=== PATIENT | male | born 1945 | race Two or more races ===

== ENCOUNTER 2020-01-17 09:55 | Outpatient (REF) | payer MEDICARE, SELFPAY ==
[2020-01-17 11:00] LABS: Anion Gap 12 (12-20); Blood Urea Nitrogen 33 mg/dL (9-16); Calcium 9.7 mg/dL (8.4-10.2); Carbon Dioxide 26 mmol/L (22-29); Chloride 106 mmol/L (96-108); Estimated Glomerular Filt Rate 25; Phosphorus 2.7 mg/dL (2.7-4.5); Potassium 4.8 mmol/l (3.3-5.1); Sodium 139 mmol/L (135-145)
[2020-01-17 11:49] LABS: Renal w Reflex Lab Use Only Order verified
== END 2020-01-17 09:56 | disposition home or self-care (01) ==
LOC: HO.LAB 09:55
PROVIDERS: PCP Internal Medicine; Visit Provider Internal Medicine Nephrology
DX: I12.9 Hypertensive chronic kidney disease with stage 1 through stage 4 chronic kidney disease, or unspecified chronic kidney disease (principal); N18.30 Chronic kidney disease, stage 3 unspecified
CPT/HCPCS: 80051; 82310; 82565; 84100; 84520

== ENCOUNTER 2020-02-21 09:29 | Outpatient (REF) | payer MEDICARE, SELFPAY ==
[2020-02-21 11:14] LABS: Anion Gap 13 (12-20); Blood Urea Nitrogen 30 mg/dL (9-16); Calcium 9.7 mg/dL (8.4-10.2); Carbon Dioxide 26 mmol/L (22-29); Chloride 108 mmol/L (96-108); Estimated Glomerular Filt Rate 30; Phosphorus 2.6 mg/dL (2.7-4.5); Sodium 142 mmol/L (135-145)
[2020-02-21 11:56] LABS: Renal w Reflex Lab Use Only Order verified
== END 2020-02-21 09:30 | disposition home or self-care (01) ==
LOC: HO.LAB 09:29
PROVIDERS: PCP Internal Medicine; Visit Provider Internal Medicine Nephrology
DX: I12.9 Hypertensive chronic kidney disease with stage 1 through stage 4 chronic kidney disease, or unspecified chronic kidney disease (principal); N18.30 Chronic kidney disease, stage 3 unspecified
CPT/HCPCS: 80051; 82310; 82565; 84100; 84520

== ENCOUNTER 2020-05-29 09:40 | Outpatient (REF) | payer MEDICARE, SELFPAY ==
[2020-05-29 11:05] LABS: Anion Gap 9 (12-20); Blood Urea Nitrogen 34 mg/dL (9-16); Calcium 9.8 mg/dL (8.4-10.2); Carbon Dioxide 31 mmol/L (22-29); Chloride 105 mmol/L (96-108); Estimated Glomerular Filt Rate 29; Phosphorus 2.8 mg/dL (2.7-4.5); Potassium 4.8 mmol/L (3.3-5.1); Sodium 140 mmol/L (135-145)
[2020-05-29 11:54] LABS: Renal w Reflex Lab Use Only Order verified
== END 2020-05-29 09:41 | disposition home or self-care (01) ==
LOC: HO.LAB 09:40
PROVIDERS: PCP Internal Medicine; Visit Provider Internal Medicine Nephrology
DX: I12.9 Hypertensive chronic kidney disease with stage 1 through stage 4 chronic kidney disease, or unspecified chronic kidney disease (principal); N18.30 Chronic kidney disease, stage 3 unspecified
CPT/HCPCS: 36415; 80051; 82310; 82565; 84100; 84520

== ENCOUNTER → 2020-06-25 13:54 | Outpatient (BNVA) | payer MEDICARE, SELFPAY | PROVIDERS: PCP Internal Medicine; Visit Provider Internal Medicine | DX: J44.9 Chronic obstructive pulmonary disease, unspecified (principal); J61 Pneumoconiosis due to asbestos and other mineral fibers; J84.10 Pulmonary fibrosis, unspecified | CPT/HCPCS: 99212 ==

== ENCOUNTER 2020-08-28 09:39 | Outpatient (REF) | payer MEDICARE, SELFPAY ==
[2020-08-28 10:50] LABS: MANUAL DIFF FLAG NO
[2020-08-28 11:00] LABS: Basophils Absolute Auto 0.1 X10*3/uL (0.0-0.2); Basophils Percent Auto 0.9 % (0-2); Eosinophils Absolute Auto 1.3 X10*3/uL (0.0-0.4); Eosinophils Percent Auto 16.5 % (0-4); Hematocrit 33.4 % (42-52); Hemoglobin 10.1 g/dl (14.0-18.0); Imm Gran Abs Auto 0.02 X10*3/uL (0.00-0.03); Imm Gran Pct Auto 0.3 % (0.0-0.4); Lymphocytes Absolute Auto 1.7 X10*3/uL (1.2-4.9); Lymphocytes Percent Auto 21.1 % (20-40); Mean Corpuscular HGB Conc 30.2 g/dl (31.0-36.0); Mean Corpuscular Hemoglobin 25.3 pg (27.0-33.0); Mean Corpuscular Volume 83.5 fL (80-98); Mean Platelet Volume 11.2 fL (9.4-12.4); Monocytes Absolute Auto 0.8 X10*3/uL (0.1-1.2); Monocytes Percent Auto 9.9 % (2-11); Neutrophils Absolute Auto 4.1 X10*3/uL (2.0-8.3); Neutrophils Percent Auto 51.3 % (45-73); Platelet Count 221 X10*3/uL (160-400); Red Cell Distribution Width 14.8 % (11.0-16.0)
[2020-08-28 11:23] LABS: Anion Gap 9 (12-20); Blood Urea Nitrogen 28 mg/dL (9-16); Calcium 9.8 mg/dL (8.4-10.2); Carbon Dioxide 27 mmol/L (22-29); Chloride 109 mmol/L (96-108); Estimated Glomerular Filt Rate 32; Potassium 4.8 mmol/L (3.3-5.1); Sodium 140 mmol/L (135-145)
== END 2020-08-28 09:40 | disposition home or self-care (01) ==
LOC: HO.LAB 09:39
PROVIDERS: PCP Internal Medicine; Visit Provider Internal Medicine Nephrology
DX: I12.9 Hypertensive chronic kidney disease with stage 1 through stage 4 chronic kidney disease, or unspecified chronic kidney disease (principal); N18.31 Chronic kidney disease, stage 3a
CPT/HCPCS: 36415; 80051; 82310; 82565; 84520; 85025

== ENCOUNTER → 2020-10-10 14:59 | Outpatient (BNVA) | payer MEDICARE, SELFPAY | PROVIDERS: PCP Internal Medicine; Visit Provider Internal Medicine | DX: J84.10 Pulmonary fibrosis, unspecified (principal); J44.9 Chronic obstructive pulmonary disease, unspecified; Z79.899 Other long term (current) drug therapy | CPT/HCPCS: 99212 ==

== ENCOUNTER 2020-12-17 11:34 | Outpatient (REF) | payer MEDICARE, SELFPAY ==
[2020-12-17 12:44] LABS: Anion Gap 13 (12-20); Blood Urea Nitrogen 29 mg/dL (9-16); Calcium 9.6 mg/dL (8.4-10.2); Carbon Dioxide 23 mmol/L (22-29); Chloride 106 mmol/L (96-108); Estimated Glomerular Filt Rate 31; Potassium 4.8 mmol/L (3.3-5.1); Sodium 137 mmol/L (135-145)
== END 2020-12-17 11:35 | disposition home or self-care (01) ==
LOC: HO.LAB 11:34
PROVIDERS: Absent Provider Internal Medicine; PCP Internal Medicine; Visit Provider Internal Medicine Nephrology
DX: I12.9 Hypertensive chronic kidney disease with stage 1 through stage 4 chronic kidney disease, or unspecified chronic kidney disease (principal); N18.31 Chronic kidney disease, stage 3a
CPT/HCPCS: 36415; 80051; 82310; 82565; 84520

== ENCOUNTER → 2021-02-26 15:07 | Outpatient (BNVA) | payer MEDICARE, SELFPAY | PROVIDERS: PCP Internal Medicine; Visit Provider Internal Medicine | DX: J44.9 Chronic obstructive pulmonary disease, unspecified (principal); J84.10 Pulmonary fibrosis, unspecified | CPT/HCPCS: 99212 ==

== ENCOUNTER 2021-03-18 09:41 | Outpatient (REF) | payer MEDICARE, SELFPAY ==
[2021-03-18 10:36] LABS: Anion Gap 11 (12-20); Blood Urea Nitrogen 32 mg/dL (9-16); Calcium 9.8 mg/dL (8.4-10.2); Carbon Dioxide 22 mmol/L (22-29); Chloride 110 mmol/L (96-108); Estimated Glomerular Filt Rate 27; Potassium 4.4 mmol/L (3.3-5.1); Sodium 139 mmol/L (135-145)
== END 2021-03-18 09:42 | disposition home or self-care (01) ==
LOC: HO.LAB 09:41
PROVIDERS: Visit Provider Internal Medicine Nephrology
DX: I12.9 Hypertensive chronic kidney disease with stage 1 through stage 4 chronic kidney disease, or unspecified chronic kidney disease (principal); N18.31 Chronic kidney disease, stage 3a
CPT/HCPCS: 36415; 80051; 82310; 82565; 84520

== ENCOUNTER 2021-06-16 15:02 | Outpatient (REF) | payer OTHER, SELFPAY ==
--- NOTE | ~2021-06-16 | XR_ITS ---
EXAMINATION: XR CHEST CLINICAL INFORMATION: Localized edema COMPARISON: Chest x-ray 11/07/2019. TECHNIQUE: 2 views of the chest were obtained. FINDINGS: The lungs are expanded with increased bilateral pulmonary vascularity and perihilar interstitial thickening consistent with interstitial edema. There is moderate cardiomegaly. No consolidation seen. Trace linear hyperdensity seen along the right diaphragm. There is blunting of bilateral CP angle likely pleural effusion. No gross bony abnormality XR/XR chest 2V IMPRESSION: Cardiomegaly with CHF. Bilateral small pleural effusions.
== END 2021-06-16 15:03 | disposition home or self-care (01) ==
LOC: HO.XRAY 15:02
PROVIDERS: PCP Internal Medicine; Visit Provider Internal Medicine
DX: R60.0 Localized edema (principal)
CPT/HCPCS: 71046

== ENCOUNTER → 2021-06-25 14:08 | Outpatient (BNVA) | payer OTHER, SELFPAY | PROVIDERS: PCP Internal Medicine; Visit Provider Internal Medicine | DX: J61 Pneumoconiosis due to asbestos and other mineral fibers (principal); J84.10 Pulmonary fibrosis, unspecified; J44.9 Chronic obstructive pulmonary disease, unspecified | CPT/HCPCS: 99212 ==

== ENCOUNTER 2021-07-17 10:38 | Outpatient (REF) | payer OTHER, SELFPAY ==
[2021-07-17 12:26] LABS: Anion Gap 11 (12-20); Blood Urea Nitrogen 23 mg/dL (9-16); Calcium 10.4 mg/dL (8.4-10.2); Carbon Dioxide 29 mmol/L (22-29); Chloride 102 mmol/L (96-108); Estimated Glomerular Filt Rate 36; Sodium 137 mmol/L (135-145)
[2021-07-18 13:02] LABS: Calcium (PTHI) 10.4 mg/dL (8.6-10.3); PTHI 140 pg/mL (16-77)
== END 2021-07-17 10:39 | disposition home or self-care (01) ==
LOC: HO.LAB 10:38
PROVIDERS: PCP Internal Medicine; Visit Provider Internal Medicine Nephrology
DX: I11.0 Hypertensive heart disease with heart failure (principal); N18.31 Chronic kidney disease, stage 3a
CPT/HCPCS: 36415; 80051; 82310; 82565; 83970; 84520

== ENCOUNTER → 2021-07-30 10:41 | Outpatient (BNVA) | payer OTHER, SELFPAY | PROVIDERS: PCP Internal Medicine; Visit Provider Internal Medicine | DX: J44.9 Chronic obstructive pulmonary disease, unspecified (principal); J61 Pneumoconiosis due to asbestos and other mineral fibers; J84.10 Pulmonary fibrosis, unspecified | CPT/HCPCS: 99212 ==

== ENCOUNTER 2021-11-13 09:18 | Outpatient (REF) | payer OTHER, SELFPAY ==
[2021-11-13 10:44] LABS: Anion Gap 16 (12-20); Blood Urea Nitrogen 31 mg/dL (9-16); Calcium 9.8 mg/dL (8.4-10.2); Carbon Dioxide 26 mmol/L (22-29); Chloride 102 mmol/L (96-108); Estimated Glomerular Filt Rate 30; Sodium 140 mmol/L (135-145)
== END 2021-11-13 09:19 | disposition home or self-care (01) ==
LOC: HO.LAB 09:18
PROVIDERS: Visit Provider Internal Medicine Nephrology
DX: I12.9 Hypertensive chronic kidney disease with stage 1 through stage 4 chronic kidney disease, or unspecified chronic kidney disease (principal); N18.31 Chronic kidney disease, stage 3a
CPT/HCPCS: 36415; 80051; 82310; 82565; 84520

== ENCOUNTER → 2021-11-26 10:44 | Outpatient (BNVA) | payer OTHER, SELFPAY | PROVIDERS: PCP Internal Medicine; Visit Provider Internal Medicine | DX: J44.9 Chronic obstructive pulmonary disease, unspecified (principal); J61 Pneumoconiosis due to asbestos and other mineral fibers; J84.10 Pulmonary fibrosis, unspecified; G47.34 Idiopathic sleep related nonobstructive alveolar hypoventilation | CPT/HCPCS: 99212 ==

== ENCOUNTER 2022-01-13 10:11 | Outpatient (REF) | payer OTHER, SELFPAY ==
--- NOTE | ~2022-01-13 | XR_ITS ---
EXAMINATION: XR LUMBOSACRAL SPINE CLINICAL INFORMATION: Low back pain COMPARISON: Chest radiographs 06/16/2021, CT chest 09/12/2018. TECHNIQUE: Three views of the lumbosacral spine. FINDINGS: There is normal lumbar segmentation with 5 nonrib-bearing lumbar vertebrae and normal lumbar lordosis. There is generalized osteopenia/osteoporosis. A chronic T12 compression deformity is present similar to prior studies. There are accentuated soft and concave endplates at L2, L4, and L5. There is additional loss of height of L5 of uncertain chronicity. No destructive process or erosive change. No spondylolisthesis. The SI joints and visualized sacrum are unremarkable. XR/XR lumbar spine 2-3V IMPRESSION: 1. Generalized osteopenia/osteoporosis. 2. Chronic T12 compression deformity similar to prior studies. 3. Loss of height L5 of uncertain chronicity. Accentuated endplate concavity at L2, L4, and L5. 4. No spondylolisthesis or destructive process.
== END 2022-01-13 10:12 | disposition home or self-care (01) ==
LOC: HO.XRAY 10:11
PROVIDERS: PCP Internal Medicine; Visit Provider Internal Medicine
DX: M54.50 Low back pain, unspecified (principal)
CPT/HCPCS: 72100

== ENCOUNTER 2022-02-26 10:19 | Outpatient (REF) | payer OTHER, SELFPAY ==
[2022-02-26 12:41] LABS: Anion Gap 12 (12-20); Blood Urea Nitrogen 22 mg/dL (9-16); Calcium 10.3 mg/dL (8.4-10.2); Carbon Dioxide 28 mmol/L (22-29); Chloride 103 mmol/L (96-108); Estimated Glomerular Filt Rate 29; Potassium 4.1 mmol/L (3.3-5.1); Sodium 139 mmol/L (135-145)
== END 2022-02-26 10:20 | disposition home or self-care (01) ==
LOC: HO.LAB 10:19
PROVIDERS: PCP Internal Medicine; Visit Provider Internal Medicine Nephrology
DX: I12.9 Hypertensive chronic kidney disease with stage 1 through stage 4 chronic kidney disease, or unspecified chronic kidney disease (principal); N18.31 Chronic kidney disease, stage 3a
CPT/HCPCS: 36415; 80051; 82310; 82565; 84520

== ENCOUNTER → 2022-04-01 13:47 | Outpatient (BNVA) | payer OTHER, SELFPAY | PROVIDERS: PCP Internal Medicine; Visit Provider Internal Medicine | DX: J44.9 Chronic obstructive pulmonary disease, unspecified (principal); J61 Pneumoconiosis due to asbestos and other mineral fibers; G47.34 Idiopathic sleep related nonobstructive alveolar hypoventilation | CPT/HCPCS: 99212 ==

== ENCOUNTER 2022-06-05 09:31 | Outpatient (REF) | payer OTHER, SELFPAY ==
[2022-06-05 11:05] LABS: Anion Gap 11 (12-20); Blood Urea Nitrogen 22 mg/dL (9-16); Calcium 9.5 mg/dL (8.4-10.2); Carbon Dioxide 28 mmol/L (22-29); Chloride 104 mmol/L (96-108); Estimated Glomerular Filt Rate 30; Potassium 4.2 mmol/L (3.3-5.1); Sodium 139 mmol/L (135-145)
== END 2022-06-05 09:32 | disposition home or self-care (01) ==
LOC: HO.LAB 09:31
PROVIDERS: PCP Internal Medicine; Visit Provider Internal Medicine Nephrology
DX: I12.9 Hypertensive chronic kidney disease with stage 1 through stage 4 chronic kidney disease, or unspecified chronic kidney disease (principal); N18.31 Chronic kidney disease, stage 3a
CPT/HCPCS: 36415; 80051; 82310; 82565; 84520

== ENCOUNTER → 2022-07-08 10:30 | Outpatient (BNVA) | payer OTHER, SELFPAY | PROVIDERS: PCP Internal Medicine; Visit Provider Internal Medicine | DX: J44.9 Chronic obstructive pulmonary disease, unspecified (principal); J61 Pneumoconiosis due to asbestos and other mineral fibers; G47.34 Idiopathic sleep related nonobstructive alveolar hypoventilation | CPT/HCPCS: 99212 ==

== ENCOUNTER 2022-10-08 09:21 | Outpatient (REF) | payer OTHER, SELFPAY ==
[2022-10-08 11:18] LABS: Anion Gap 11 (12-20); Blood Urea Nitrogen 22 mg/dL (9-16); Calcium 10.2 mg/dL (8.4-10.2); Carbon Dioxide 25 mmol/L (22-29); Chloride 106 mmol/L (96-108); Estimated Glomerular Filt Rate 34; Potassium 4.2 mmol/L (3.3-5.1); Sodium 138 mmol/L (135-145)
== END 2022-10-08 09:22 | disposition home or self-care (01) ==
LOC: HO.LAB 09:21
PROVIDERS: PCP Internal Medicine Nephrology; Visit Provider Internal Medicine Nephrology
DX: I12.9 Hypertensive chronic kidney disease with stage 1 through stage 4 chronic kidney disease, or unspecified chronic kidney disease (principal); N18.31 Chronic kidney disease, stage 3a
CPT/HCPCS: 36415; 80051; 82310; 82565; 84520

== ENCOUNTER 2022-11-11 10:59 | Outpatient (AMB) | payer OTHER, SELFPAY ==
[2022-11-11 11:03] VITALS: BP 152/62; PULSE 79; O2SAT 92; BMI 32.2
--- NOTE | 2022-11-11 11:03 | MHC.OFFVIS ---
Intake Vital Signs 11/11/22 11:03 Height 5 ft 4 in Weight 187 lb 6.287 oz BMI 32.2 BP 152/62 H Blood Pressure Location Lt brachial Position Sitting Pulse 79 Pulse Source Pulse Oximeter Pulse Oximetry (%) 92 Oxygen Delivery Method Room Air Intake Visit Reasons: copd Allergies No Known Allergies Allergy (Verified 11/11/22 11:18) Medication List - Last Reconciled 11/11/22 by Lorin Perry MD albuterol sulfate 90 mcg/actuation 2 puffs inhalation Q4-6H PRN 30 days apixaban (Eliquis) 5 mg PO BID diltiazem HCl ER 360 mg PO DAILY hydralazine 100 mg PO TID isosorbide mononitrate ER 120 mg PO DAILY labetalol 100 mg PO DAILY losartan 100 mg PO DAILY omeprazole 20 mg PO DAILY tamsulosin 0.4 mg PO BEDTIME umeclidinium 62.5 mcg/actuation (Incruse Ellipta) 1 inh inhalation DAILY 30 days Do you need a note to return to daycare/school/sports/work: No HPI copd HPI Details 77 years old very pleasant, Australian-speaking gentleman, comes for his regular follow-up. He does not smoke. Breathing status has remained very stable without any acute exacerbation. Continues to use Incruse Ellipta once a day and Ventolin inhaler only as needed, which is rare. Denies cough or expectoration and denies any wheezing attacks. [facility] Medical History COPD (chronic obstructive pulmonary disease) Nocturnal hypoxemia Pulmonary asbestosis Pulmonary fibrosis Social History Patient Tobacco Use Status: Never used Tobacco Review of Systems Const All systems reviewed & are unremarkable except as noted in HPI and below Eyes Reports no additional complaints ENT Reports nasal congestion (Mild intermittent) Card Denies irregular heart rhythm and Denies leg edema Resp Reports as per HPI GI Reports heartburn (Controlled with med) Reports no additional complaints Musc Reports no additional complaints Skin/Breast Reports system reviewed and no additional complaints, except as documented Neuro Reports no additional complaints Psych Reports no additional complaints Physical Exam Vital Signs: Last Vital Signs Pulse 79 11/11/22 11:03 BP 152/62 H 11/11/22 11:03 Pulse Ox 92 11/11/22 11:03 Oxygen Delivery Method Room Air 11/11/22 11:03 BMI result Body Mass Index 32.2 Const General: comfortable, no acute distress, alert and awake Orientation/consciousness: patient oriented x3 HEENT Head: Yes normal to inspection General nose exam: No nasal polyps present and No nasal discharge present Face and sinus: Yes sinuses nontender Mouth: oropharynx normal Throat: Yes posterior oropharynx normal Eyes General: appearance normal, both eyes and all related structures Neck Neck: Yes normal visual inspection, Yes no lymphadenopathy, Yes trachea midline and Yes no JVD Thyroid: Thyroid normal Chest Chest palpation & inspection: normal inspection of the chest, normal palpation of entire chest wall and no tenderness Resp Other: Percussion note is resonant, he has equal breath sounds on both sides somewhat distant with prolonged expiratory phase. NO WHEEZES OR CREPITATIONS ARE HEARD. Cardio Palpation: normal PMI Rate: regular rate Rhythm: regular rhythm Heart sounds: no gallops and no murmurs GI Palpation (GI): Soft to palpation, nontender, No hepatosplenomegaly present and no masses Auscultation: normal bowel sounds Back/Spine/Pelvis Thoracic/Lumbar Spine: thoracic and lumbar spine normal to inspection Skin General skin exam: no rashes or lesions noted Neuro General: patient oriented x3 and no focal motor deficits Cranial nerves: Yes CN's II-XII intact bilaterally Extrem General: Yes normal to inspection, Yes no clubbing, cyanosis or edema and Yes no calf tenderness Psych Appearance: grossly normal and well kempt Speech and movement: Normal speech and movement present Assessment & Plan Assessment & Plan (1) COPD (chronic obstructive pulmonary disease): Comment: MILD TO MODERTAE DEGREE OF COPD , MOSTLY WELL CONTROLLED, COMPLAINS OF MILD INTERMITTENT COUGH . TX: INCRUSE ELLIPTA 1 INHALATION DAILY TO CONTINUE. VENTOLIN 2 PUFFS Q 4-6 HOURS P.R.N. TO CONTINUE MAY TAKE COUGH MEDICINE SUCH ROBITUSSIN, 2 TSP T.I.D. P.R.N.. Code(s): J44.9 - Chronic obstructive pulmonary disease, unspecified (2) Pulmonary asbestosis: Comment: CHRONIC , MINIMAL. STABLE . Code(s): J61 - Pneumoconiosis due to asbestos and other mineral fibers (3) Pulmonary fibrosis: Comment: MILD , SEC TO ASBESTOSIS ,STABLE . DOES NOT NEED ANY ACTIVE MEDICATION. Code(s): J84.10 - Pulmonary fibrosis, unspecified (4) Nocturnal hypoxemia: Comment: DUE TO HIS COPD/CONGESTIVE HEART FAILURE HE DOES HAVE HISTORY OF NOCTURNAL HYPOXEMIA. TX: ADVISED TO CONTINUE USING OXYGEN 2 L/MINUTE AT NIGHT , MAY ALSO USE P.R.N. DURING THE DAYTIME IF HE FEELS SHORT OF BREATH. Code(s): G47.34 - Idiopathic sleep related nonobstructive alveolar hypoventilation Coding Level of Care Code Est Pt Level 3 (29660) Diagnoses COPD (chronic obstructive pulmonary disease) J44.9 Pulmonary asbestosis J61 Pulmonary fibrosis J84.10 Nocturnal hypoxemia G47.34
== END 2022-11-11 11:19 | disposition home or self-care (01) ==
PROVIDERS: PCP Internal Medicine; Visit Provider Internal Medicine
DX: J44.9 Chronic obstructive pulmonary disease, unspecified (principal); J61 Pneumoconiosis due to asbestos and other mineral fibers; J84.10 Pulmonary fibrosis, unspecified; G47.34 Idiopathic sleep related nonobstructive alveolar hypoventilation
CPT/HCPCS: 99213

== ENCOUNTER → 2022-11-11 10:59 | Outpatient (BNVA) | payer OTHER, SELFPAY | PROVIDERS: Visit Provider Internal Medicine | DX: J44.9 Chronic obstructive pulmonary disease, unspecified (principal); J61 Pneumoconiosis due to asbestos and other mineral fibers; J84.10 Pulmonary fibrosis, unspecified; G47.34 Idiopathic sleep related nonobstructive alveolar hypoventilation | CPT/HCPCS: 99212 ==

== ENCOUNTER 2023-01-07 09:33 | Outpatient (REF) | payer OTHER, SELFPAY ==
[2023-01-07 12:06] LABS: Anion Gap 12 (12-20); Blood Urea Nitrogen 22 mg/dL (9-16); Calcium 10.3 mg/dL (8.4-10.2); Carbon Dioxide 24 mmol/L (22-29); Chloride 108 mmol/L (96-108); Estimated Glomerular Filt Rate 33; Potassium 3.5 mmol/L (3.3-5.1); Sodium 140 mmol/L (135-145)
[2023-01-07 13:37] LABS: Creatinine Urine 114.71 mg/dL; Total Protein Urine Random 46 mg/dL (<12)
== END 2023-01-07 09:34 | disposition home or self-care (01) ==
LOC: HO.LAB 09:33
PROVIDERS: PCP Internal Medicine; Visit Provider Internal Medicine Nephrology
DX: I12.9 Hypertensive chronic kidney disease with stage 1 through stage 4 chronic kidney disease, or unspecified chronic kidney disease (principal); N18.31 Chronic kidney disease, stage 3a
CPT/HCPCS: 36415; 80051; 82310; 82565; 82570; 84156; 84520

== ENCOUNTER 2023-01-22 10:49 | Outpatient (AMB) | payer OTHER, SELFPAY ==
[2023-01-22 11:14] VITALS: BP 144/70; PULSE 64; BMI 32.5
--- NOTE | 2023-01-22 11:14 | HO.NEPHOV_ITS ---
Intake Vital Signs 01/22/23 11:14 Height 5 ft 4 in Weight 189 lb 6 oz BMI 32.5 BP 144/70 H Blood Pressure Location Lt brachial Position Sitting Pulse 64 Pulse Source Pulse Oximeter Intake Visit Reasons: CKD HTN - Confirmed Supervisor Litharge Required: Yes Supervisor Litharge Name: Jerrica Accompanied by: Family/Other Allergies No Known Allergies Allergy (Verified 01/22/23 11:15) HPI HPI Comments History of Present Illness Details I had the privilege of seeing Karri in follow up for CKD and hypertension. He has pulmonary fibrosis. He denies DM but has hypertension for a long time. He denies neuropathy , retinopathy, ROSALIND , PAD or carotid stenosis. He is on SGLT2i. He does not take NSAID's regularly. He denies any nausea, vomiting, diarrhea, worsening SOB, edema, PND, orthopnea, hematuria, hearing deficits hepatitis or HIV. He claims to be compliant with medications. He has no sinusitis, epistaxis, photosensitivity, bone pain, sore throat , hemoptysis, skin lesions or recent antibiotic intake. He denied any new active complaints at the time of this office visit Assessment & Plan Assessment & Plan (1) Hypertension: Code(s): I10 - Essential (primary) hypertension (2) CKD (chronic kidney disease) stage 3, GFR 30-59 ml/min: Code(s): N18.30 - Chronic kidney disease, stage 3 unspecified Plan Renal function stable Blood pressure at goal On SGLT2 i; No NSAID's Needs weight loss No medication changes today Labs ordered; Answered all questions Follow up given Time spent reviewing chart, encounter,ordering labs,documentation 31 minutes Orders: Orders Electrolytes 01/22/23 I10 - Essential (primary) hypertension, N18.30 - Chronic kidney disease, stage 3 unspecified Calcium 01/22/23 I10 - Essential (primary) hypertension, N18.30 - Chronic kidney disease, stage 3 unspecified Protein Creatinine Ratio, Ur 01/22/23 I10 - Essential (primary) hypertension, N18.30 - Chronic kidney disease, stage 3 unspecified Blood Urea Nitrogen 01/22/23 I10 - Essential (primary) hypertension, N18.30 - Chronic kidney disease, stage 3 unspecified Creatinine 01/22/23 I10 - Essential (primary) hypertension, N18.30 - Chronic kidney disease, stage 3 unspecified Coding Level of Care Code Est Pt Level 3 (59734) Diagnoses Hypertension I10 CKD (chronic kidney disease) stage 3, GFR 30-59 ml/min N18.30 [facility] Medical History COPD (chronic obstructive pulmonary disease) Nocturnal hypoxemia Pulmonary asbestosis Pulmonary fibrosis Social History Patient Tobacco Use Status: Never used Tobacco
== END 2023-01-22 11:38 | disposition home or self-care (01) ==
LOC: HO.HKA 10:49
PROVIDERS: PCP Internal Medicine; Visit Provider Internal Medicine Nephrology
DX: I12.9 Hypertensive chronic kidney disease with stage 1 through stage 4 chronic kidney disease, or unspecified chronic kidney disease (principal); N18.30 Chronic kidney disease, stage 3 unspecified
CPT/HCPCS: 99214

== ENCOUNTER → 2023-01-22 10:49 | Outpatient (BNVA) | payer OTHER, SELFPAY | PROVIDERS: PCP Internal Medicine; Visit Provider Internal Medicine Nephrology | DX: I12.9 Hypertensive chronic kidney disease with stage 1 through stage 4 chronic kidney disease, or unspecified chronic kidney disease (principal); N18.30 Chronic kidney disease, stage 3 unspecified | CPT/HCPCS: 99212 ==

== ENCOUNTER 2023-04-22 10:23 | Outpatient (REF) | payer OTHER, SELFPAY ==
[2023-04-22 12:12] LABS: Anion Gap 10 (12-20); Blood Urea Nitrogen 20 mg/dL (9-16); Calcium 9.8 mg/dL (8.4-10.2); Carbon Dioxide 24 mmol/L (22-29); Chloride 109 mmol/L (96-108); Estimated Glomerular Filt Rate 38; Potassium 4.1 mmol/L (3.3-5.1); Sodium 139 mmol/L (135-145)
[2023-04-22 12:37] LABS: Creatinine Urine 122.66 mg/dL; Protein/Creatinine Ratio, Ur 0.61 (<0.2); Total Protein Urine Random 75 mg/dL (<12)
== END 2023-04-22 10:24 | disposition home or self-care (01) ==
LOC: HO.LAB 10:23
PROVIDERS: PCP Internal Medicine; Visit Provider Internal Medicine Nephrology
DX: I12.9 Hypertensive chronic kidney disease with stage 1 through stage 4 chronic kidney disease, or unspecified chronic kidney disease (principal); N18.30 Chronic kidney disease, stage 3 unspecified
CPT/HCPCS: 36415; 80051; 82310; 82565; 82570; 84156; 84520

== ENCOUNTER 2023-04-23 10:43 | Outpatient (AMB) | payer OTHER, SELFPAY ==
[2023-04-23 10:48] VITALS: BP 140/80; PULSE 79; BMI 32.7
--- NOTE | 2023-04-23 10:48 | HO.NEPHOV_ITS ---
HPI HPI Comments History of Present Illness Details I had the privilege of seeing Karri in follow up for CKD and hypertension. He has pulmonary fibrosis. He denies DM but has hypertension for a long time. He denies neuropathy , retinopathy, ROSALIND , PAD or carotid stenosis. He is on SGLT2i. He does not take NSAID's regularly. He denies any nausea, vomiting, diarrhea, worsening SOB, edema, PND, orthopnea, hematuria, hearing deficits hepatitis or HIV. He claims to be compliant with medications. He has no sinusitis, epistaxis, photosensitivity, bone pain, sore throat , hemoptysis, skin lesions or recent antibiotic intake. He denied any new active complaints at the time of this office visit [facility] Medical History COPD (chronic obstructive pulmonary disease) Nocturnal hypoxemia Pulmonary asbestosis Pulmonary fibrosis Social History Patient Tobacco Use Status: Never used Tobacco Vital Signs 04/23/23 10:48 Height 5 ft 4 in Weight 190 lb 8 oz BMI 32.7 BP 140/80 H Blood Pressure Location Lt brachial Position Sitting Pulse 79 Pulse Source Pulse Oximeter Physical Exam Vital Signs: Last Vital Signs Pulse 79 04/23/23 10:48 BP 140/80 H 04/23/23 10:48 BMI result Body Mass Index 32.7 Const General: comfortable and no acute distress Orientation/consciousness: patient oriented x3 HEENT Head: Yes normocephalic Mouth: Normal oral and palatal mucosa present Eyes EOM: EOMs intact bilaterally Neck Neck: Yes supple Resp Auscultation: clear to auscultation bilaterally Cardio Jugular venous distension: no JVD Rate: regular rate GI Palpation (GI): Soft to palpation Auscultation: normal bowel sounds General: Yes no CVA tenderness Back/Spine/Pelvis Back: no CVA tenderness Skin General skin exam: no rashes or lesions noted Neuro General: patient oriented x3 and moves all extremities Extrem General: Yes pedal edema Assessment & Plan Assessment & Plan (1) CKD (chronic kidney disease) stage 3, GFR 30-59 ml/min: Code(s): N18.30 - Chronic kidney disease, stage 3 unspecified Qualifiers: Chronic kidney disease stage 3 subtype: stage 3b (GFR 30-44) Qualified Code(s): N18.32 - Chronic kidney disease, stage 3b (2) Hypertension: Code(s): I10 - Essential (primary) hypertension Qualifiers: Hypertension type: primary hypertension Qualified Code(s): I10 - Essential (primary) hypertension Plan Renal function stable/better Blood pressure at goal On SGLT2 i; No NSAID's Needs weight loss Increased torsemide to 40 mg / 20 mg every other day No other medication changes today Labs ordered; Answered all questions Follow up given Orders: Orders Blood Urea Nitrogen Today I10 - Essential (primary) hypertension, N18.30 - Chronic kidney disease, stage 3 unspecified Electrolytes Today I10 - Essential (primary) hypertension, N18.30 - Chronic kidney disease, stage 3 unspecified Creatinine Today I10 - Essential (primary) hypertension, N18.30 - Chronic kidney disease, stage 3 unspecified Medications: Changed From torsemide 20 mg PO DAILY To torsemide take 2 tablets alternating with one tablet every other day 20 mg PO DAILY 45 tabs 6RF Coding Level of Care Code Est Pt Level 4 (23567) Diagnoses Stage 3b chronic kidney disease N18.32 Chronic kidney disease stage 3 subtype: stage 3b (GFR 30-44) Primary hypertension I10 Hypertension type: primary hypertension Results Reviewed Nephrology Results: Sodium 139 mmol/L (135-145) 04/22/23 Potassium 4.1 mmol/L (3.3-5.1) 04/22/23 Chloride 109 mmol/L (96-108) H 04/22/23 Carbon Dioxide 24 mmol/L (22-29) 04/22/23 BUN 20 mg/dL (9-16) H 04/22/23 Creatinine 1.76 mg/dL (0.5-1.4) H 04/22/23 Calcium 9.8 mg/dL (8.4-10.2) 04/22/23 Urine Creatinine 122.66 mg/dL 04/22/23 Protein/Creatinin Ratio 0.61 (<0.2) H 04/22/23
== END 2023-04-23 11:09 | disposition home or self-care (01) ==
PROVIDERS: PCP Internal Medicine; Visit Provider Internal Medicine Nephrology
DX: N18.32 Chronic kidney disease, stage 3b (principal); I10 Essential (primary) hypertension
CPT/HCPCS: 99214

== ENCOUNTER → 2023-04-23 10:43 | Outpatient (BNVA) | payer OTHER, SELFPAY | PROVIDERS: PCP Internal Medicine; Visit Provider Internal Medicine Nephrology | DX: I12.9 Hypertensive chronic kidney disease with stage 1 through stage 4 chronic kidney disease, or unspecified chronic kidney disease (principal); N18.30 Chronic kidney disease, stage 3 unspecified | CPT/HCPCS: 99212 ==

== ENCOUNTER 2023-05-19 12:44 | Outpatient (AMB) | payer OTHER, SELFPAY ==
--- NOTE | 2023-05-19 13:13 | A.OFFVIS_ITS ---
Intake Vital Signs 05/19/23 13:14 Height 5 ft 4 in Weight 189 lb BMI 32.4 BP 130/62 Blood Pressure Location Lt brachial Position Sitting Pulse 72 Pulse Source Pulse Oximeter Pulse Oximetry (%) 94 Oxygen Delivery Method Room Air Intake Visit Reasons: copd Intake Note: pt is here for follow up and states he is coughing a little, walking does cause him to have some short of breath. 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 Allergies No Known Allergies Allergy (Verified 05/19/23 13:35) Medication List - Last Reconciled 05/19/23 by Lorin Perry MD albuterol sulfate 90 mcg/actuation 2 puffs inhalation Q4-6H PRN 30 days apixaban (Eliquis) 5 mg PO BID aspirin 81 mg PO DAILY cholecalciferol (vitamin D3) (Vitamin D3) 25 mcg PO DAILY dapagliflozin propanediol (Farxiga) 10 mg PO DAILY diltiazem HCl ER 360 mg PO DAILY hydralazine 50 mg PO TID losartan 50 mg PO DAILY omeprazole 20 mg PO DAILY torsemide 20 mg PO DAILY umeclidinium 62.5 mcg/actuation (Incruse Ellipta) 1 inh inhalation DAILY 30 days Do you need a note to return to daycare/school/sports/work: No HPI copd HPI Details 77 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 HE CLAIMS TO BE MORE SHORT OF BREATH WHEN HE STARTS WALKING AROUND, COUGH IS ONLY MINIMAL WITHOUT MUCH EXPECTORATION. .DENIES ANY WHEEZING ATTACKS. HE FEELS OKAY WHEN HE IS JUST SITTING AND RESTING . HE HAS HAD NO RECENT RESPIRATORY INFECTION. [facility] Medical History Nocturnal hypoxemia Pulmonary fibrosis Pulmonary asbestosis COPD (chronic obstructive pulmonary disease) Social History Patient Tobacco Use Status: Never used Tobacco Review of Systems Const All systems reviewed & are unremarkable except as noted in HPI and below Eyes Reports no additional complaints ENT Reports nasal congestion (Mild intermittent) Card Denies irregular heart rhythm and Denies leg edema Resp Reports as per HPI GI Reports heartburn (Controlled with med) Reports no additional complaints Musc Reports no additional complaints Skin/Breast Reports system reviewed and no additional complaints, except as documented Neuro Reports no additional complaints Psych Reports no additional complaints Physical Exam Vital Signs: Last Vital Signs Pulse 72 05/19/23 13:14 BP 130/62 05/19/23 13:14 Pulse Ox 94 05/19/23 13:14 Oxygen Delivery Method Room Air 05/19/23 13:14 BMI result Body Mass Index 32.4 Const General: comfortable, no acute distress, alert and awake Orientation/consciousness: patient oriented x3 HEENT Head: Yes normal to inspection General nose exam: No nasal polyps present and No nasal discharge present Face and sinus: Yes sinuses nontender Mouth: oropharynx normal Throat: Yes posterior oropharynx normal Eyes General: appearance normal, both eyes and all related structures Neck Neck: Yes normal visual inspection, Yes no lymphadenopathy, Yes trachea midline and Yes no JVD Thyroid: Thyroid normal Chest Chest palpation & inspection: normal inspection of the chest, normal palpation of entire chest wall and no tenderness Resp Other: Percussion note is resonant, he has equal breath sounds on both sides somewhat distant with prolonged expiratory phase. NO WHEEZES OR CREPITATIONS ARE HEARD. Cardio Palpation: normal PMI Rate: regular rate Rhythm: regular rhythm Heart sounds: no gallops and no murmurs GI Palpation (GI): Soft to palpation, nontender, No hepatosplenomegaly present and no masses Auscultation: normal bowel sounds Back/Spine/Pelvis Thoracic/Lumbar Spine: thoracic and lumbar spine normal to inspection Skin General skin exam: no rashes or lesions noted Neuro General: patient oriented x3 and no focal motor deficits Cranial nerves: Yes CN's II-XII intact bilaterally Extrem General: Yes normal to inspection, Yes no clubbing, cyanosis or edema and Yes no calf tenderness Psych Appearance: grossly normal and well kempt Speech and movement: Normal speech and movement present Results Reviewed Results Reviewed: I WALKED WITH HIM IN THE HALLWAY FOR 4 MINUTES. O2 SAT AT REST 97%. AFTER WALKING 91 % Assessment & Plan Assessment & Plan (1) COPD (chronic obstructive pulmonary disease): Comment: MILD TO MODERTAE DEGREE OF COPD , MOSTLY WELL CONTROLLED, COMPLAINS OF MILD INTERMITTENT COUGH AND INCREASED SHORTNESS OF BREATH ON WALKING Code(s): J44.9 - Chronic obstructive pulmonary disease, unspecified Plan: EXPLAINED ABOUT THE REASON FOR HIS INCREASING SHORTNESS OF BREATH, DUE TO COMBINATION OF COPD AND CARDIAC DISEASE. TX: INCRUSE ELLIPTA 1 INHALATION DAILY TO CONTINUE. VENTOLIN 2 PUFFS Q 4-6 HOURS P.R.N. TO CONTINUE , MAY USE JUST 1 PUFF BEFORE HE STARTS WALKING AROUND MAY TAKE COUGH MEDICINE SUCH ROBITUSSIN, 2 TSP T.I.D. P.R.N.. (2) Pulmonary asbestosis: Comment: CHRONIC , MINIMAL. STABLE . Code(s): J61 - Pneumoconiosis due to asbestos and other mineral fibers Plan: NO ACTIVE TREATMENT NEEDED (3) Nocturnal hypoxemia: Comment: DUE TO HIS COPD/CONGESTIVE HEART FAILURE HE DOES HAVE HISTORY OF NOCTURNAL HYPOXEMIA. Code(s): G47.34 - Idiopathic sleep related nonobstructive alveolar hypoventilation Plan: TX: ADVISED TO CONTINUE USING OXYGEN 2 L/MINUTE AT NIGHT , MAY ALSO USE P.R.N. DURING THE DAYTIME IF HE FEELS SHORT OF BREATH. Coding Level of Care Code Est Pt Level 3 (82151) Diagnoses COPD (chronic obstructive pulmonary disease) J44.9 Pulmonary asbestosis J61 Nocturnal hypoxemia G47.34
[2023-05-19 13:14] VITALS: BP 130/62; PULSE 72; O2SAT 94; BMI 32.4
== END 2023-05-19 13:46 | disposition home or self-care (01) ==
PROVIDERS: PCP Internal Medicine Nephrology; Visit Provider Internal Medicine
DX: J44.9 Chronic obstructive pulmonary disease, unspecified (principal); J61 Pneumoconiosis due to asbestos and other mineral fibers; G47.34 Idiopathic sleep related nonobstructive alveolar hypoventilation
CPT/HCPCS: 99213

== ENCOUNTER → 2023-05-19 12:44 | Outpatient (BNVA) | payer OTHER, SELFPAY | PROVIDERS: PCP Internal Medicine Nephrology; Visit Provider Internal Medicine | DX: J44.9 Chronic obstructive pulmonary disease, unspecified (principal); J61 Pneumoconiosis due to asbestos and other mineral fibers; G47.34 Idiopathic sleep related nonobstructive alveolar hypoventilation | CPT/HCPCS: 99212 ==

== ENCOUNTER 2023-07-28 10:27 | Outpatient (AMB) | payer OTHER, SELFPAY ==
--- NOTE | 2023-07-28 10:30 | HO.NEPHOV ---
Vital Signs 07/28/23 10:32 Height 5 ft 4 in Weight 184 lb BMI 31.6 BP 144/60 H Blood Pressure Location Rt brachial Position Sitting Pulse 83 Pulse Source Pulse Oximeter Pulse Oximetry (%) 76 L Oxygen Delivery Method Room Air Intake Visit Reasons: CKD/ 3 MO FU/ No Voicemail Allergies No Known Allergies Allergy (Verified 07/28/23 10:35) HPI Comments Details: I had the privilege of seeing Karri in follow up for CKD and hypertension. He recently was admitted in the hospital for hypervolemia. He was found to be anemic and underwent upper & lower endoscopy. He is very iron deficient. He has pulmonary fibrosis. He denies DM but has hypertension for a long time. He denies neuropathy , retinopathy, ROSALIND , PAD or carotid stenosis. He is on SGLT2i. He does not take NSAID's regularly. He denies any nausea, vomiting, diarrhea, worsening SOB, edema, PND, orthopnea, hematuria, hearing deficits hepatitis or HIV. He claims to be compliant with medications. He has no sinusitis, epistaxis, photosensitivity, bone pain, sore throat , hemoptysis, skin lesions or recent antibiotic intake. [facility] Medical History Nocturnal hypoxemia Pulmonary fibrosis Pulmonary asbestosis COPD (chronic obstructive pulmonary disease) Social History Patient Tobacco Use Status: Never used Tobacco Physical Exam Vital Signs: Last Vital Signs Pulse 83 07/28/23 10:32 BP 144/60 H 07/28/23 10:32 Pulse Ox 76 L 07/28/23 10:32 Oxygen Delivery Method Room Air 07/28/23 10:32 BMI result Body Mass Index 31.6 Const General: comfortable and no acute distress Orientation/consciousness: patient oriented x3 HEENT Head: Yes normocephalic Mouth: Normal oral and palatal mucosa present Eyes EOM: EOMs intact bilaterally Neck Neck: Yes supple Resp Auscultation: clear to auscultation bilaterally Cardio Jugular venous distension: no JVD Rate: regular rate GI Palpation (GI): Soft to palpation Auscultation: normal bowel sounds General: Yes no CVA tenderness Back/Spine/Pelvis Back: no CVA tenderness Skin General skin exam: no rashes or lesions noted Neuro General: patient oriented x3 and moves all extremities Extrem General: Yes no pedal edema Results Reviewed Nephrology Results: Sodium 139 mmol/L (135-145) 04/22/23 Potassium 4.1 mmol/L (3.3-5.1) 04/22/23 Chloride 109 mmol/L (96-108) H 04/22/23 Carbon Dioxide 24 mmol/L (22-29) 04/22/23 BUN 20 mg/dL (9-16) H 04/22/23 Creatinine 1.76 mg/dL (0.5-1.4) H 04/22/23 Calcium 9.8 mg/dL (8.4-10.2) 04/22/23 Urine Creatinine 122.66 mg/dL 04/22/23 Protein/Creatinin Ratio 0.61 (<0.2) H 04/22/23 Assessment & Plan Assessment & Plan (1) CKD (chronic kidney disease) stage 3, GFR 30-59 ml/min: Code(s): N18.30 - Chronic kidney disease, stage 3 unspecified Category: Medical Qualifiers: Chronic kidney disease stage 3 subtype: stage 3b (GFR 30-44) Qualified Code(s): N18.32 - Chronic kidney disease, stage 3b (2) Hypertension: Code(s): I10 - Essential (primary) hypertension Category: Medical Qualifiers: Hypertension type: primary hypertension Qualified Code(s): I10 - Essential (primary) hypertension (3) Proteinuria: Code(s): R80.9 - Proteinuria, unspecified Category: Medical Qualifiers: Proteinuria type: other Qualified Code(s): R80.8 - Other proteinuria (4) Iron deficiency: Code(s): E61.1 - Iron deficiency Category: Medical Plan Renal function stable Had MIRZA recently due to tubular injury Blood pressure at goal at home On SGLT2 i; No NSAID's Needs weight loss C/W torsemide current dose Shall arrange IV iron No other medication changes today Labs ordered; Answered all questions Time spent for retrieving data/encounter/documentation 57 mts Orders: Orders Creatinine Today E61.1 - Iron deficiency, I10 - Essential (primary) hypertension, N18.32 - Chronic kidney disease, stage 3b, R80.8 - Other proteinuria Blood Urea Nitrogen Today E61.1 - Iron deficiency, I10 - Essential (primary) hypertension, N18.32 - Chronic kidney disease, stage 3b, R80.8 - Other proteinuria Electrolytes Today E61.1 - Iron deficiency, I10 - Essential (primary) hypertension, N18.32 - Chronic kidney disease, stage 3b, R80.8 - Other proteinuria Complete Blood Count Auto Diff Today E61.1 - Iron deficiency, I10 - Essential (primary) hypertension, N18.32 - Chronic kidney disease, stage 3b, R80.8 - Other proteinuria Coding Level of Care Code Est Pt Level 5 (20623) Diagnoses Stage 3b chronic kidney disease N18.32 Chronic kidney disease stage 3 subtype: stage 3b (GFR 30-44) Primary hypertension I10 Hypertension type: primary hypertension Other proteinuria R80.8 Proteinuria type: other Iron deficiency E61.1
[2023-07-28 10:32] VITALS: BP 144/60; PULSE 83; O2SAT 76; BMI 31.6
== END 2023-07-28 11:01 | disposition home or self-care (01) ==
PROVIDERS: PCP Internal Medicine; Visit Provider Internal Medicine Nephrology
DX: I12.9 Hypertensive chronic kidney disease with stage 1 through stage 4 chronic kidney disease, or unspecified chronic kidney disease (principal); N18.32 Chronic kidney disease, stage 3b; R80.8 Other proteinuria; E61.1 Iron deficiency
CPT/HCPCS: 99214

== ENCOUNTER 2023-07-28 10:27 | Outpatient (REF) | payer OTHER, SELFPAY ==
[2023-07-28 11:40] LABS: MANUAL DIFF FLAG NO
[2023-07-28 12:04] LABS: Basophils Absolute Auto 0.1 X10*3/uL (0.0-0.2); Basophils Percent Auto 0.9 % (0-2); Eosinophils Absolute Auto 0.6 X10*3/uL (0.0-0.4); Eosinophils Percent Auto 7.2 % (0-4); Hematocrit 28.1 % (42.0-52.0); Hemoglobin 7.9 g/dl (14.0-18.0); Imm Gran Abs Auto 0.03 X10*3/uL (0.00-0.03); Imm Gran Pct Auto 0.3 % (0.0-0.4); Lymphocytes Absolute Auto 1.9 X10*3/uL (1.2-4.9); Lymphocytes Percent Auto 21.9 % (20-40); Mean Corpuscular HGB Conc 28.1 g/dl (31.0-36.0); Mean Corpuscular Volume 67.7 fL (80.0-98.0); Mean Platelet Volume 10.3 fL (9.4-12.4); Monocytes Absolute Auto 0.7 X10*3/uL (0.1-1.2); Monocytes Percent Auto 7.9 % (2-11); Neutrophils Absolute Auto 5.4 x10*3/uL (2.0-8.3); Neutrophils Percent Auto 61.8 % (45-73); Platelet Count 415 X10*3/uL (160-400); Red Blood Count 4.15 X10*6/uL (4.60-5.80); Red Cell Distribution Width 25.4 % (11.0-16.0); White Blood Count 8.8 X10*3/uL (4.8-10.8)
[2023-07-28 13:02] LABS: Anion Gap 13 (12-20); Blood Urea Nitrogen 29 mg/dL (9-16); Carbon Dioxide 26 mmol/L (22-29); Chloride 107 mmol/L (96-108); Estimated Glomerular Filt Rate 31; Potassium 4.3 mmol/L (3.3-5.1); Sodium 142 mmol/L (135-145)
== END 2023-07-28 10:28 | disposition home or self-care (01) ==
LOC: HO.LAB 10:27
PROVIDERS: PCP Internal Medicine; Visit Provider Internal Medicine Nephrology
DX: I12.9 Hypertensive chronic kidney disease with stage 1 through stage 4 chronic kidney disease, or unspecified chronic kidney disease (principal); N18.32 Chronic kidney disease, stage 3b; E61.1 Iron deficiency; R80.8 Other proteinuria
CPT/HCPCS: 36415; 80051; 82565; 84520; 85025; 99212

== ENCOUNTER 2023-09-16 10:50 | Outpatient (AMB) | payer OTHER, SELFPAY ==
--- NOTE | 2023-09-16 10:58 | A.OFFVIS_ITS ---
Vital Signs 09/16/23 10:59 Height 5 ft 4 in Weight 178 lb BMI 30.6 BP 130/68 Blood Pressure Location Rt brachial Position Sitting Pulse 70 Pulse Source Pulse Oximeter Pulse Oximetry (%) 99 Oxygen Delivery Method Nasal Cannula Oxygen Flow Rate 4 Intake Visit Reasons: copd Intake Note: pt is here for follow up and states he is feeling good,using oxygen 24 hours Hair Rooting Machine Operator Required: No Allergies No Known Allergies Allergy (Verified 09/16/23 11:03) Medication List - Last Reconciled 09/16/23 by Lorin Perry MD albuterol sulfate 90 mcg/actuation 2 puffs inhalation Q4-6H PRN 30 days apixaban (Eliquis) 5 mg PO BID aspirin 81 mg PO DAILY cholecalciferol (vitamin D3) (Vitamin D3) 25 mcg PO DAILY dapagliflozin propanediol (Farxiga) 10 mg PO DAILY diltiazem HCl ER 360 mg PO DAILY hydralazine 50 mg PO TID losartan 50 mg PO DAILY omeprazole 20 mg PO DAILY torsemide 20 mg PO DAILY umeclidinium 62.5 mcg/actuation (Incruse Ellipta) 1 inh inhalation DAILY 30 days Do you need a note to return to daycare/school/sports/work: No HPI HPI copd: Details: Karri is 78 years old very pleasant Iraqi-speaking gentleman, comes in today with his who speaks Slovenian. Recently he was hospitalized at [facility] with increased congestive heart failure, He is on torsemide 20 mg daily which is the helping to get rid. of extra fluid With. That his breathing has improved He is also using O2 24 hours a day, 3 L/minute at rest and 4 L/minute with the portable cylinder. Denies any cough or expectoration also denies wheezing. He has usual shortness of breath when he walks around, but this is not any worse than before. [facility] Medical History (Updated 09/16/23 @ 11:16 by Lorin Perry MD) Respiratory failure with hypoxia Nocturnal hypoxemia Pulmonary fibrosis Pulmonary asbestosis COPD (chronic obstructive pulmonary disease) Social History Patient Tobacco Use Status: Never used Tobacco Review of Systems Const All systems reviewed & are unremarkable except as noted in HPI and below Eyes Reports no additional complaints ENT Reports nasal congestion (Mild intermittent) Card Denies irregular heart rhythm and Denies leg edema Resp Reports as per HPI GI Reports heartburn (Controlled with med) Reports no additional complaints Musc Reports no additional complaints Skin/Breast Reports system reviewed and no additional complaints, except as documented Neuro Reports no additional complaints Psych Reports no additional complaints Physical Exam Vital Signs: Last Vital Signs Pulse 70 09/16/23 10:59 BP 130/68 09/16/23 10:59 Pulse Ox 99 09/16/23 10:59 Oxygen Delivery Method Nasal Cannula 09/16/23 10:59 Oxygen Flow Rate 4 09/16/23 10:59 BMI result Body Mass Index 30.6 Const General: comfortable, no acute distress, alert and awake Orientation/consciousness: patient oriented x3 HEENT Head: Yes normal to inspection General nose exam: No nasal polyps present and No nasal discharge present Face and sinus: Yes sinuses nontender Mouth: oropharynx normal Throat: Yes posterior oropharynx normal Eyes General: appearance normal, both eyes and all related structures Neck Neck: Yes normal visual inspection, Yes no lymphadenopathy, Yes trachea midline and Yes no JVD Thyroid: Thyroid normal Chest Chest palpation & inspection: normal inspection of the chest, normal palpation of entire chest wall and no tenderness Resp Other: Percussion note is resonant, he has equal breath sounds on both sides somewhat distant with prolonged expiratory phase. NO WHEEZES OR CREPITATIONS ARE HEARD. Cardio Palpation: normal PMI Rate: regular rate Rhythm: regular rhythm Heart sounds: no gallops and no murmurs GI Palpation (GI): Soft to palpation, nontender, No hepatosplenomegaly present and no masses Auscultation: normal bowel sounds Back/Spine/Pelvis Thoracic/Lumbar Spine: thoracic and lumbar spine normal to inspection Skin General skin exam: no rashes or lesions noted Neuro General: patient oriented x3 and no focal motor deficits Cranial nerves: Yes CN's II-XII intact bilaterally Extrem General: Yes normal to inspection, Yes no clubbing, cyanosis or edema and Yes no calf tenderness Psych Appearance: grossly normal and well kempt Speech and movement: Normal speech and movement present Assessment & Plan Assessment & Plan (1) COPD (chronic obstructive pulmonary disease): Comment: MILD TO MODERTAE DEGREE OF COPD , MOSTLY WELL CONTROLLED, COMPLAINS OF MILD INTERMITTENT COUGH AND INCREASED SHORTNESS OF BREATH ON WALKING FEELS BETTER WHEN HE IS USING O2 . Code(s): J44.9 - Chronic obstructive pulmonary disease, unspecified Category: Medical Plan: CONTINUE TO USE INCRUSE ELLIPTA 1 INHALATION DAILY PROAIR 2 PUFFS Q 6 HOURS ONLY P.R.N. FOR ACUTE WHEEZING. (2) Pulmonary asbestosis: Comment: CHRONIC , MINIMAL. STABLE . Code(s): J61 - Pneumoconiosis due to asbestos and other mineral fibers Category: Medical Plan: NO SPECIFIC TREATMENT NEEDED (3) Pulmonary fibrosis: Comment: MILD , SEC TO ASBESTOSIS ,STABLE . DOES NOT NEED ANY ACTIVE MEDICATION. Code(s): J84.10 - Pulmonary fibrosis, unspecified Category: Medical Plan: NEEDS TO USE OXYGEN DESCRIBED UNDER COPD (4) Respiratory failure with hypoxia: Comment: HE HAD ONLY NOCTURNAL HYPOXEMIA BEFORE BUT NOW HE HAS HYPOXEMIA EVEN AT REST AND ON WALKING. HIS NEED FOR OXYGEN HAS INCREASED ESPECIALLY DUE TO RECENT CONGESTIVE HEART FAILURE. Code(s): J96.91 - Respiratory failure, unspecified with hypoxia Category: Medical Plan: CONTINUE TO USE O2 3 L/MINUTE AT REST AND WHEN SLEEPING, AND 4 L/MINUTE WITH THE PORTABLE CYLINDER, FOR ANY OUTDOOR ACTIVITIES. Coding Level of Care Code Est Pt Level 3 (40710) Diagnoses COPD (chronic obstructive pulmonary disease) J44.9 Pulmonary asbestosis J61 Pulmonary fibrosis J84.10 Respiratory failure with hypoxia J96.91
[2023-09-16 10:59] VITALS: BP 130/68; PULSE 70; O2SAT 99; BMI 30.6
== END 2023-09-16 11:13 | disposition home or self-care (01) ==
PROVIDERS: PCP Internal Medicine; Visit Provider Internal Medicine
DX: J44.9 Chronic obstructive pulmonary disease, unspecified (principal); J61 Pneumoconiosis due to asbestos and other mineral fibers; J84.10 Pulmonary fibrosis, unspecified; J96.91 Respiratory failure, unspecified with hypoxia
CPT/HCPCS: 99213

== ENCOUNTER → 2023-09-16 10:50 | Outpatient (BNVA) | payer OTHER, SELFPAY | PROVIDERS: PCP Internal Medicine; Visit Provider Internal Medicine | DX: J44.9 Chronic obstructive pulmonary disease, unspecified (principal); J61 Pneumoconiosis due to asbestos and other mineral fibers; J84.10 Pulmonary fibrosis, unspecified; J96.91 Respiratory failure, unspecified with hypoxia | CPT/HCPCS: 99212 ==

== ENCOUNTER 2023-10-08 09:03 | Outpatient (REF) | payer OTHER, SELFPAY ==
[2023-10-08 20:39] LABS: Anion Gap 11 (12-20); Blood Urea Nitrogen 20 mg/dL (9-16); Carbon Dioxide 24 mmol/L (22-29); Chloride 108 mmol/L (96-108); Estimated Glomerular Filt Rate 31; Potassium 4.1 mmol/L (3.3-5.1); Sodium 139 mmol/L (135-145)
== END 2023-10-08 09:04 | disposition home or self-care (01) ==
LOC: HO.LAB 09:03
PROVIDERS: PCP Internal Medicine; Visit Provider Internal Medicine Nephrology
DX: I12.9 Hypertensive chronic kidney disease with stage 1 through stage 4 chronic kidney disease, or unspecified chronic kidney disease (principal); E61.1 Iron deficiency; R80.8 Other proteinuria; N18.32 Chronic kidney disease, stage 3b
CPT/HCPCS: 36415; 80051; 82565; 84520

== ENCOUNTER 2023-10-13 10:23 | Outpatient (AMB) | payer OTHER, SELFPAY ==
--- NOTE | 2023-10-13 10:37 | HO.NEPHOV_ITS ---
Vital Signs 10/13/23 10:38 Height 5 ft 4 in Weight 177 lb 6 oz BMI 30.4 BP 142/60 H Blood Pressure Location Lt brachial Position Sitting Pulse 74 Pulse Source Pulse Oximeter Pulse Oximetry (%) 94 Oxygen Delivery Method Room Air Intake Visit Reasons: CKD/ Conf Intake Note: Compliance Attorney refusal form signed and scanned into chart. Compliance Attorney Required: Yes Compliance Attorney Services: Compliance Attorney Offered & Declined Compliance Attorney Name: Jerrica Accompanied by: Other Relationship Allergies No Known Allergies Allergy (Verified 09/16/23 11:03) HPI Comments Details: I had the privilege of seeing Karri in follow up for CKD and hypertension. He recently was admitted in the hospital for hypervolemia. He was found to be anemic and underwent upper & lower endoscopy. He is very iron deficient. He has pulmonary fibrosis. He denies DM but has hypertension for a long time. He denies neuropathy , retinopathy, ROSALIND , PAD or carotid stenosis. He is on SGLT2i. He does not take NSAID's regularly. He denies any nausea, vomiting, diarrhea, worsening SOB, edema, PND, orthopnea, hematuria, hearing deficits hepatitis or HIV. He claims to be compliant with medications. He has no sinusitis, epistaxis, photosensitivity, bone pain, sore throat , hemoptysis, skin lesions or recent antibiotic intake. [facility] Medical History (Updated 09/16/23 @ 11:16 by Lorin Perry MD) Respiratory failure with hypoxia Nocturnal hypoxemia Pulmonary fibrosis Pulmonary asbestosis COPD (chronic obstructive pulmonary disease) Social History Patient Tobacco Use Status: Never used Tobacco Physical Exam Vital Signs: Last Vital Signs Pulse 74 10/13/23 10:38 BP 142/60 H 10/13/23 10:38 Pulse Ox 94 10/13/23 10:38 Oxygen Delivery Method Room Air 10/13/23 10:38 BMI result Body Mass Index 30.4 Const General: comfortable and no acute distress Orientation/consciousness: patient oriented x3 HEENT Head: Yes normocephalic Mouth: Normal oral and palatal mucosa present Eyes EOM: EOMs intact bilaterally Neck Neck: Yes supple Resp Auscultation: diminished lung sounds Cardio Jugular venous distension: no JVD Rate: regular rate GI Palpation (GI): Soft to palpation Auscultation: normal bowel sounds General: Yes no CVA tenderness Back/Spine/Pelvis Back: no CVA tenderness Skin General skin exam: no rashes or lesions noted Neuro General: patient oriented x3 and moves all extremities Results Reviewed Nephrology Results: Hgb 7.9 g/dl (14.0-18.0) L 07/28/23 WBC 8.8 X10*3/uL (4.8-10.8) 07/28/23 Plt Count 415 X10*3/uL (160-400) H 07/28/23 Sodium 139 mmol/L (135-145) 10/08/23 Potassium 4.1 mmol/L (3.3-5.1) 10/08/23 Chloride 108 mmol/L (96-108) 10/08/23 Carbon Dioxide 24 mmol/L (22-29) 10/08/23 BUN 20 mg/dL (9-16) H 10/08/23 Creatinine 2.10 mg/dL (0.5-1.4) H 10/08/23 Calcium 9.8 mg/dL (8.4-10.2) 04/22/23 Urine Creatinine 122.66 mg/dL 04/22/23 Protein/Creatinin Ratio 0.61 (<0.2) H 04/22/23 Assessment & Plan Assessment & Plan (1) Hypertension: Code(s): I10 - Essential (primary) hypertension Category: Medical Qualifiers: Hypertension type: primary hypertension Qualified Code(s): I10 - Essential (primary) hypertension (2) CKD (chronic kidney disease) stage 3, GFR 30-59 ml/min: Code(s): N18.30 - Chronic kidney disease, stage 3 unspecified Category: Medical Qualifiers: Chronic kidney disease stage 3 subtype: stage 3b (GFR 30-44) Qualified Code(s): N18.32 - Chronic kidney disease, stage 3b Plan Renal function stable Blood pressure at goal at home On SGLT2 i; No NSAID's Needs weight loss C/W torsemide current dose Shall arrange IV iron after repeat labs No other medication changes today Labs ordered; Answered all questions Orders: Orders Ferritin Today I10 - Essential (primary) hypertension, N18.32 - Chronic kidney disease, stage 3b Electrolytes Today I10 - Essential (primary) hypertension, N18.32 - Chronic kidney disease, stage 3b Calcium Today I10 - Essential (primary) hypertension, N18.32 - Chronic kidney disease, stage 3b IRON PROFILE Today I10 - Essential (primary) hypertension, N18.32 - Chronic kidney disease, stage 3b Complete Blood Count Auto Diff Today I10 - Essential (primary) hypertension, N18.32 - Chronic kidney disease, stage 3b Creatinine Today I10 - Essential (primary) hypertension, N18.32 - Chronic kidney disease, stage 3b Blood Urea Nitrogen Today I10 - Essential (primary) hypertension, N18.32 - Chronic kidney disease, stage 3b Coding Level of Care Code Est Pt Level 4 (41730) Diagnoses Primary hypertension I10 Hypertension type: primary hypertension Stage 3b chronic kidney disease N18.32 Chronic kidney disease stage 3 subtype: stage 3b (GFR 30-44)
[2023-10-13 10:38] VITALS: BP 142/60; PULSE 74; O2SAT 94; BMI 30.4
== END 2023-10-13 10:49 | disposition home or self-care (01) ==
PROVIDERS: PCP Internal Medicine; Visit Provider Internal Medicine Nephrology
DX: I10 Essential (primary) hypertension (principal); N18.32 Chronic kidney disease, stage 3b
CPT/HCPCS: 99214

== ENCOUNTER → 2023-10-13 10:23 | Outpatient (BNVA) | payer OTHER, SELFPAY | PROVIDERS: PCP Internal Medicine; Visit Provider Internal Medicine Nephrology | DX: I12.9 Hypertensive chronic kidney disease with stage 1 through stage 4 chronic kidney disease, or unspecified chronic kidney disease (principal); N18.32 Chronic kidney disease, stage 3b | CPT/HCPCS: 99212 ==

== ENCOUNTER 2024-01-07 11:11 | Outpatient (AMB) | payer OTHER, SELFPAY ==
[2024-01-07 11:12] VITALS: BP 140/60; PULSE 74; O2SAT 92; BMI 30.9
--- NOTE | 2024-01-07 11:12 | HO.NEPHOV_ITS ---
Vital Signs 01/07/24 11:12 Height 5 ft 4 in Weight 180 lb BMI 30.9 BP 140/60 H Blood Pressure Location Lt brachial Position Sitting Pulse 74 Pulse Source Pulse Oximeter Pulse Oximetry (%) 92 Oxygen Delivery Method Room Air Intake Visit Reasons: CKD- LVM Brownfield Redevelopment Specialist Required: Yes Brownfield Redevelopment Specialist Language: Practical Nursing Teacher Services: Brownfield Redevelopment Specialist Offered & Declined ([facility] certified court interpreter services refused. Pt accompanied by friend.) Accompanied by: Other Relationship Allergies No Known Allergies Allergy (Verified 01/07/24 11:15) HPI Comments Details: I had the privilege of seeing Karri in follow up for CKD and hypertension. He has been very iron deficient. He has pulmonary fibrosis. He denies DM but has hypertension for a long time. He denies neuropathy , retinopathy, ROSALIND , PAD or carotid stenosis. He is on SGLT2i. He does not take NSAID's regularly. He denies any nausea, vomiting, diarrhea, worsening SOB, edema, PND, orthopnea, hematuria, hearing deficits hepatitis or HIV. He claims to be compliant with medications. He has no sinusitis, epistaxis, photosensitivity, bone pain, sore throat , hemoptysis, skin lesions or recent antibiotic intake. He has not hada nay blood work for sometime. [facility] Medical History (Updated 09/16/23 @ 11:16 by Lorin Perry MD) Respiratory failure with hypoxia Nocturnal hypoxemia Pulmonary fibrosis Pulmonary asbestosis COPD (chronic obstructive pulmonary disease) Social History Patient Tobacco Use Status: Never used Tobacco Review of Systems Const All systems reviewed & are unremarkable except as noted in HPI and below Physical Exam Vital Signs: Last Vital Signs Pulse 74 01/07/24 11:12 BP 146/60 H 01/07/24 11:12 Pulse Ox 92 01/07/24 11:12 Oxygen Delivery Method Room Air 01/07/24 11:12 BMI result Body Mass Index 30.9 Const General: comfortable and no acute distress Orientation/consciousness: patient oriented x3 HEENT Head: Yes normocephalic Mouth: Normal oral and palatal mucosa present Eyes EOM: EOMs intact bilaterally Neck Neck: Yes supple Resp Auscultation: clear to auscultation bilaterally Cardio Jugular venous distension: no JVD Rate: regular rate GI Palpation (GI): Soft to palpation Auscultation: normal bowel sounds General: Yes no CVA tenderness Back/Spine/Pelvis Back: no CVA tenderness Skin General skin exam: no rashes or lesions noted Neuro General: patient oriented x3 and moves all extremities Extrem General: Yes no pedal edema Results Reviewed Nephrology Results: Hgb 7.9 g/dl (14.0-18.0) L 07/28/23 WBC 8.8 X10*3/uL (4.8-10.8) 07/28/23 Plt Count 415 X10*3/uL (160-400) H 07/28/23 Sodium 139 mmol/L (135-145) 10/08/23 Potassium 4.1 mmol/L (3.3-5.1) 10/08/23 Chloride 108 mmol/L (96-108) 10/08/23 Carbon Dioxide 24 mmol/L (22-29) 10/08/23 BUN 20 mg/dL (9-16) H 10/08/23 Creatinine 2.10 mg/dL (0.5-1.4) H 10/08/23 Calcium 9.8 mg/dL (8.4-10.2) 04/22/23 Urine Creatinine 122.66 mg/dL 04/22/23 Protein/Creatinin Ratio 0.61 (<0.2) H 04/22/23 Assessment & Plan Assessment & Plan (1) CKD (chronic kidney disease) stage 3, GFR 30-59 ml/min: Code(s): N18.30 - Chronic kidney disease, stage 3 unspecified Category: Medical Qualifiers: Chronic kidney disease stage 3 subtype: stage 3b (GFR 30-44) Qualified Code(s): N18.32 - Chronic kidney disease, stage 3b (2) Iron deficiency: Code(s): E61.1 - Iron deficiency Category: Medical (3) Hypertension: Code(s): I10 - Essential (primary) hypertension Category: Medical Qualifiers: Hypertension type: primary hypertension Qualified Code(s): I10 - Essential (primary) hypertension Plan Renal function had been stable Blood pressure at goal at home Labs ordered for today and prior to next visit On SGLT2 i; No NSAID's; Needs weight loss C/W torsemide current dose Shall arrange IV iron after labs No other medication changes today Answered all questions Orders: Orders Complete Blood Count Auto Diff Today E61.1 - Iron deficiency, N18.32 - Chronic kidney disease, stage 3b Creatinine Today E61.1 - Iron deficiency, N18.32 - Chronic kidney disease, stage 3b Blood Urea Nitrogen Today E61.1 - Iron deficiency, N18.32 - Chronic kidney disease, stage 3b Electrolytes 3 Months N18.32 - Chronic kidney disease, stage 3b Electrolytes Today E61.1 - Iron deficiency, N18.32 - Chronic kidney disease, stage 3b Ferritin Today E61.1 - Iron deficiency IRON PROFILE Today E61.1 - Iron deficiency Creatinine 3 Months N18.32 - Chronic kidney disease, stage 3b Blood Urea Nitrogen 3 Months N18.32 - Chronic kidney disease, stage 3b Coding Level of Care Code Est Pt Level 4 (27935) Diagnoses Stage 3b chronic kidney disease N18.32 Chronic kidney disease stage 3 subtype: stage 3b (GFR 30-44) Iron deficiency E61.1 Primary hypertension I10 Hypertension type: primary hypertension
== END 2024-01-07 11:27 | disposition home or self-care (01) ==
PROVIDERS: PCP Internal Medicine; Visit Provider Internal Medicine Nephrology
DX: I12.9 Hypertensive chronic kidney disease with stage 1 through stage 4 chronic kidney disease, or unspecified chronic kidney disease (principal); N18.32 Chronic kidney disease, stage 3b; E61.1 Iron deficiency
CPT/HCPCS: 99214

== ENCOUNTER → 2024-01-07 11:11 | Outpatient (BNVA) | payer OTHER, SELFPAY | PROVIDERS: PCP Internal Medicine; Visit Provider Internal Medicine Nephrology | DX: I12.9 Hypertensive chronic kidney disease with stage 1 through stage 4 chronic kidney disease, or unspecified chronic kidney disease (principal); N18.32 Chronic kidney disease, stage 3b; E61.1 Iron deficiency | CPT/HCPCS: 99212 ==

== ENCOUNTER 2024-01-07 11:43 | Outpatient (REF) | payer OTHER, SELFPAY ==
[2024-01-07 12:49] LABS: MANUAL DIFF FLAG NO
[2024-01-07 12:52] LABS: Basophils Absolute Auto 0.1 X10*3/uL (0.0-0.2); Eosinophils Absolute Auto 0.4 X10*3/uL (0.0-0.4); Eosinophils Percent Auto 4.6 % (0-4); Hematocrit 35.6 % (42.0-52.0); Hemoglobin 10.3 g/dl (14.0-18.0); Imm Gran Abs Auto 0.03 X10*3/uL (0.00-0.03); Imm Gran Pct Auto 0.4 % (0.0-0.4); Lymphocytes Absolute Auto 1.6 X10*3/uL (1.2-4.9); Lymphocytes Percent Auto 20.3 % (20-40); Mean Corpuscular HGB Conc 28.9 g/dl (31.0-36.0); Mean Corpuscular Hemoglobin 20.2 pg (27.0-33.0); Mean Corpuscular Volume 69.8 fL (80.0-98.0); Mean Platelet Volume 9.2 fL (9.4-12.4); Monocytes Absolute Auto 0.7 X10*3/uL (0.1-1.2); Monocytes Percent Auto 9.6 % (2-11); Neutrophils Absolute Auto 4.9 x10*3/uL (2.0-8.3); Neutrophils Percent Auto 64.1 % (45-73); Platelet Count 294 X10*3/uL (160-400); Red Cell Distribution Width 23.8 % (11.0-16.0); White Blood Count 7.6 X10*3/uL (4.8-10.8)
[2024-01-07 13:35] LABS: Anion Gap 9 (12-20); Blood Urea Nitrogen 22 mg/dL (9-16); Carbon Dioxide 24 mmol/L (22-29); Chloride 109 mmol/L (96-108); Estimated Glomerular Filt Rate 36; Iron 80 mcg/dL (45-160); Percent Iron Saturation 29 % (15-50); Potassium 4.4 mmol/L (3.3-5.1); Sodium 138 mmol/L (135-145); Total Iron Binding Capacity 277 mcg/dL (228-428); Unsaturated Iron Binding 197 ug/dL
[2024-01-07 13:50] LABS: Ferritin 41 ng/mL (20-250)
== END 2024-01-07 11:44 | disposition home or self-care (01) ==
LOC: HO.10HDL 11:43
PROVIDERS: Visit Provider Internal Medicine Nephrology
DX: N18.32 Chronic kidney disease, stage 3b (principal); E61.1 Iron deficiency
CPT/HCPCS: 36415; 80051; 82565; 82728; 83540; 84520; 85025

== ENCOUNTER 2024-01-17 10:35 | Outpatient (AMB) | payer OTHER, SELFPAY ==
[2024-01-17 10:46] VITALS: BP 142/60; PULSE 70; O2SAT 95; BMI 30.3
--- NOTE | 2024-01-17 10:46 | A.OFFVIS_ITS ---
Vital Signs 01/17/24 10:46 Height 5 ft 4 in Weight 176 lb 5.917 oz BMI 30.3 BP 142/60 H Blood Pressure Location Lt brachial Position Sitting Pulse 70 Pulse Source Pulse Oximeter Pulse Oximetry (%) 95 Oxygen Delivery Method Room Air Intake Visit Reasons: COPD Intake Note: pt is here for follow up and states his breathing is okay, but past couple of weeks he had an issue with a cold Hat And Cap Parts Cutter Hand Required: No Allergies No Known Allergies Allergy (Verified 01/17/24 11:09) Medication List - Last Reconciled 01/17/24 by Lorin Perry MD albuterol sulfate 90 mcg/actuation 2 puffs inhalation Q4-6H PRN 30 days apixaban (Eliquis) 5 mg PO BID aspirin 81 mg PO DAILY cholecalciferol (vitamin D3) (Vitamin D3) 25 mcg PO DAILY dapagliflozin propanediol (Farxiga) 10 mg PO DAILY diltiazem HCl ER 360 mg PO DAILY hydralazine 100 mg PO TID losartan 50 mg PO DAILY omeprazole 20 mg PO DAILY torsemide 20 mg PO DAILY umeclidinium 62.5 mcg/actuation (Incruse Ellipta) 1 inh inhalation DAILY Do you need a note to return to daycare/school/sports/work: No HPI HPI COPD: Details: SANDIE, 78 YEARS OLD VERY PLEASANT, GERMAN-SPEAKING GENTLEMAN, IS HERE FOR FOLLOW-UP AFTER 4 MONTHS. HE IS BEING TREATED FOR COPD WHICH HAS REMAINED FAIRLY STABLE. USES INCRUSE ELLIPTA ONCE A DAY AND ALBUTEROL JUST NEEDED. HE DOES HAVE EXERTIONAL WELL NOCTURNAL HYPOXEMIA. SLEEPS WITH OXYGEN 3 L/MINUTE AND SLEEPS GOOD. DURING THE DAYTIME HE IS USING OXYGEN ONLY P.R.N. WHEN HE GETS SHORT OF BREATH , AND NOT ALL THE TIMES. HE IS A CASE OF CONGESTIVE HEART FAILURE WHICH ALSO HAS REMAINED FAIRLY STABLE. ACTIVITY LEVEL IS MINIMAL HE IS STAYING MOSTLY IN THE HOUSE AND, WALKS SHORT DISTANCES. HE HAD A MILD FLU-LIKE ILLNESS 2-3 WEEKS AGO WHICH IS NOW RESOLVED. [facility] Medical History Respiratory failure with hypoxia Nocturnal hypoxemia Pulmonary fibrosis Pulmonary asbestosis COPD (chronic obstructive pulmonary disease) Social History Patient Tobacco Use Status: Never used Tobacco Review of Systems Const All systems reviewed & are unremarkable except as noted in HPI and below Eyes Reports no additional complaints ENT Reports nasal congestion (Mild intermittent) Card Denies irregular heart rhythm and Denies leg edema Resp Reports as per HPI GI Reports heartburn (Controlled with med) Reports no additional complaints Musc Reports no additional complaints Skin/Breast Reports system reviewed and no additional complaints, except as documented Neuro Reports no additional complaints Psych Reports no additional complaints Physical Exam Vital Signs: Last Vital Signs Pulse 70 01/17/24 10:46 BP 142/60 H 01/17/24 10:46 Pulse Ox 95 01/17/24 10:46 Oxygen Delivery Method Room Air 01/17/24 10:46 BMI result Body Mass Index 30.3 Const General: comfortable, no acute distress, alert and awake Orientation/consciousness: patient oriented x3 HEENT Head: Yes normal to inspection General nose exam: No nasal polyps present and No nasal discharge present Face and sinus: Yes sinuses nontender Mouth: oropharynx normal Throat: Yes posterior oropharynx normal Eyes General: appearance normal, both eyes and all related structures Neck Neck: Yes normal visual inspection, Yes no lymphadenopathy, Yes trachea midline and Yes no JVD Thyroid: Thyroid normal Chest Chest palpation & inspection: normal inspection of the chest, normal palpation of entire chest wall and no tenderness Resp Other: Percussion note is resonant, he has equal breath sounds on both sides somewhat distant with prolonged expiratory phase. NO WHEEZES OR CREPITATIONS ARE HEARD. Cardio Palpation: normal PMI Rate: regular rate Rhythm: regular rhythm Heart sounds: no gallops and no murmurs GI Palpation (GI): Soft to palpation, nontender, No hepatosplenomegaly present and no masses Auscultation: normal bowel sounds Back/Spine/Pelvis Thoracic/Lumbar Spine: thoracic and lumbar spine normal to inspection Skin General skin exam: no rashes or lesions noted Neuro General: patient oriented x3 and no focal motor deficits Cranial nerves: Yes CN's II-XII intact bilaterally Extrem General: Yes normal to inspection, Yes no clubbing, cyanosis or edema and Yes no calf tenderness Psych Appearance: grossly normal and well kempt Speech and movement: Normal speech and movement present Assessment & Plan Assessment & Plan (1) COPD (chronic obstructive pulmonary disease): Comment: MILD TO MODERTAE DEGREE OF COPD , MOSTLY WELL CONTROLLED, COMPLAINS OF MILD INTERMITTENT COUGH AND INCREASED SHORTNESS OF BREATH ON WALKING FEELS BETTER WHEN HE IS USING O2 . LATELY HE IS NOT USING OXYGEN ALL THE TIMES AND USES ONLY P.R.N. IF HE GETS SHORT OF BREATH, DURING THE DAYTIME Code(s): J44.9 - Chronic obstructive pulmonary disease, unspecified Category: Medical Plan: CONTINUE INCRUSE ELLIPTA 1 INHALATION DAILY ALBUTEROL HFA 2 PUFFS Q 6 HOURS P.R.N. (2) Pulmonary asbestosis: Comment: CHRONIC , MINIMAL. STABLE . Code(s): J61 - Pneumoconiosis due to asbestos and other mineral fibers Category: Medical Plan: NEW ACTIVE TREATMENT NEEDED FOR THIS (3) Nocturnal hypoxemia: Comment: DUE TO HIS COPD/CONGESTIVE HEART FAILURE HE DOES HAVE HISTORY OF NOCTURNAL HYPOXEMIA. Code(s): G47.34 - Idiopathic sleep related nonobstructive alveolar hypoventilation Category: Medical Plan: CONTINUE USING O2 3 L/MINUTE AT NIGHT (4) Respiratory failure with hypoxia: Comment: PATIENT DOES HAVE NOCTURNAL HYPOXEMIA WELL DAYTIME EXERTIONAL HYPOXEMIA. THE DEGREE OF HYPOXEMIA VARIES WITH THE LEVEL OF HIS CONGESTIVE HEART FAILURE. NOW THAT COPD AND CONGESTIVE HEART FAILURE OR BOTH WELL CONTROLLED, HE IS NOT NEEDING TO USE OXYGEN DURING THE DAYTIME. Code(s): J96.91 - Respiratory failure, unspecified with hypoxia Category: Medical Plan: ADVISED TO USE O2 3 L/MINUTE AT REST AND 4 L/MINUTE WITH THE PORTABLE UNIT IN CASE HE GETS SHORT OF BREATH DURING THE DAYTIME Coding Level of Care Code Est Pt Level 3 (63853) Diagnoses COPD (chronic obstructive pulmonary disease) J44.9 Pulmonary asbestosis J61 Nocturnal hypoxemia G47.34 Respiratory failure with hypoxia J96.91
== END 2024-01-17 11:08 | disposition home or self-care (01) ==
PROVIDERS: PCP Internal Medicine; Visit Provider Internal Medicine
DX: J44.9 Chronic obstructive pulmonary disease, unspecified (principal); J61 Pneumoconiosis due to asbestos and other mineral fibers; G47.34 Idiopathic sleep related nonobstructive alveolar hypoventilation; J96.91 Respiratory failure, unspecified with hypoxia
CPT/HCPCS: 99213

== ENCOUNTER → 2024-01-17 10:35 | Outpatient (BNVA) | payer OTHER, SELFPAY | PROVIDERS: PCP Internal Medicine; Visit Provider Internal Medicine | DX: J44.9 Chronic obstructive pulmonary disease, unspecified (principal); J61 Pneumoconiosis due to asbestos and other mineral fibers; J96.91 Respiratory failure, unspecified with hypoxia; G47.34 Idiopathic sleep related nonobstructive alveolar hypoventilation | CPT/HCPCS: 99212 ==

== ENCOUNTER 2024-03-20 09:21 | Outpatient (REF) | payer OTHER, SELFPAY ==
[2024-03-20 09:47] LABS: MANUAL DIFF FLAG NO
[2024-03-20 10:12] LABS: Basophils Absolute Auto 0.1 X10*3/uL (0.0-0.2); Eosinophils Absolute Auto 0.6 X10*3/uL (0.0-0.4); Eosinophils Percent Auto 7.6 % (0-4); Hematocrit 38.8 % (42.0-52.0); Hemoglobin 11.7 g/dl (14.0-18.0); Imm Gran Abs Auto 0.02 X10*3/uL (0.00-0.03); Imm Gran Pct Auto 0.2 % (0.0-0.4); Lymphocytes Percent Auto 24.6 % (20-40); Mean Corpuscular HGB Conc 30.2 g/dl (31.0-36.0); Mean Corpuscular Hemoglobin 22.4 pg (27.0-33.0); Mean Corpuscular Volume 74.3 fL (80.0-98.0); Mean Platelet Volume 9.8 fL (9.4-12.4); Monocytes Absolute Auto 0.9 X10*3/uL (0.1-1.2); Monocytes Percent Auto 11.1 % (2-11); Neutrophils Absolute Auto 4.6 x10*3/uL (2.0-8.3); Neutrophils Percent Auto 55.5 % (45-73); Platelet Count 267 X10*3/uL (160-400); Red Blood Count 5.22 X10*6/uL (4.60-5.80); Red Cell Distribution Width 19.4 % (11.0-16.0); White Blood Count 8.2 X10*3/uL (4.8-10.8)
[2024-03-20 10:51] LABS: Anion Gap 9 (12-20); Blood Urea Nitrogen 22 mg/dL (9-16); Calcium 9.7 mg/dL (8.4-10.2); Carbon Dioxide 25 mmol/L (22-29); Chloride 110 mmol/L (96-108); Estimated Glomerular Filt Rate 34; Iron 26 mcg/dL (45-160); Percent Iron Saturation 10 % (15-50); Sodium 140 mmol/L (135-145); Total Iron Binding Capacity 259 mcg/dL (228-428); Unsaturated Iron Binding 233 ug/dL
[2024-03-20 11:05] LABS: Ferritin 38 ng/mL (20-250)
== END 2024-03-20 09:22 | disposition home or self-care (01) ==
LOC: HO.LAB 09:21
PROVIDERS: PCP Internal Medicine; Visit Provider Internal Medicine Nephrology
DX: I12.9 Hypertensive chronic kidney disease with stage 1 through stage 4 chronic kidney disease, or unspecified chronic kidney disease (principal); N18.32 Chronic kidney disease, stage 3b
CPT/HCPCS: 36415; 80051; 82310; 82565; 82728; 83540; 84520; 85025

== ENCOUNTER 2024-03-27 10:34 | Outpatient (AMB) | payer OTHER, SELFPAY ==
--- NOTE | 2024-03-27 10:37 | HO.NEPHOV ---
Vital Signs 03/27/24 10:40 Height 5 ft 4 in Weight 173 lb 8 oz BMI 29.8 BP 120/70 Blood Pressure Location Rt brachial Position Sitting Pulse 70 Pulse Source Pulse Oximeter Pulse Oximetry (%) 95 Oxygen Delivery Method Room Air Intake Visit Reasons: 3mon follow up/ Conf Mold Repairer Required: Yes Mold Repairer Language: [place] Seamer Services: Mold Repairer Offered & Declined ([facility] supervisor boat outfitting services refused ) Accompanied by: Other Relationship Allergies No Known Allergies Allergy (Verified 03/27/24 10:37) HPI Comments Details: Karri was seen in follow up for CKD and hypertension. He has been very iron deficient. He has pulmonary fibrosis. He denies DM but has hypertension for a long time. He denies neuropathy , retinopathy, ROSALIND , PAD or carotid stenosis. He is on SGLT2i. He does not take NSAID's regularly. He denies any nausea, vomiting, diarrhea, worsening SOB, edema, PND, orthopnea, hematuria, hearing deficits hepatitis or HIV. He claims to be compliant with medications. He has no sinusitis, epistaxis, photosensitivity, bone pain, sore throat , hemoptysis, skin lesions or recent antibiotic intake. [facility] Medical History Respiratory failure with hypoxia Nocturnal hypoxemia Pulmonary fibrosis Pulmonary asbestosis COPD (chronic obstructive pulmonary disease) Social History Patient Tobacco Use Status: Never used Tobacco Review of Systems Const All systems reviewed & are unremarkable except as noted in HPI and below Physical Exam Vital Signs: Last Vital Signs Pulse 70 03/27/24 10:40 BP 150/70 H 03/27/24 10:40 Pulse Ox 95 03/27/24 10:40 Oxygen Delivery Method Room Air 03/27/24 10:40 BMI result Body Mass Index 29.8 Const General: comfortable and no acute distress Orientation/consciousness: patient oriented x3 HEENT Head: Yes normocephalic Mouth: Normal oral and palatal mucosa present Eyes EOM: EOMs intact bilaterally Neck Neck: Yes supple Resp Auscultation: clear to auscultation bilaterally Cardio Jugular venous distension: no JVD Rate: regular rate GI Palpation (GI): Soft to palpation Auscultation: normal bowel sounds General: Yes no CVA tenderness Back/Spine/Pelvis Back: no CVA tenderness Skin General skin exam: no rashes or lesions noted Neuro General: patient oriented x3 and moves all extremities Extrem General: Yes no pedal edema Results Reviewed Nephrology Results: Hgb 11.7 g/dl (14.0-18.0) L 03/20/24 WBC 8.2 X10*3/uL (4.8-10.8) 03/20/24 Plt Count 267 X10*3/uL (160-400) 03/20/24 Sodium 140 mmol/L (135-145) 03/20/24 Potassium 4.0 mmol/L (3.3-5.1) 03/20/24 Chloride 110 mmol/L (96-108) H 03/20/24 Carbon Dioxide 25 mmol/L (22-29) 03/20/24 BUN 22 mg/dL (9-16) H 03/20/24 Creatinine 1.90 mg/dL (0.5-1.4) H 03/20/24 Calcium 9.7 mg/dL (8.4-10.2) 03/20/24 Assessment & Plan Assessment & Plan (1) Iron deficiency: Code(s): E61.1 - Iron deficiency Category: Medical (2) Hypertension: Code(s): I10 - Essential (primary) hypertension Category: Medical Qualifiers: Hypertension type: primary hypertension Qualified Code(s): I10 - Essential (primary) hypertension (3) CKD (chronic kidney disease) stage 3, GFR 30-59 ml/min: Code(s): N18.30 - Chronic kidney disease, stage 3 unspecified Category: Medical Qualifiers: Chronic kidney disease stage 3 subtype: stage 3b (GFR 30-44) Qualified Code(s): N18.32 - Chronic kidney disease, stage 3b Plan Renal function had been stable Blood pressure at goal at home Labs ordered for today and prior to next visit On SGLT2 i; No NSAID's; Needs weight loss C/W torsemide current dose Started PO Ferrous sulphate 325 mg bid No other medication changes today Labs/FU 3 M Orders: Orders Creatinine 3 Months E61.1 - Iron deficiency, I10 - Essential (primary) hypertension, N18.32 - Chronic kidney disease, stage 3b Blood Urea Nitrogen 3 Months E61.1 - Iron deficiency, I10 - Essential (primary) hypertension, N18.32 - Chronic kidney disease, stage 3b Electrolytes 3 Months E61.1 - Iron deficiency, I10 - Essential (primary) hypertension, N18.32 - Chronic kidney disease, stage 3b Complete Blood Count Auto Diff 3 Months E61.1 - Iron deficiency, I10 - Essential (primary) hypertension, N18.32 - Chronic kidney disease, stage 3b Medications: New ferrous sulfate 325 mg PO BID 90 days 180 tabs 3RF Coding Level of Care Code Est Pt Level 4 (37095) Diagnoses Iron deficiency E61.1 Primary hypertension I10 Hypertension type: primary hypertension Stage 3b chronic kidney disease N18.32 Chronic kidney disease stage 3 subtype: stage 3b (GFR 30-44)
[2024-03-27 10:40] VITALS: BP 120/70; PULSE 70; O2SAT 95; BMI 29.8
== END 2024-03-27 11:01 | disposition home or self-care (01) ==
PROVIDERS: PCP Internal Medicine; Visit Provider Internal Medicine Nephrology
DX: E61.1 Iron deficiency (principal); I12.9 Hypertensive chronic kidney disease with stage 1 through stage 4 chronic kidney disease, or unspecified chronic kidney disease; N18.32 Chronic kidney disease, stage 3b
CPT/HCPCS: 99214

== ENCOUNTER → 2024-03-27 10:34 | Outpatient (BNVA) | payer OTHER, SELFPAY | PROVIDERS: PCP Internal Medicine; Visit Provider Internal Medicine Nephrology | DX: I12.9 Hypertensive chronic kidney disease with stage 1 through stage 4 chronic kidney disease, or unspecified chronic kidney disease (principal); N18.32 Chronic kidney disease, stage 3b; E61.1 Iron deficiency | CPT/HCPCS: 99212 ==

== ENCOUNTER 2024-05-17 09:12 | Outpatient (REF) | payer OTHER, SELFPAY ==
[2024-05-17 10:13] LABS: Anion Gap 10 (12-20); Blood Urea Nitrogen 30 mg/dL (9-16); Carbon Dioxide 27 mmol/L (22-29); Chloride 106 mmol/L (96-108); Estimated Glomerular Filt Rate 32; Potassium 3.9 mmol/L (3.3-5.1); Sodium 139 mmol/L (135-145)
--- OUTSIDE RECORDS SUMMARY | 2024-05-17 10:13 | XMS_ITS | Clinical Summary ---
Author Organization [facility] Address [address] [place] [address] Phone Care Team Providers Care Art Therapy Certified Supervisor Name Role Phone Gallo Flores MD Primary Care Provider [phone] Allergies No known active allergies Medications fluticasone (FLONASE) 50 MCG/ACT nasal spray Administer 1 spray into each nostril 1 (one) time each day Active omeprazole (PriLOSEC) [address] capsule Take 1 capsule by mouth 1 (one) time each day 1 Active Ventolin HFA 108 (90 Base) MCG/ACT inhaler 1 Active Wixela Inhub 250-50 MCG/DOSE diskus inhaler 1 Active Eliquis 5 MG tablet TAKE 1 TABLET BY MOUTH TWO TIMES A DAY 2 Active torsemide (DEMADEX) 20 MG tablet Take 1 tablet (20 mg total) by mouth 1 (one) time each day 30 tablet 3 2 Active losartan (COZAAR) 50 MG tablet Take 50 mg by mouth 1 (one) time each day Active Farxiga 10 MG tablet Take 10 mg by mouth 1 (one) time each day 2 Active hydrALAZINE 50 MG tablet Take 1 tablet by mouth in the morning and 1 tablet in the evening and 1 tablet before bedtime. 2 Active D3-1000 25 MCG (1000 UT) capsule Take 1 capsule by mouth 1 (one) time each day 3 Active Incruse Ellipta 62.5 MCG/ACT aerosol powder 3 Active Aspirin Low Dose 81 MG EC tablet Take 1 tablet by mouth 1 (one) time each day 3 Active dilTIAZem CD (CARDIZEM CD) 360 MG 24 hr capsule TAKE 1 CAPSULE BY MOUTH DAILY. 28 capsule Active Active Problems Problem Noted Date Diagnosed Date Benign hypertensive renal disease 06/07/2020 Stage 3a chronic kidney disease 06/07/2020 Hypertension 06/07/2020 Family History Medical History Relation Comments Heart disease Mother Hypertension Mother Diabetes Sibling 1 Brother Hypertension Sibling 2 Brother Cancer Sibling 3 Brother Relation Status Comments Father Mother Sibling 1 Sibling 2 Sibling 3 Social History Tobacco Use Types Packs/Day Years Used Date Smoking Tobacco: Former Smokeless Tobacco: Never Tobacco Cessation:Counseling Given: Not Answered Comments:Smoking History Info:Every day Sex and Gender Information Value Date Recorded Sex Assigned at Not on file Legal Sex Male 5:06 PM EST Gender Identity Not on file Sexual Orientation Not on file Last Filed Vital Signs Vital Sign Reading Time Taken Comments Blood Pressure 122/70 10/14/2022 2:52 PM EDT Pulse 71 06/10/2022 2:46 PM EDT Temperature - - Respiratory Rate - - Oxygen Saturation 97% 07/23/2021 1:55 PM EDT Inhaled Oxygen Concentration - - Weight 85.9 kg (189 lb 6.4 oz) 10/14/2022 2:52 P M EDT Height 165.1 cm (5' 5 ) 11/19/2021 3:31 PM EDT Body Mass Index 31.52 11/19/2021 3:31 PM EDT Plan of Treatment Health Maintenance Due Date Last Done Comments Pneumococcal Vaccine: 65+ Ye ars (1 of 2 - PCV) 1951 Influenza Vaccine (#1) 2023 Hepatitis B Vaccine Aged Out No longe r eligible based on patient's age to complete this topic Insurance [address] [place] [address] [facility] ([id number]) [facility] ([id number]) Care Teams Art Therapy Certified Supervisor Relationship Specialty Start Date End Date Gallo Flores MD PCP - General 04/01/20
--- OUTSIDE RECORDS SUMMARY | 2024-05-17 10:13 | XMS_ITS | Clinical Summary ---
Author Organization [employer] Address [address] [place] [address] Care Team Providers Care Pulp Beater Name Role Phone Gallo Flores MD Primary Care Provider [phone] Allergies No known active allergies Medications dilTIAZem CD (Cardizem CD) 360 MG 24 hr capsule Take 360 mg by mouth. 2 Active hydrALAZINE (Apresoline) 50 MG tablet Take 1 tablet by mouth. 2 Active torsemide (Demadex) 20 MG tablet Take 2 tablets by mouth daily alternating with 1 tablet by mouth daily 2 Active aspirin (Nicholas Low Dose) 81 MG EC tabletIndication s:Essential hypertension Take 1 tablet (81 mg) by mouth in the morning. 30 tablet 11 4 Active cholecalciferol (Vitamin D-3) 25 MCG (1000 UT) capsule Take 1 capsule (25 mcg) by mouth in the morning. 30 capsule 11 4 Active Eliquis 5 MG tablet Take 1 tablet by mouth 2 times daily. 4 Active Farxiga 10 MG Take 1 tablet by mouth Once per day. 2 Active losartan (Cozaar) 100 MG tablet Take 1 tablet by mouth Once per day. 3 Active Incruse Ellipta 62.5 MCG/ACT aerosol powder Inhale 1 puff 1 (one) time each day at the same time. 3 Active ferrous sulfate 325 (65 Fe) MG EC tablet Take 1 tablet by mouth 3 times daily. 4 Active omeprazole (PriLOSEC) [address] capsule TAKE 1 CAPSULE BY MOUTH BEFORE A MEAL 30 capsule 11 Active Active Problems Problem Noted Date Diagnosed Date Class 1 obesity 09/09/2023 Heart failure with preserved ejection fraction 0 09/09/2023 Chronic hypoxic respiratory failure 07/25/2023 Pulmonary hypertension 07/25/2023 Vitamin D deficiency 07/25/2023 Essential (primary) hypertension 07/25/2023 Gastroesophageal reflux disease without esophagi tis 07/25/2023 ILD (interstitial lung disease) 07/25/2023 Microcytic anemia 07/25/2023 Anemia due to blood loss 07/21/2023 Paroxysmal atrial flutter 07/21/2023 Pulmonary fibrosis 07/21/2023 Benign hypertensive heart an d CKD, 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), w CHF 05/20/2023 Cardiomyopathy 06/29/2022 COPD without exacerbation 06/29/2022 Heart failure 07/04/2021 Proteinuria 06/18/2021 Chronic obstructive lung disease 10/29/2020 Benign hypertensive renal disease 06/07/2020 Alkaline phosphatase raised 02/19/2016 CKD (chronic kidney disease) stage 3, GFR 30-59 ml/min 02/17/2016 Abdominal pain 08/01/2012 Hypertension 06/09/2011 Chest pain 06/09/2011 Noninfectious gastroenteritis 06/09/2011 Encounters Date Type Department Care Team Description 03/20/2024 Orders Only GENERIC EXTERNAL DATA DEPARTMENT Provider, Generic External Data from Last 3 Months Immunizations Name Administration Dates Next Due Influenza High-dose Quadriva lent Preservative Free 01/18/2023,01/12/2022,01/06/2020 Influenza injectable quadriv alent IIV4 with preservative 01/27/2019,05/13/2017 Influenza injectable quadriv alent preservative free 02/21/2021 Influenza, High Dose Seasona l, Preservative Free 12/30/2023,12/06/2017,12/09/2015 Influenza, IIV3, injectable 02/21/2021,1 ,01/27/2019,12/06,05/13/2017,12/09/2015,12/18/2013 ,01/18/2013 Influenza, Split (incl. erinn fied surface antigen) 11/19/2011 Pfizer Covid-19 Vaccine 12+ 12/30/2023 Pneumococcal Conjugate PCV 13 05/18/2016 Pneumococcal Polysaccharide PPSV23 01/27/2019 Tdap 05/18/2016 Zoster, live 05/18/2016 Social History Tobacco Use Types Packs/Day Years Used Date Smoking Tobacco: Former Cigarettes 0.5 50 1 962 - 2012 Smokeless Tobacco: Never Tobacco Cessation:Counseling Given: Not Answered Depression Answer Date Recorded Patient Health Questionnaire-9 Score 0 06/29/2022 Housing Stability Answer Date Recorded What is your housing situation today? I do not have housing (Staying with others, in a hotel, in a intermediate, living outside on the street, on a beach, in a car, or in a park 07/29/[address] you li ve. Do you have problems with any of the following? None of the above 07/29/2023 Food Insecurity Answer Date Recorded Within the past 12 months, y ou worried that your food would run out before you got money to buy more: Never True 07/29/2023 Within the past 12 months,th e food you bought just didn't last and you didn't have enough money to get more: Never True 11/2023 Transportation Answer Date Recorded In the past 12 months, has l ack of transportation kept you from medical appts, meetings, work or from getting things needed for daily living? Yes, it has kept me from medical appointments or getting medications. 07/29/2023 Utilities Answer Date Recorded In the past 12 months, has t he electric, gas, oil or water company threatened to shut off services in your home? No 07/29/2023 Depression Answer Date Recorded Patient Health Questionnaire-2 Score 0 06/29/2022 Sex and Gender Information Value Date Recorded Sex Assigned at Male 01/19/2022 10:16 AM EDT Legal Sex Male 10:16 AM EDT Gender Identity Male 01/19/2022 10:16 AM EDT Sexual Orientation Choose not to disclose 2021 10:16 AM EDT Last Filed Vital Signs Vital Sign Reading Time Taken Comments Blood Pressure 166/73 12/30/2023 3:59 PM EDT Pulse 76 12/30/2023 3:59 PM EDT Temperature 36.3 ??C (97.4 ??F) 12/30/2023 3:59 PM ED T Respiratory Rate 20 12/30/2023 3:59 PM EDT Oxygen Saturation 94% 12/30/2023 3:59 PM EDT Inhaled Oxygen Concentration - - Weight 80.3 kg (177 lb) 12/30/2023 3:59 PM EDT Height 160 cm (5' 3 ) 12/30/2023 3:59 PM EDT Body Mass Index 31.35 12/30/2023 3:59 PM EDT Plan of Treatment Health Maintenance Due Date Last Done Comments Lipid Panel 1944 Alcohol/Substance Use Screening 1956 Hepatitis C Screening 1962 Lung Cancer Screening 1994 Zoster Vaccines (2 of 3) 07/13/2016 05/18/2016 RSV Patients and Patients Aged 60 years or older (1 - 1-dose 75+ series) 09/11/2019 Depression Screening 06/30/2023 06/29/2022, 06/30/19 23 SDOH Screening 07/28/2024 07/29/2023 Tobacco Screening 12/29/2024 12/30/2023 DTaP/Tdap/Td Vaccines (2 - Td or Tdap) 05/18/2026 05/18/2016 Pneumococcal Vaccine: 50+ Years Completed 01/27/2019, 05/18/2016 COVID-19 Vaccine Completed 12/30/2023, 01/2021, 05/03/2020 Influenza Vaccine Completed 12/30/2023, , 01/12/2022, Additional history exists HIB Vaccines Aged Out No longer eligi ble based on patient's age to complete this topic HPV Vaccines Aged Out No longer eligi ble based on patient's age to complete this topic Hepatitis A Vaccines Aged Out No long er eligible based on patient's age to complete this topic Hepatitis B Vaccines Aged Out No long er eligible based on patient's age to complete this topic IPV Vaccines Aged Out No longer eligi ble based on patient's age to complete this topic Meningococcal Vaccine Aged Out No alonso jacklyn eligible based on patient's age to complete this topic RSV under 20 months Aged Out No longe r eligible based on patient's age to complete this topic Rotavirus Vaccines Aged Out No longer eligible based on patient's age to complete this topic Procedures Procedure Name Priority Date/Time Associated Diagnosis Comments FERRITIN Routine 03/20/2024 9:43 AM EST IRON AND TOTAL IRON BINDING CAPACITY Routine 03/20/2024 9:43 AM EST CALCIUM Routine 03/20/2024 9:43 AM EST CREATININE, SERUM Routine 03/20/2024 9:4 3 AM EST UREA NITROGEN (BUN) Routine 03/20/2024 9 :43 AM EST ELECTROLYTE PANEL Routine 03/20/2024 9:4 3 AM EST CBC WITH AUTO DIFFERENTIAL Routine 03/20/2024 9:43 AM EST from Last 3 Months Results * (ABNORMAL) Creatinine, Serum (03/20/2024 9:43 AM EST) Creatinine, Serum 1.90(H) 0.5 - 1.4 mg/dL [facility] Estimated Glomerular Filt Rate 34 [facility] Comment:Chronic Kidney Disea se: Estimated GFR < 60 mL/min/1.62p5Uslymq Kidney Disease: Estimated GFR < 15 mL/min/1.73m2 03/20/2024 9:43 AM EST 03/20/2024 9:46 AM EST us Generic External Data Provider LAB BLOOD ORDERAB LES Final Result [facility] [address] [place] [phone] * (ABNORMAL) CBC auto differential (03/20/2024 9:43 AM EST) White Blood Count 8.2 4.8 - 10.8 X10*3/uL [facility] Red Blood Count 5.22 4.60 - 5.80 X10*6/uL [facility] Hemoglobin 11.7(L) 14.0 - 18.0 g/dl [facility] Hematocrit 38.8(L) 42.0 - 52.0 % [facility] Mean Corpuscular Volume 74.3(L) 80.0 - 98.0 fL [facility] Mean Corpuscular Hemoglobin 22.4(L) 27.0 - 33.0 pg [facility] Mean Corpuscular HGB Conc 30.2(L) 31.0 - 36.0 g/dl [facility] Red Cell Distribution Width 19.4(H) 11.0 - 16.0 % [facility] Platelet Count 267 160 - 400 X10*3/uL [facility] Mean Platelet Volume 9.8 9.4 - 12.4 fL [facility] Neutrophils Percent Auto 55.5 45 - 73 % [facility] Imm Gran Pct Auto 0.2 0.0 - 0.4 % [facility] Lymphocytes Percent Auto 24.6 20 - 40 % [facility] Monocytes Percent Auto 11.1(H) 2 - 11 % [facility] Eosinophils Percent Auto 7.6(H) 0 - 4 % [facility] Basophils Percent Auto 1.0 0 - 2 % [facility] NRBC Pct Auto 0.0 0.0 - 0.2 /100WBC [facility] Neutrophils Absolute Auto 4.6 2.0 - 8.3 x10*3/uL [facility] Imm Gran Abs Auto 0.02 0.00 - 0.03 X10*3/uL [facility] Lymphocytes Absolute Auto 2.0 1.2 - 4.9 X10*3/uL [facility] Monocytes Absolute Auto 0.9 0.1 - 1.2 X10*3/uL [facility] Eosinophils Absolute Auto 0.6(H) 0.0 - 0.4 X10*3/uL [facility] Basophils Absolute Auto 0.1 0.0 - 0.2 X10*3/uL [facility] NRBC Abs Auto 0.000 0.0 - 0.012 X10*3/uL [facility] 03/20/2024 9:43 AM EST 03/20/2024 9:46 AM EST us Generic External Data Provider LAB BLOOD ORDERAB LES Final Result Performing Organization Address [facility] de Phone Number [facility] [address] [place] [phone] * (ABNORMAL) Iron And Total Iron Binding Capacity (03/20/2024 9:43 AM EST) Iron 26(L) 45 - 160 mcg/dL [facility] Total Iron Binding Capacity 259 228 - 428 mcg/dL [facility] Percent Iron Saturation 10(L) 15 - 50 % [facility] Unsaturated Iron Binding 233 ug/dL [facility] 03/20/2024 9:43 AM EST 03/20/2024 9:46 AM EST us Generic External Data Provider LAB BLOOD ORDERAB LES Final Result Performing Organization Address [facility] de Phone Number [facility] [address] [place] [phone] * (ABNORMAL) BUN (Blood Urea Nitrogen) (03/20/2024 9:43 AM EST) Urea Nitrogen (BUN) 22(H) 9 - 16 mg/dL [facility] 03/20/2024 9:43 AM EST 03/20/2024 9:46 AM EST us Generic External Data Provider LAB BLOOD ORDERAB LES Final Result Performing Organization Address [facility] Co de Phone Number [facility] [address] [place] [phone] * Ferritin (03/20/2024 9:43 AM EST) Ferritin 38 20 - 250 ng/mL [facility] 03/20/2024 9:43 AM EST 03/20/2024 9:46 AM EST us Generic External Data Provider LAB BLOOD ORDERAB LES Final Result Performing Organization Address [facility]/ZIP Co de Phone Number [facility] [address] [place] [phone] * Calcium (03/20/2024 9:43 AM EST) Calcium 9.7 8.4 - 10.2 mg/dL [facility] 03/20/2024 9:43 AM EST 03/20/2024 9:46 AM EST Generic External Data Provider LAB BLOOD ORDERAB LES Final Result Performing Organization Address [facility] de Phone Number [facility] [address] [place] [phone] * (ABNORMAL) Electrolyte Panel (03/20/2024 9:43 AM EST) Sodium 140 135 - 145 mmol/L [facility] Potassium 4.0 3.3 - 5.1 mmol/L [facility] Chloride 110(H) 96 - 108 mmol/L [facility] Carbon Dioxide 25 22 - 29 mmol/L [facility] Anion Gap 9(L) 12 - 20 [facility] 03/20/2024 9:43 AM EST 03/20/2024 9:46 AM EST Generic External Data Provider LAB BLOOD ORDERAB LES Final Result Performing Organization Address [facility] Co de Phone Number [facility] [address] [place] [phone] from Last [address] [place] [phone] [facility] Care Teams Pulp Beater Relationship Specialty Start Date End Date Gallo Flores MD [address] [place] [phone] PCP - General Internal Medicine 06/30/11
--- OUTSIDE RECORDS SUMMARY | 2024-05-17 10:13 | XMS_ITS | Encounter Summary ---
Author Organization [employer] Address [address] [place] [address] Care Team Providers Care Vest Maker Name Role Phone Gallo Flores MD Primary Care Provider [phone] Encounter Details Date Type Department Care Team ([facility] st Contact Info) Description 12/01/2023 Abstract [facility] [address] [place] [address] Gallo Flores MD [address] [place], [place] [phone] Social History Tobacco Use Types Packs/Day Years Used Date Smoking Tobacco: Former Cigarettes 0.5 50 1 962 - 2011 Smokeless Tobacco: Never Depression Answer Date Recorded Patient Health Questionnaire-9 Score 0 06/29/2022 Housing Stability Answer Date Recorded What is your housing situation today? I do not have housing (Staying with others, in a hotel, in a detention, living outside on the street, on a [...] not to disclose 2021 10:16 AM EDT documented as of this encounter Plan of Treatment Not on file documented as of this encounter Visit Diagnoses Not on filedocumented in this encounter Additional Health Concerns Assessment Noted Time PHQ-9 Depression Total Score: 0 06/30/19 23 2:07 PM EDT documented as of this encounter Care Teams Vest Maker Relationship Specialty Start Date End Date Gallo Flores MD [address] [place] [phone] PCP - General Internal Medicine 06/30/11 documented as of this encounter
--- OUTSIDE RECORDS SUMMARY | 2024-05-17 10:13 | XMS_ITS | Encounter Summary ---
Author Organization [employer] Address [address] [place] [address] Care Team Providers Care Distribution Supervisor Name Role Phone Gallo Flores MD Primary Care Provider [phone] Encounter Details Date Type Department Care Team (Late st Contact Info) Description 07/27/2023 Orders Only [facility] [address] [place] [address] ProviderSangeeta MD Social History Tobacco Use Types Packs/Day Years Used Date Smoking Tobacco: Former Cigarettes 0.5 50 1 962 - 2011 Smokeless Tobacco: Never Depression Answer Date Recorded Patient Health Questionnaire-9 Score 0 06/29/2022 Housing Stability Answer Date Recorded What is your housing situation today? I do not have housing (Staying with others, in a hotel, in a chcf, living outside on the street, on a [...] on file documented as of this encounter Procedures Procedure Name Priority Date/Time Associated Diagnosis Comments EGD Routine 07/26/2023 10:42 AM EDT documented in this encounter Results * EGD (07/26/2023 10:42 AM EDT) Anatomical Region Laterality Modality Endoscopy us Historical Provider ENDOSCOPY PROCEDURE ORDER TOMER Final Result documented in this encounter Visit Diagnoses Not on filedocumented in this encounter Additional Health Concerns Assessment Noted Time PHQ-9 Depression Total Score: 0 06/30/19 23 2:07 PM EDT documented as of this encounter Care Teams Distribution Supervisor Relationship Specialty Start Date End Date Gallo Flores MD [address] [place] [phone] PCP - General Internal Medicine 06/30/11 documented as of this encounter
--- OUTSIDE RECORDS SUMMARY | 2024-05-17 10:13 | XMS_ITS | Encounter Summary ---
Author Organization [employer] Address [address] [facility] 7t [place] [address] Care Team Providers Care Senior Drafter Name Role Phone Gallo Flores MD Primary Care Provider [phone] Reason for Visit * Reason Onset Date Comments Error 07/29/2023 Encounter Details Date Type Department Care Team (Late st Contact Info) Description 07/29/2023 Telephone [facility] MEDICINE [address] [place] [address] Gallo Flores MD [address] [place], [place] [phone] Error Social History Tobacco Use Types Packs/Day Years Used Date Smoking Tobacco: Former Cigarettes 0.5 50 1 962 - 2012 Smokeless Tobacco: Never Depression Answer Date Recorded Patient Health Questionnaire-9 Score 0 06/29/2022 Housing Stability Answer Date Recorded What is your housing situation today? I do not have housing (Staying with others, in a hotel, in a skilled nursing, living outside on the street, on a [...] documented as of this encounter Care Teams Senior Drafter Relationship Specialty Start Date End Date Gallo Flores MD [address] [place] [id number] PCP - General Internal Medicine 06/30/11 documented as of this encounter
== END 2024-05-17 09:13 | disposition home or self-care (01) ==
LOC: HO.LAB 09:12
PROVIDERS: Visit Provider Internal Medicine Nephrology
DX: I12.9 Hypertensive chronic kidney disease with stage 1 through stage 4 chronic kidney disease, or unspecified chronic kidney disease (principal); N18.30 Chronic kidney disease, stage 3 unspecified
CPT/HCPCS: 36415; 80051; 82565; 84520

== ENCOUNTER 2024-06-23 09:54 | Outpatient (AMB) | payer OTHER, SELFPAY ==
--- NOTE | 2024-06-23 10:00 | HO.NEPHOV_ITS ---
Vital Signs 06/23/24 10:05 Height 5 ft 4 in Weight 171 lb 4 oz BMI 29.4 BP 120/60 Blood Pressure Location Lt brachial Position Sitting Pulse 70 Pulse Source Pulse Oximeter Pulse Oximetry (%) 95 Oxygen Delivery Method Room Air Intake Visit Reasons: 3mon follow up w/labs-Conf Beeswax Bleacher Required: Yes Beeswax Bleacher Language: Immersion Metalcleaner Services: Beeswax Bleacher Offered & Declined ([facility] director of marketing and promotions services refused/Pt accompanied by friend (Jerrica)) Accompanied by: Other Relationship Allergies No Known Allergies Allergy (Verified 06/23/24 10:03) HPI Comments Details: Karri was seen in follow up for CKD and hypertension. He has been very iron deficient. He has pulmonary fibrosis. He denies DM but has hypertension for a long time. He denies neuropathy , retinopathy, ROSALIND , PAD or carotid stenosis. He is on SGLT2i. He does not take NSAID's regularly. He denies any nausea, vomiting, diarrhea, worsening SOB, edema, PND, orthopnea, hematuria, hearing deficits hepatitis or HIV. He claims to be compliant with medications. He has no sinusitis, epistaxis, photosensitivity, bone pain, sore throat , hemoptysis, skin lesions or recent antibiotic intake. [facility] Medical History Respiratory failure with hypoxia Nocturnal hypoxemia Pulmonary fibrosis Pulmonary asbestosis COPD (chronic obstructive pulmonary disease) Social History Patient Tobacco Use Status: Never used Tobacco Review of Systems Const All systems reviewed & are unremarkable except as noted in HPI and below Physical Exam Vital Signs: Last Vital Signs Pulse 70 06/23/24 10:05 BP 120/60 06/23/24 10:05 Pulse Ox 95 06/23/24 10:05 Oxygen Delivery Method Room Air 06/23/24 10:05 BMI result Body Mass Index 29.4 Const General: comfortable and no acute distress Orientation/consciousness: patient oriented x3 HEENT Head: Yes normocephalic Mouth: Normal oral and palatal mucosa present Eyes EOM: EOMs intact bilaterally Neck Neck: Yes supple Resp Auscultation: clear to auscultation bilaterally Cardio Jugular venous distension: no JVD Rate: regular rate GI Palpation (GI): Soft to palpation Auscultation: normal bowel sounds General: Yes no CVA tenderness Back/Spine/Pelvis Back: no CVA tenderness Skin General skin exam: no rashes or lesions noted Neuro General: patient oriented x3 and moves all extremities Extrem General: Yes no pedal edema Results Reviewed Nephrology Results: Hgb 11.7 g/dl (14.0-18.0) L 03/20/24 WBC 8.2 X10*3/uL (4.8-10.8) 03/20/24 Plt Count 267 X10*3/uL (160-400) 03/20/24 Sodium 139 mmol/L (135-145) 05/17/24 Potassium 3.9 mmol/L (3.3-5.1) 05/17/24 Chloride 106 mmol/L (96-108) 05/17/24 Carbon Dioxide 27 mmol/L (22-29) 05/17/24 BUN 30 mg/dL (9-16) H 05/17/24 Creatinine 2.03 mg/dL (0.5-1.4) H 05/17/24 Calcium 9.7 mg/dL (8.4-10.2) 03/20/24 Assessment & Plan Assessment & Plan (1) Hypertension: Code(s): I10 - Essential (primary) hypertension Category: Medical Qualifiers: Hypertension type: primary hypertension Qualified Code(s): I10 - Essential (primary) hypertension (2) Proteinuria: Code(s): R80.9 - Proteinuria, unspecified Category: Medical Qualifiers: Proteinuria type: other Qualified Code(s): R80.8 - Other proteinuria (3) CKD (chronic kidney disease) stage 3, GFR 30-59 ml/min: Code(s): N18.30 - Chronic kidney disease, stage 3 unspecified Category: Medical Qualifiers: Chronic kidney disease stage 3 subtype: stage 3b (GFR 30-44) Qualified Code(s): N18.32 - Chronic kidney disease, stage 3b Plan Renal function had been stable Blood pressure at goal at home On SGLT2 i; No NSAID's; Needs weight loss C/W torsemide current dose No other medication changes today Labs AM; F/U 3 M Orders: Orders Electrolytes 3 Months I10 - Essential (primary) hypertension, N18.32 - Chronic kidney disease, stage 3b, R80.8 - Other proteinuria Creatinine 3 Months I10 - Essential (primary) hypertension, N18.32 - Chronic kidney disease, stage 3b, R80.8 - Other proteinuria Blood Urea Nitrogen 3 Months I10 - Essential (primary) hypertension, N18.32 - Chronic kidney disease, stage 3b, R80.8 - Other proteinuria Coding Level of Care Code Est Pt Level 4 (58123) Diagnoses Primary hypertension I10 Hypertension type: primary hypertension Other proteinuria R80.8 Proteinuria type: other Stage 3b chronic kidney disease N18.32 Chronic kidney disease stage 3 subtype: stage 3b (GFR 30-44)
[2024-06-23 10:05] VITALS: BP 120/60; PULSE 70; O2SAT 95; BMI 29.4
--- OUTSIDE RECORDS SUMMARY | 2024-06-23 11:08 | XMS_ITS | Clinical Summary ---
Author Organization [facility] Address [address] [place] [address] Phone Care Team Providers Care Rehabilitation Attendant Name Role Phone Gallo Flores MD Primary Care Provider Allergies No known active allergies Medications fluticasone [...] to complete this topic Insurance [address] [place] [address] [facility] ([id number]) [facility] ([id number]) Care Teams Rehabilitation Attendant Relationship Specialty Start Date End Date Gallo Flores MD PCP - General 04/01/20
--- OUTSIDE RECORDS SUMMARY | 2024-06-23 11:09 | XMS_ITS | Clinical Summary ---
Author Organization [employer] Address 75 [facility] 7t [place] [address] Care Team Providers Care Assembly Machine Set Up Mechanic Name Role Phone Gallo Flores MD Primary Care Provider +- [phone] Allergies No known active allergies Medications dilTIAZem [...] the morning. 30 tablet 11 4 Active Eliquis 5 MG tablet [...] MOUTH BEFORE A MEAL 30 capsule 11 4 Active cholecalciferol (Vitamin D-3) 25 MCG (1000 UT) capsule Take 1 capsule (25 mcg) by mouth Once per day. 30 capsule 11 5 Active Active Problems Problem Noted Date Diagnosed [...] Encounters Date Type Department Care Team Description 05/18/2024 Refill [facility] MEDICINE [address] [place] [address] Gallo Flores MD from Last 3 Months Immunizations Name Administration [...] with others, in a hotel, in a correction, living outside on the street, on a [...] patient's age to complete this topic Insurance - [employer] Care Teams Assembly Machine Set Up Mechanic Relationship Specialty Start Date End Date Gallo Flores MD [address] [place] [phone] PCP - General Internal Medicine 06/30/11
--- OUTSIDE RECORDS SUMMARY | 2024-06-23 11:09 | XMS_ITS | Encounter Summary ---
Author Organization [employer] Address [address] [facility] [address] 7[address] [place] [address] Care Team Providers Care Contracting Support Specialist Name Role Phone Gallo Flores MD Primary Care Provider [phone] Encounter Details Date Type Department Care Team (Late st Contact Info) Description 07/27/2023 Orders Only [facility] MED & PEDS [address] [place] [address] ProviderSangeeta MD Social History Tobacco Use Types Packs/Day Years Used Date Smoking Tobacco: Former Cigarettes 0.5 50 1 962 - 2011 Smokeless Tobacco: Never Depression Answer Date Recorded Patient Health Questionnaire-9 Score 0 06/29/2022 Housing Stability Answer Date Recorded What is your housing situation today? I do not have housing (Staying with others, in a hotel, in a fdc, living outside on the street, on a [...] documented as of this encounter Care Teams Contracting Support Specialist Relationship Specialty Start Date End Date Gallo Flores MD [address] [place] [id number] PCP - General Internal Medicine 06/30/11 documented as of this encounter
--- OUTSIDE RECORDS SUMMARY | 2024-06-23 11:09 | XMS_ITS | Encounter Summary ---
Author Organization [employer] Address [address] [facility] [address] 7[address] [place] [address] Care Team Providers Care Film Sound Coordinator Name Role Phone Gallo Flores MD Primary Care Provider [phone] Encounter Details Date Type Department Care Team ([facility] st Contact Info) Description 12/01/2023 Abstract [facility] CH[facility] MED & PEDS [address] [place] [address] Gallo Flores MD [address] [place], [place] [phone] Social History Tobacco Use Types Packs/Day Years Used Date Smoking Tobacco: Former Cigarettes 0.5 50 1 962 - 2011 Smokeless Tobacco: Never Depression Answer Date Recorded Patient Health Questionnaire-9 Score 0 06/29/2022 Housing Stability Answer Date Recorded What is your housing situation today? I do not have housing (Staying with others, in a hotel, in a halfway, living outside on the street, on a [...] documented as of this encounter Care Teams Film Sound Coordinator Relationship Specialty Start Date End Date Gallo Flores MD [address] [place] [id number] PCP - General Internal Medicine 06/30/11 documented as of this encounter
--- OUTSIDE RECORDS SUMMARY | 2024-06-23 11:09 | XMS_ITS | Encounter Summary ---
Author Organization [employer] Address [address] [facility] 7t [place] [address] Care Team Providers Care Craps Dealer Name Role Phone Gallo Flores MD Primary Care Provider [phone] Reason for Visit * Reason Onset Date Comments Error 07/29/2023 Encounter Details Date Type Department Care Team (Late st Contact Info) Description 07/29/2023 Telephone [facility] MEDICINE 230 [place] [address] Gallo Flores MD [address] [place], [place] [phone] Error Social History Tobacco Use Types Packs/Day Years Used Date Smoking Tobacco: Former Cigarettes 0.5 50 1 962 - 2012 Smokeless Tobacco: Never Depression Answer Date Recorded Patient Health Questionnaire-9 Score 0 06/29/2022 Housing Stability Answer Date Recorded What is your housing situation today? I do not have housing (Staying with others, in a hotel, in a assisted, living outside on the street, on a [...] documented as of this encounter Care Teams Craps Dealer Relationship Specialty Start Date End Date Gallo Flores MD [address] [place] [phone] PCP - General Internal Medicine 06/30/11 documented as of this encounter
== END 2024-06-23 10:18 | disposition home or self-care (01) ==
LOC: HO.HKA 09:55
PROVIDERS: PCP Internal Medicine; Visit Provider Internal Medicine Nephrology
DX: I10 Essential (primary) hypertension (principal); R80.8 Other proteinuria; N18.32 Chronic kidney disease, stage 3b
CPT/HCPCS: 99214

== ENCOUNTER → 2024-06-23 09:54 | Outpatient (BNVA) | payer OTHER, SELFPAY | PROVIDERS: PCP Internal Medicine; Visit Provider Internal Medicine Nephrology | DX: I12.9 Hypertensive chronic kidney disease with stage 1 through stage 4 chronic kidney disease, or unspecified chronic kidney disease (principal); R80.8 Other proteinuria; N18.32 Chronic kidney disease, stage 3b | CPT/HCPCS: 99212 ==

== ENCOUNTER 2024-07-17 10:42 | Outpatient (AMB) | payer OTHER, SELFPAY ==
[2024-07-17 10:54] VITALS: BP 144/68; PULSE 73; O2SAT 93; BMI 29.7
--- NOTE | 2024-07-17 10:54 | MHC.OFFVIS ---
Vital Signs 07/17/24 10:54 Height 5 ft 4 in Weight 173 lb 1.006 oz BMI 29.7 BP 144/68 H Blood Pressure Location Lt brachial Position Sitting Pulse 73 Pulse Source Pulse Oximeter Pulse Oximetry (%) 93 Oxygen Delivery Method Room Air Intake Visit Reasons: COPD Intake Note: pt is here for follow up and states he is feeling good. using oxygen at night while sleeping Production Utility Worker Required: No Allergies No Known Allergies Allergy (Verified 07/17/24 11:13) Medication List - Last Reconciled 07/17/24 by Lorin Perry MD albuterol sulfate 90 mcg/actuation 2 puffs inhalation Q4-6H PRN 30 days apixaban (Eliquis) 5 mg PO BID cholecalciferol (vitamin D3) (Vitamin D3) 25 mcg PO DAILY dapagliflozin propanediol (Farxiga) 10 mg PO DAILY diltiazem HCl ER 180 mg PO DAILY ferrous sulfate 325 mg PO BID 90 days hydralazine 100 mg PO TID isosorbide mononitrate ER 30 mg PO DAILY losartan 100 mg PO DAILY omeprazole 20 mg PO DAILY torsemide 20 mg PO DAILY umeclidinium 62.5 mcg/actuation (Incruse Ellipta) 1 inh inhalation DAILY Do you need a note to return to daycare/school/sports/work: No HPI HPI COPD: Details: SANDIE IS SINGLE, [employer]-SPE[employer]ING. COMES FOR 6 MONTHS FOLLOW-UP, ACCOMPANIED BY HIS [id number] WHO IS INTERPRETING FOR HIM., AND ALSO LOOKS AFTER HIM AT HOME. HE IS BEING TREATED WITH INCRUSE ELLIPTA FOR HIS COPD, AND USES ALBUTEROL HFA ONLY NEEDED. HE HAS NOCTURNAL HYPOXEMIA AND USES O2 3 L/MINUTE AT NIGHT. HE DOES HAVE PORTABLE UNIT BUT HAS NEVER USED IT HE DOES NOT WALK MUCH. HE STAYS MOSTLY AT HOME. LUCKILY HE HAS HAD NO ACUTE INFECTION OR EXACERBATION IN THE LAST 6 MONTHS. [facility] Medical History Respiratory failure with hypoxia Nocturnal hypoxemia Pulmonary fibrosis Pulmonary asbestosis COPD (chronic obstructive pulmonary disease) Social History Patient Tobacco Use Status: Never used Tobacco Review of Systems Const All systems reviewed & are unremarkable except as noted in HPI and below Eyes Reports no additional complaints ENT Reports nasal congestion (Mild intermittent) Card Denies irregular heart rhythm and Denies leg edema Resp Reports as per HPI GI Reports heartburn (Controlled with med) Reports no additional complaints Musc Reports no additional complaints Skin/Breast Reports system reviewed and no additional complaints, except as documented Neuro Reports no additional complaints Psych Reports no additional complaints Physical Exam Vital Signs: Last Vital Signs Pulse 73 07/17/24 10:54 BP 144/68 H 07/17/24 10:54 Pulse Ox 93 07/17/24 10:54 Oxygen Delivery Method Room Air 07/17/24 10:54 BMI result Body Mass Index 29.7 Const General: comfortable, no acute distress, alert and awake Orientation/consciousness: patient oriented x3 HEENT Head: Yes normal to inspection General nose exam: No nasal polyps present and No nasal discharge present Face and sinus: Yes sinuses nontender Mouth: oropharynx normal Throat: Yes posterior oropharynx normal Eyes General: appearance normal, both eyes and all related structures Neck Neck: Yes normal visual inspection, Yes no lymphadenopathy, Yes trachea midline and Yes no JVD Thyroid: Thyroid normal Chest Chest palpation & inspection: normal inspection of the chest, normal palpation of entire chest wall and no tenderness Resp Other: Percussion note is resonant, he has equal breath sounds on both sides somewhat distant with prolonged expiratory phase. NO WHEEZES OR CREPITATIONS ARE HEARD. Cardio Palpation: normal PMI Rate: regular rate Rhythm: regular rhythm Heart sounds: no gallops and no murmurs GI Palpation (GI): Soft to palpation, nontender, No hepatosplenomegaly present and no masses Auscultation: normal bowel sounds Back/Spine/Pelvis Thoracic/Lumbar Spine: thoracic and lumbar spine normal to inspection Skin General skin exam: no rashes or lesions noted Neuro General: patient oriented x3 and no focal motor deficits Cranial nerves: Yes CN's II-XII intact bilaterally Extrem General: Yes normal to inspection, Yes no clubbing, cyanosis or edema and Yes no calf tenderness Psych Appearance: grossly normal and well kempt Speech and movement: Normal speech and movement present Assessment & Plan Assessment & Plan (1) COPD (chronic obstructive pulmonary disease): Comment: MILD TO MODERTAE DEGREE OF COPD , MOSTLY WELL CONTROLLED, COMPLAINS OF MILD INTERMITTENT COUGH AND INCREASED SHORTNESS OF BREATH ON WALKING FEELS BETTER WHEN HE IS USING O2 . LATELY HE IS NOT USING OXYGEN ALL THE TIMES AND USES ONLY P.R.N. IF HE GETS SHORT OF BREATH, DURING THE DAYTIME HE TOLD ME THAT HE DOES NOT WALK MUCH DURING THE DAYTIME, SO HE DOES NOT FEEL NEED TO USE THE OXYGEN. Code(s): J44.9 - Chronic obstructive pulmonary disease, unspecified Category: Medical Plan: CONTINUE TO USE INCRUSE ELLIPTA 1 INHALATION DAILY . AND ALBUTEROL HFA 2 PUFFS Q 6 HOURS P.R.N. FOR ANY ACUTE WHEEZING OR SHORTNESS OF BREATH. (2) Pulmonary fibrosis: Comment: MILD , SEC TO ASBESTOSIS ,STABLE . DOES NOT NEED ANY ACTIVE MEDICATION. Code(s): J84.10 - Pulmonary fibrosis, unspecified Category: Medical Plan: NO ACTIVE TREATMENT FOR PULMONARY FIBROSIS (3) Respiratory failure with hypoxia: Comment: PATIENT DOES HAVE NOCTURNAL HYPOXEMIA WELL DAYTIME EXERTIONAL HYPOXEMIA. THE DEGREE OF HYPOXEMIA VARIES WITH THE LEVEL OF HIS CONGESTIVE HEART FAILURE. NOW THAT COPD AND CONGESTIVE HEART FAILURE OR BOTH WELL CONTROLLED, HE IS NOT NEEDING TO USE OXYGEN DURING THE DAYTIME. Code(s): J96.91 - Respiratory failure, unspecified with hypoxia Category: Medical Plan: ADVISED TO KEEP ON USING O2 3 L/MINUTE AT NIGHT WHEN SLEEPING. USE O2 DURING THE DAYTIME ONLY P.R.N. IF THERE IS A BOUT OF DYSPNEA . Coding Level of Care Code Est Pt Level 3 (55243) Diagnoses COPD (chronic obstructive pulmonary disease) J44.9 Pulmonary fibrosis J84.10 Respiratory failure with hypoxia J96.91
--- OUTSIDE RECORDS SUMMARY | 2024-07-17 12:42 | XMS_ITS | Encounter Summary ---
Author Organization [employer] Address [address] 7[address] [place] [address] Care Team Providers Care Software Development Advisor Name Role Phone Gallo Flores MD Primary Care Provider [phone] [phone] Encounter Details Date Type Department Care Team ([facility] st Contact Info) Description 12/01/2023 Abstract [facility] CHC MED & PEDS [address] [place] [address] Gallo Flores MD [address] [place], [place] [phone] Social History Tobacco Use Types Packs/Day Years Used Date Smoking Tobacco: Former Cigarettes 0.5 50 1 962 - 2011 Smokeless Tobacco: Never Depression Answer Date Recorded Patient Health Questionnaire-9 Score 0 06/29/2022 Housing Stability Answer Date Recorded What is your housing situation today? I do not have housing (Staying with others, in a hotel, in a senior living, living outside on the street, on a [...] documented as of this encounter Care Teams Software Development Advisor Relationship Specialty Start Date End Date Gallo Flores MD [address] [place] [id number] PCP - General Internal Medicine 06/30/11 documented as of this encounter
--- OUTSIDE RECORDS SUMMARY | 2024-07-17 12:42 | XMS_ITS | Encounter Summary ---
Author Organization [employer] Address [address] [facility] 7t [place] [address] Care Team Providers Care Hand Striper Name Role Phone Gallo Flores MD Primary Care Provider [phone]- [phone] Reason for Visit * Reason Onset Date Comments Error 07/29/2023 Encounter Details Date Type Department Care Team (Late st Contact Info) Description 07/29/2023 Telephone [facility] MEDICINE [address] [place] [address] Gallo Flores MD [address] [place], [place] [phone] Error Social History Tobacco Use Types Packs/Day Years Used Date Smoking Tobacco: Former Cigarettes 0.5 50 1 962 - 2012 Smokeless Tobacco: Never Depression Answer Date Recorded Patient Health Questionnaire-9 Score 0 06/29/2022 Housing Stability Answer Date Recorded What is your housing situation today? I do not have housing (Staying with others, in a hotel, in a prison, living outside on the street, on a [...] documented as of this encounter Care Teams Hand Striper Relationship Specialty Start Date End Date Gallo Flores MD [address] [place] [phone] PCP - General Internal Medicine 06/30/11 documented as of this encounter
--- OUTSIDE RECORDS SUMMARY | 2024-07-17 12:42 | XMS_ITS | Clinical Summary ---
Author Organization [employer] Address [address] [facility] 7t [place] [address] Care Team Providers Care Chief Credit Officer Name Role Phone Gallo Flores MD Primary Care Provider [phone]- [phone] Allergies No known active allergies Medications dilTIAZem [...] Type Department Care Team Description 05/18/2024 Refill [facility] MEDICINE [address] [place] [address] Gallo Flores MD from Last 3 Months [...] patient's age to complete this topic Insurance [facility] RETIREMENT OPTIONS (HMO D-SNP) [place]CI WALLACE [id number] [place] [address] Care Teams Chief Credit Officer Relationship Specialty Start Date End Date Gallo Flores MD [address] [place] [address] [place] [id number] PCP - General Internal Medicine 06/30/11
--- OUTSIDE RECORDS SUMMARY | 2024-07-17 12:42 | XMS_ITS | Clinical Summary ---
Author Organization [facility] Address [address] [place] [address] Phone Care Team Providers Care Wooden Boat Builder Name Role Phone Gallo Flores MD Primary [...] Due Date Last Done Comments Pneumococcal Vaccine: 50+ Ye ars (1 of 2 - PCV) 09/11/1964 Influenza Vaccine (Season Ended) 2024 Hepatitis B Vaccine Aged Out No longe r eligible based on patient's age to complete this topic Insurance [address] [place] [address] [facility] ([id number]) [facility] ([id number]) Care Teams Wooden Boat Builder Relationship Specialty Start Date End Date Gallo Flores MD PCP - General 04/01/20
--- OUTSIDE RECORDS SUMMARY | 2024-07-17 12:42 | XMS_ITS | Encounter Summary ---
Author Organization [email or web address] Address [address] [facility] [address] 7[address] [place] [address] Care Team Providers Care Engraver Hand Hard Metals Name Role Phone Gallo Flores MD Primary Care Provider [phone] Encounter Details Date Type Department Care Team (Late st Contact Info) Description 07/27/2023 Orders Only [facility] CHC MED & PEDS [address] [place] [address] ProviderSangeeta MD Social History Tobacco Use Types Packs/Day Years Used Date Smoking Tobacco: Former Cigarettes 0.5 50 1 962 - 2011 Smokeless Tobacco: Never Depression Answer Date Recorded Patient Health Questionnaire-9 Score 0 06/29/2022 Housing Stability Answer Date Recorded What is your housing situation today? I do not have housing (Staying with others, in a hotel, in a usp, living outside on the street, on a [...] documented as of this encounter Care Teams Engraver Hand Hard Metals Relationship Specialty Start Date End Date Gallo Flores MD [address] [place] [id number] PCP - General Internal Medicine 06/30/11 documented as of this encounter
== END 2024-07-17 11:15 | disposition home or self-care (01) ==
LOC: HO.HPS 10:43
PROVIDERS: PCP Internal Medicine; Visit Provider Internal Medicine
DX: J44.9 Chronic obstructive pulmonary disease, unspecified (principal); J84.10 Pulmonary fibrosis, unspecified; J96.91 Respiratory failure, unspecified with hypoxia
CPT/HCPCS: 99213

== ENCOUNTER → 2024-07-17 10:42 | Outpatient (BNVA) | payer OTHER, SELFPAY | PROVIDERS: PCP Internal Medicine; Visit Provider Internal Medicine | DX: J44.9 Chronic obstructive pulmonary disease, unspecified (principal); J84.10 Pulmonary fibrosis, unspecified; J96.91 Respiratory failure, unspecified with hypoxia | CPT/HCPCS: 99212 ==

== ENCOUNTER 2024-09-13 11:25 | Outpatient (REF) | payer OTHER, SELFPAY ==
--- OUTSIDE RECORDS SUMMARY | 2024-09-13 13:36 | XMS_ITS | Clinical Summary ---
Author Organization 175 [facility] Address 175 [place] [address] Phone Care Team Providers Care Microfilm Camera Operator Name Role Phone Nadeen Chris [facility] Primary Care Provider [phone] Social History Tobacco Use Types Packs/Day Years Used Date Smoking Tobacco: Never Assessed Sex and Gender Information Value Date Recorded Sex Assigned at Not on file Legal Sex Male 7:20 AM EDT Gender Identity Not on file Sexual Orientation Not on file Plan of Treatment Upcoming Encounters Date Type Department Care Team ([facility] st Contact Info) Description 11/07/2024 10:30 AM EDT Consult Orthopedic Surgery - [place] [address] [phone] Bernard Stein, DPM [address] [address] Health Maintenance Due Date Last Done Comments DTaP,Tdap,and Td Vaccines (1 - Tdap) 09/11/1964 Pneumococcal Vaccine: 50+ Ye ars (1 of 1 - PCV) 1994 Zoster Vaccines (1 of 2) 1994 RSV Immunization Adult Patie nts (1 - 1-dose 75+ series) 09/11/2019 COVID-19 Vaccine ( - 2023-2 5 season) 2023 Cholesterol Screening (Lipid Panel) 08/09/2024 Depression Screening 08/09/2024 Falls Risk Assessment 08/09/2024 Hepatitis C Screening 08/09/2024 Medicare Annual Wellness Visit 08/09/2024 Social Influencers of Health Screening 08/09/2024 Influenza Vaccine (Season Ended) 2024 HIB Vaccines Aged Out No longer eligi [...] on patient's age to complete this topic MMR Vaccines Aged Out No longer eligi ble based on patient's age to complete this topic Meningococcal ACWY Vaccine Aged Out N o longer eligible based on patient's age to complete this topic Meningococcal B Vaccine Aged Out No l onger eligible based on patient's age to complete this topic RSV Immunization Patients Un pete 20 months Aged Out No longer eligible b ased on patient's age to complete this topic Varicella Vaccines Aged Out No longer eligible based on patient's age to complete this topic Insurance [address] [place] [address] [facility] LONG TERM OPTIONS Member Subscriber Plan / Payer (Ef fective 2024-Present) Name:Karri Huntley Relation to Subscriber:Self Name:Karri Huntley Payer ID:[id number] Group ID:Not on file Type:Not on file Address: [facility] [address] [address] Care Teams Microfilm Camera Operator Relationship Specialty Start Date End Date Nadeen Chris FNP [address] [place] [phone] PCP - General Family Medicine 08/09/24
[2024-09-13 14:50] LABS: Blood Urea Nitrogen 26 mg/dL (9-16)
[2024-09-13 14:52] LABS: Alanine Aminotransferase 32 U/L (0-40); Albumin Level 3.9 g/dL (3.5-5.0); Alkaline Phosphatase 177 U/L (39-117); Anion Gap 11 (12-20); Aspartate Amino Transferase 39 U/L (5-37); Bilirubin Total 0.6 mg/dL (0.0-1.0); Blood Urea Nitrogen 24 mg/dL (9-16); Calcium 10.2 mg/dL (8.4-10.2); Carbon Dioxide 24 mmol/L (22-29); Chloride 108 mmol/L (96-108); Cholesterol 147 mg/dL (<200); Estimated Glomerular Filt Rate 34; Glucose Random 97 mg/dL (60-115); HDL Cholesterol 49 mg/dL (>40); LDL Cholesterol Calculated 87 mg/dL (<100); Potassium 4.6 mmol/L (3.3-5.1); Sodium 138 mmol/L (135-145); Total Protein 8.4 g/dL (6.5-8.0); Triglycerides 58 mg/dL (<150)
[2024-09-13 15:08] LABS: TSH reflex Free T4 1.58 uIU/mL (0.32-4.0)
== END 2024-09-13 11:26 | disposition home or self-care (01) ==
LOC: HO.CHCLDS 11:25
PROVIDERS: PCP Internal Medicine; Referring Provider Internal Medicine Nephrology; Visit Provider Internal Medicine
DX: I10 Essential (primary) hypertension (principal); R80.8 Other proteinuria; N18.32 Chronic kidney disease, stage 3b
CPT/HCPCS: 36415; 80053; 80061; 84443; 84520

== ENCOUNTER 2024-09-29 10:34 | Outpatient (AMB) | payer OTHER, SELFPAY ==
[2024-09-29 11:01] VITALS: BP 126/60; PULSE 73; O2SAT 93; BMI 28.7
--- NOTE | 2024-09-29 11:01 | HO.NEPHOV_ITS ---
Vital Signs 09/29/24 11:01 Height 5 ft 4 in Weight 167 lb BMI 28.7 BP 126/60 Blood Pressure Location Lt brachial Position Sitting Pulse 73 Pulse Source Pulse Oximeter Pulse Oximetry (%) 93 Oxygen Delivery Method Room Air Intake Visit Reasons: FU-Conf Maxillofacial Surgeon Required: Yes Maxillofacial Surgeon Name: chantell [id number] Accompanied by: Spouse Allergies No Known Allergies Allergy (Verified 09/29/24 11:06) HPI Comments Details: Karri was seen in follow up for CKD and hypertension. He has been very iron deficient. He has pulmonary fibrosis. He denies DM but has hypertension for a long time. He denies neuropathy , retinopathy, ROSALIND , PAD or carotid stenosis. He is on SGLT2i. He does not take NSAID's regularly. He denies any nausea, vomiting, diarrhea, worsening SOB, edema, PND, orthopnea, hematuria, hearing deficits hepatitis or HIV. He claims to be compliant with medications. He has no sinusitis, epistaxis, photosensitivity, bone pain, sore throat , hemoptysis, skin lesions or recent antibiotic intake. [facility] Medical History Respiratory failure with hypoxia Nocturnal hypoxemia Pulmonary fibrosis Pulmonary asbestosis COPD (chronic obstructive pulmonary disease) Social History Patient Tobacco Use Status: Never used Tobacco Review of Systems Const All systems reviewed & are unremarkable except as noted in HPI and below Physical Exam Vital Signs: Last Vital Signs Pulse 73 09/29/24 11:01 BP 126/60 09/29/24 11:01 Pulse Ox 93 09/29/24 11:01 Oxygen Delivery Method Room Air 09/29/24 11:01 BMI result Body Mass Index 28.7 Const General: comfortable and no acute distress Orientation/consciousness: patient oriented x3 HEENT Head: Yes normocephalic Mouth: Normal oral and palatal mucosa present Eyes EOM: EOMs intact bilaterally Neck Neck: Yes supple Resp Auscultation: clear to auscultation bilaterally Cardio Jugular venous distension: no JVD Rate: regular rate GI Palpation (GI): Soft to palpation Auscultation: normal bowel sounds General: Yes no CVA tenderness Back/Spine/Pelvis Back: no CVA tenderness Skin General skin exam: no rashes or lesions noted Neuro General: patient oriented x3 and moves all extremities Extrem General: Yes no pedal edema Results Reviewed Nephrology Results: Hgb, (14.0-18.0) 11.7 g/dl L 03/20/24 WBC, (4.8-10.8) 8.2 X10*3/uL 03/20/24 Plt Count, (160-400) 267 X10*3/uL 03/20/24 Sodium, (135-145) 138 mmol/L 09/13/24 Potassium, (3.3-5.1) 4.6 mmol/L 09/13/24 Chloride, (96-108) 108 mmol/L 09/13/24 Carbon Dioxide, (22-29) 24 mmol/L 09/13/24 BUN, (9-16) 24 mg/dL H 09/13/24 Creatinine, (0.5-1.4) 1.92 mg/dL H 09/13/24 Calcium, (8.4-10.2) 10.2 mg/dL 09/13/24 Assessment & Plan Assessment & Plan (1) Hypertension: Code(s): I10 - Essential (primary) hypertension Category: Medical Qualifiers: Hypertension type: primary hypertension Qualified Code(s): I10 - Essent ial (primary) hypertension (2) CKD (chronic kidney disease) stage 3, GFR 30-59 ml/min: Code(s): N18.30 - Chronic kidney disease, stage 3 unspecified Category: Medical Qualifiers: Chronic kidney disease stage 3 subtype: stage 3b (GFR 30-44) Qualified Code(s): N18.32 - Chronic kidney disease, stage 3b Plan Renal function had been stable Blood pressure at goal at home On SGLT2 i; No NSAID's; Needs weight loss C/W torsemide current dose ( hydralazine on hold but shall restart if BP goes up) No other medication changes today Labs AM; F/U 3 M Orders: Orders Blood Urea Nitrogen 3 Months I10 - Essential (primary) hypertension, N18.32 - Chronic kidney disease, stage 3b Creatinine 3 Months I10 - Essential (primary) hypertension, N18.32 - Chronic kidney disease, stage 3b Electrolytes 3 Months I10 - Essential (primary) hypertension, N18.32 - Chronic kidney disease, stage 3b Coding Level of Care Code Est Pt Level 4 (57794) Diagnoses Primary hypertension I10 Hypertension type: primary hypertension Stage 3b chronic kidney disease N18.32 Chronic kidney disease stage 3 subtype: stage 3b (GFR 30-44)
--- OUTSIDE RECORDS SUMMARY | 2024-09-29 11:06 | XMS_ITS | Encounter Summary ---
Author Organization [employer] Address [address] [facility] [address] [place] [address] Care Team Providers Care Manager Oracle Retail Name Role Phone Gallo Flores MD Primary Care Provider [phone] Reason for Referral * Imaging (Routine) - Authorized Specialty Diagnoses / Procedures Referred By Clementina nichols Referred To Contact Radiology Diagnoses Transaminitis Procedures US Abdomen Comp w elastography Gallo Flores MD [address] [place] [address] Phone: tel: fax: [address] Phone: tel: fax: Referral ID Status Reason Start Date Expiration Date V isits Requested Visits Authorized [id number] Authorized 09/14/2024 09/14/2025 1 1 Encounter Details Date Type Department Care Team (Late st Contact Info) Description 09/14/2024 Orders Only [facility] [address] [place] [address] Gallo Flores MD [address] [place], [place] [id number] Transaminitis (Primary Dx) Social History Tobacco Use Types Packs/Day Years Used Date Smoking Tobacco: Former Cigarettes 0.5 50 1 962 - 2012 Smokeless Tobacco: Never Depression Answer Date Recorded Patient Health Questionnaire-9 Score 0 09/13/2024 Patient Health Questionnaire-9 Score 0 09/13/2024 Last PHQ-9: Questionnaire Data Not on file 0 09/13/2024 Housing Stability Answer Date Recorded What is your housing situation today? I have jonathan mesa 09/13/[address] you li ve. Do you have problems with any of the following? None of the above 09/13/2024 Food Insecurity Answer Date Recorded Within the past 12 months, y ou worried that your food would run out before you got money to buy more: Never True 09/13/2024 Within the past 12 months,th e food you bought just didn't last and you didn't have enough money to get more: Never True Transportation Answer Date Recorded In the past 12 months, has l ack of transportation kept you from medical appts, meetings, work or from getting things needed for daily living? No 09/13/2024 Utilities Answer Date Recorded In the past 12 months, has t he electric, gas, oil or water company threatened to shut off services in your home? No 09/13/2024 Depression Answer Date Recorded Patient Health Questionnaire-2 Score 0 09/13/2024 Internet Access Answer Date Recorded Internet Access Q1 Yes 09/13/2024 Internet Access Q2 Not on file 09/13/2024 Sex and Gender Information Value Date Recorded Sex Assigned at Male 01/19/2022 10:16 AM EDT Legal Sex Male 10:16 AM EDT Gender Identity Male 01/19/2022 10:16 AM EDT Sexual Orientation Choose not to disclose 2021 10:16 AM EDT documented as of this encounter Plan of Treatment Scheduled Orders Name Type Priority Associated Diagnoses Orde r Schedule Smooth Muscle Antibody with Reflex to Titer Lab Routine Transaminitis Expected: 09/14/2024 (Approximate), Expires: 09/14/2025 Immunoglobulins, Quantitative, IgA, IgG, IgM Lab Routine Transaminitis Expected: 09/14/2024 (Approximate), Expires: 09/14/2025 Prothrombin Time-INR Lab Routine Transaminitis Expected: 09/14/2024, Expires: 09/14/2025 Ferritin Lab Routine Transaminitis Expected: 09/14/2024, Expires: 09/14/2025 Iron And Total Iron Binding Capacity Lab Routine Transaminitis Expected: 09/14/2024, Expires: 09/14/2025 Alpha 1 Antitrypsin Lab Routine Transaminitis Expected: 09/14/2024 (Approximate), Expires: 09/14/2025 Hepatitis B Surface Antibody, Qualitative Lab Routine Transaminitis Expected: 09/14/2024 (Approximate), Expires: 09/14/2025 US Abdomen Comp w elastography Imaging Routine Transaminitis Expected: 09/14/2024, Expires: 09/14/2025 documented as of this encounter Visit Diagnoses Diagnosis Transaminitis- Primary Nonspecific elevation of levels of transaminase or lactic acid dehydrogenase (LDH) documented in this encounter Additional Health Concerns Assessment Noted Time PHQ-9 Depression Total Score: 0 09/14/19 25 11:20 AM EDT documented as of this encounter Care Teams Manager Oracle Retail Relationship Specialty Start Date End Date Gallo Flores MD [address] [place] [id number] PCP - General Internal Medicine 06/30/11 documented as of this encounter
--- OUTSIDE RECORDS SUMMARY | 2024-09-29 11:06 | XMS_ITS | Clinical Summary ---
Author Organization [facility] Address [address] [place] [address] Phone Care Team Providers Care Wealth Management Advisor Name Role Phone Gallo Flores MD Primary Care Provider [phone] Allergies No known active allergies Medications fluticasone [...] of 2 - PCV) 09/11/1964 Influenza Vaccine (#1) 2024 Hepatitis B Vaccine Aged Out No longe r eligible based on patient's age to complete this topic Insurance [address] [place] [address] [facility] ([id number]) [facility] ([id number]) Care Teams Wealth Management Advisor Relationship Specialty Start Date End Date Gallo Flores MD PCP - General 04/01/20
--- OUTSIDE RECORDS SUMMARY | 2024-09-29 11:06 | XMS_ITS | Clinical Summary ---
Author Organization 175 [facility] Address [address] [place] [address] Phone Care Team Providers Care Mat Roller Name Role Phone Nadeen Chris [facility] Primary Care Provider [phone] Social History Tobacco Use Types Packs/Day Years Used Date Smoking Tobacco: Never Assessed Sex and Gender Information Value Date Recorded Sex Assigned at Not on file Legal Sex Male 7:20 AM EDT Gender Identity Not on file Sexual Orientation Not on file Plan of Treatment Upcoming Encounters Date Type Department Care Team ([facility] st Contact Info) Description 11/07/2024 10:30 AM EDT Consult Orthopedic Surgery - [place] [address] [phone] Bernard Stein, DPM [address] [address] Health Maintenance Due Date Last Done Comments DTaP,Tdap,and Td Vaccines (1 - Tdap) 09/11/1964 Pneumococcal Vaccine: 50+ Ye ars (1 of 1 - PCV) 1994 Zoster Vaccines (1 of 2) 1994 RSV Immunization Adult Patie nts (1 - 1-dose 75+ series) 09/11/2019 COVID-19 Vaccine ( - 2023-2 5 season) 2023 Cholesterol Screening (Lipid Panel) 08/09/2024 Depression Screening 08/09/2024 Falls Risk Assessment 08/09/2024 Medicare Annual Wellness Visit 08/09/2024 Social Influencers of Health Screening 08/09/2024 Influenza Vaccine (#1) 2024 HIB Vaccines Aged Out No longer [...] patient's age to complete this topic Insurance [facility] OPTIONS Member Subscriber Plan / Payer (Ef fective 2024-Present) Name:Karri Huntley Relation to Subscriber:Self Name:Karri Huntley Payer ID:[id number] Group ID:Not on file Type:Not on file Address: [facility] [address] [address] Care Teams Mat Roller Relationship Specialty Start Date End Date Nadeen Chris FNP [address] [place] [phone] PCP - General Family Medicine 08/09/24
--- OUTSIDE RECORDS SUMMARY | 2024-09-29 11:07 | XMS_ITS | Patient Health Record ---
Author Organization [facility] Address [address] [place] [address] Care Team Providers Care Textiles Sales Representative Name Role Phone alessandra quesada Primary Care Provider UnavailJewel Ruelas Jr Unavailable Reason For Referral No Information Plan Of Treatment No Information Insurance Providers Payer Name Payer Address Payer Phone Subscriber Number Group Number Insured Name Patient Relationship to Insured Coverage Start Date Coverage End Date [place] [address] [place] [address] [id number] SANDIE AKERS Self - patient is the insured MEDICAID OF [facility] [address] [place] [address] [id number] SANDIE AKERS Self - patient is the insured
== END 2024-09-29 11:25 | disposition home or self-care (01) ==
LOC: HO.HKA 10:34
PROVIDERS: PCP Internal Medicine; Visit Provider Internal Medicine Nephrology
DX: I10 Essential (primary) hypertension (principal); N18.32 Chronic kidney disease, stage 3b
CPT/HCPCS: 99214

== ENCOUNTER → 2024-09-29 10:34 | Outpatient (BNVA) | payer OTHER, SELFPAY | PROVIDERS: PCP Internal Medicine; Visit Provider Internal Medicine Nephrology | DX: N18.32 Chronic kidney disease, stage 3b (principal); I10 Essential (primary) hypertension | CPT/HCPCS: 99212 ==

== ENCOUNTER 2024-10-17 14:56 | Outpatient (AMB) | payer OTHER, SELFPAY ==
--- NOTE | 2024-10-17 15:01 | MHC.OFFVIS ---
Vital Signs 10/17/24 15:02 Height 5 ft 4 in Weight 197 lb 5.019 oz BMI 33.9 BP 140/60 H Blood Pressure Location Lt brachial Position Sitting Pulse 70 Pulse Source Pulse Oximeter Pulse Oximetry (%) 94 Oxygen Delivery Method Nasal Cannula Oxygen Flow Rate 2 Intake Visit Reasons: COPD/Hosp DC Follow Up ([facility]) Intake Note: pt is here for follow up of [facility] Predictive Maintenance Technician Required: Yes Predictive Maintenance Technician Services: Predictive Maintenance Technician Present Predictive Maintenance Technician Name: Jeane Colby Allergies No Known Allergies Allergy (Verified 10/17/24 15:04) HPI HPI COPD/Hosp DC Follow Up ([facility]): Details: THIS 79 YEARS OLD VERY PLEASANT GENTLEMAN SPEAKS ONLY HUNGARIAN. HIS [id number] TAKES CARE OF HIM AT HOME. SHE IS WITH HIM AT THIS TIME IN THE OFFICE. HE WAS ADMITTED TO [facility] ON 10/11 AND DISCHARGED ON 10/14. MAIN COMPLAINT WAS COUGH WITH HEMOPTYSIS. HE WAS DIAGNOSED TO HAVE COMMUNITY-ACQUIRED PNEUMONIA AND TREATED WITH A COURSE OF ANTIBIOTIC WHICH HE HAS COMPLETED. FOR THE PAST FEW DAYS THAT HE HAS BEEN AT HOME, HE STILL HAS COUGH AND STILL HAS A TINGE OF BLOOD EVERY NOW AND THEN. HE IS AFRAID TO CONTINUE TAKING BLOOD THINNER ( ELIQUIS 5 MG B.I.D. ) BREATHING IS FAIRLY STABLE BUT HE IS NOW USING OXYGEN 2 L/MINUTE MOST OF THE TIME. PREVIOUSLY HE WAS USING OXYGEN 2 L/MINUTE ONLY AT NIGHT AND P.R.N. DURING THE DAYTIME ,SANDIE HAS DIABETES MELLITUS CHRONIC KIDNEY DISEASE, HYPERTENSION, CHRONIC CONGESTIVE HEART FAILURE, PAROXYSMAL ATRIAL FLUTTER FIBRILLATION, REQUIRING ANTICOAGULATION. [facility] Medical History (Updated 10/17/24 @ 15:44 by Lorin Perry MD) Paroxysmal atrial fibrillation Respiratory failure with hypoxia Nocturnal hypoxemia Pulmonary fibrosis Pulmonary asbestosis COPD (chronic obstructive pulmonary disease) Social History Patient Tobacco Use Status: Never used Tobacco Review of Systems Const All systems reviewed & are unremarkable except as noted in HPI and below Eyes Reports no additional complaints ENT Reports nasal congestion (Mild intermittent) Card Denies irregular heart rhythm and Denies leg edema Resp Reports as per HPI GI Reports heartburn (Controlled with med) Reports no additional complaints Musc Reports no additional complaints Skin/Breast Reports system reviewed and no additional complaints, except as documented Neuro Reports no additional complaints Psych Reports no additional complaints Physical Exam Vital Signs: Last Vital Signs Pulse 70 10/17/24 15:02 BP 140/60 H 10/17/24 15:02 Pulse Ox 94 10/17/24 15:02 Oxygen Delivery Method Nasal Cannula 10/17/24 15:02 Oxygen Flow Rate 2 10/17/24 15:02 BMI result Body Mass Index 33.9 Const General: comfortable, no acute distress, alert and awake Orientation/consciousness: patient oriented x3 HEENT Head: Yes normal to inspection General nose exam: No nasal polyps present and No nasal discharge present Face and sinus: Yes sinuses nontender Mouth: oropharynx normal Throat: Yes posterior oropharynx normal Eyes General: appearance normal, both eyes and all related structures Neck Neck: Yes normal visual inspection, Yes no lymphadenopathy, Yes trachea midline and Yes no JVD Thyroid: Thyroid normal Chest Chest palpation & inspection: normal inspection of the chest, normal palpation of entire chest wall and no tenderness Resp Other: Percussion note is resonant, he has equal breath sounds on both sides somewhat distant with prolonged expiratory phase. NO WHEEZES OR CREPITATIONS ARE HEARD. Cardio Palpation: normal PMI Rate: regular rate Rhythm: regular rhythm Heart sounds: no gallops and no murmurs GI Palpation (GI): Soft to palpation, nontender, No hepatosplenomegaly present and no masses Auscultation: normal bowel sounds Back/Spine/Pelvis Thoracic/Lumbar Spine: thoracic and lumbar spine normal to inspection Skin General skin exam: no rashes or lesions noted Neuro General: patient oriented x3 and no focal motor deficits Cranial nerves: Yes CN's II-XII intact bilaterally Extrem General: Yes normal to inspection, Yes no clubbing, cyanosis or edema and Yes no calf tenderness Psych Appearance: grossly normal and well kempt Speech and movement: Normal speech and movement present Results Reviewed Results Reviewed: DISCHARGE NOTE FROM [facility] WAS REVIEWED. CURRENT LIST OF MEDICATIONS, BASICALLY SAME BEFORE IS REVIEWED, AND EXPLAINED TO [id number] Assessment & Plan Assessment & Plan (1) COPD (chronic obstructive pulmonary disease): Comment: MILD TO MODERTAE DEGREE OF COPD , MOSTLY WELL CONTROLLED, COMPLAINS OF MILD INTERMITTENT COUGH AND INCREASED SHORTNESS OF BREATH ON WALKING FEELS BETTER WHEN HE IS USING O2 . LATELY HE IS NOT USING OXYGEN ALL THE TIMES AND USES ONLY P.R.N. IF HE GETS SHORT OF BREATH, DURING THE DAYTIME SINCE HIS DISCHARGE FROM THE HOSPITAL HE IS USING O2 2 L/MINUTE CONTINUOUSLY. Code(s): J44.9 - Chronic obstructive pulmonary disease, unspecified Category: Medical Plan: CONTINUE TO USE INCRUSE ELLIPTA 1 INHALATION DAILY. ALBUTEROL HFA 2 PUFFS Q 6 HOURS P.R.N.. (2) Pulmonary asbestosis: Comment: CHRONIC , MINIMAL. STABLE . 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 Code(s): J84.10 - Pulmonary fibrosis, unspecified Category: Medical Plan: DOES NOT NEED ANY ACTIVE MEDICATION. (4) Respiratory failure with hypoxia: Comment: PATIENT DOES HAVE NOCTURNAL HYPOXEMIA WELL DAYTIME EXERTIONAL HYPOXEMIA. THE DEGREE OF HYPOXEMIA VARIES WITH THE LEVEL OF HIS CONGESTIVE HEART FAILURE. NOW SINCE HIS RECENT HOSPITALIZATION HE NEEDS TO USE O2 L THAT COPD AND CONGESTIVE HEART FAILURE OR BOTH WELL CONTROLLED, HE IS NOT NEEDING TO USE OXYGEN DURING THE DAYTIME AT 2 L/MINUTE Code(s): J96.91 - Respiratory failure, unspecified with hypoxia Category: Medical Plan: ADVISED TO CONTINUE USING OXYGEN 2 L/MINUTE AT NIGHT AND ALSO FOR MOST OF THE TIME DURING DAYS. INQUIRED ABOUT HAVING POC. I TOLD HIM THAT IF HE IS STABLE THEN WE WILL DO 6 MINUTES WALK TEST ON HIS NEXT VISIT (5) Paroxysmal atrial fibrillation: Comment: PATIENT HAS PAROXYSMAL ATRIAL FIBRILLATION, CHRONIC CONGESTIVE HEART FAILURE, CT SCAN AT HOSPITAL WAS NEGATIVE FOR PULMONARY EMBOLISM. ATRIAL FIBRILLATION IS WELL CONTROLLED AT THIS TIME Code(s): I48.0 - Paroxysmal atrial fibrillation Category: Medical Plan: BECAUSE OF PAROXYSMAL ATRIAL FIBRILLATION HE IS ON ANTICOAGULATION WITH ELIQUIS 5 MG B.I.D.. HE IS RECOVERING FROM HOSPITALIZATION DUE TO HEMOPTYSIS, HE IS AFRAID TO TAKE THE ANTICOAGULANT MED. I ADVISED HIM TO TAKE APIXABAN( ELIQUIS) 5 MG ONLY ONCE A DAY. AND WHEN SEEN AFTER 1 MONTH IF HE DOES NOT HAVE HEMOPTYSIS ANYMORE THEN IT WILL BE INCREASED TO TWICE A DAY. Coding Level of Care Code Est Pt Level 4 (21439) Diagnoses COPD (chronic obstructive pulmonary disease) J44.9 Pulmonary asbestosis J61 Pulmonary fibrosis J84.10 Respiratory failure with hypoxia J96.91 Paroxysmal atrial fibrillation I48.0
[2024-10-17 15:02] VITALS: BP 140/60; PULSE 70; O2SAT 94; BMI 33.9
--- OUTSIDE RECORDS SUMMARY | 2024-10-17 15:47 | XMS_ITS | Clinical Summary ---
Author Organization 175 [facility] Address [address] [place] [address] Phone Care Team Providers Care Cnc Service Technician Name Role Phone Nadeen Chris [facility] Primary Care Provider [phone] Social History Tobacco Use Types Packs/Day Years Used Date Smoking Tobacco: Never Assessed Sex and Gender Information Value Date Recorded Sex Assigned at Not on file Legal Sex Male 7:20 AM EDT Gender Identity Not on file Sexual Orientation Not on file Plan of Treatment Upcoming Encounters Date Type Department Care Team ([facility] st Contact Info) Description 11/07/2024 10:30 AM EDT Consult Orthopedic Surgery - [place] [address] [phone] Bernard Stein, DPM [address] [address] Health Maintenance Due Date Last Done Comments DTaP,Tdap,and Td Vaccines (1 - Tdap) 09[birth year]11/1964 Pneumococcal Vaccine: 50+ Ye ars (1 of 1 - PCV) 1994 Zoster Vaccines (1 of 2) 1994 RSV Immunization Adult Patie nts (1 - 1-dose 75+ series) 09/11/2019 COVID-19 Vaccine ( - 2023-2 5 season) 2023 Depression Screening 03/22/2024 Cholesterol Screening (Lipid Panel) 08/09/2024 Falls Risk Assessment 08/09/2024 Medicare Annual [...] to complete this topic Insurance [facility] LONG TERM OPTIONS Member Subscriber Plan / Payer (Ef fective 2024-Present) Name:Karri Huntley Relation to Subscriber:Self Name:Karri Huntley Payer ID:[id number] Group ID:Not on file Type:Not on file Address: [facility] [address] [address] Care Teams Cnc Service Technician Relationship Specialty Start Date End Date Nadeen Chris FNP [address] [place] [address] PCP - General Family Medicine 08/09/24
--- OUTSIDE RECORDS SUMMARY | 2024-10-17 15:47 | XMS_ITS | Clinical Summary ---
Author Organization [facility] Address [address] [place] [address] Phone Care Team Providers Care Manager Wellness Name Role Phone Gallo Flores MD Primary [...] to complete this topic Insurance [address] [place] [address] [facility] ([id number]) [facility] ([id number]) Care Teams Manager Wellness Relationship Specialty Start Date End Date Gallo Flores MD PCP - General 04/01/20
--- OUTSIDE RECORDS SUMMARY | 2024-10-17 15:47 | XMS_ITS | Encounter Summary ---
Author Organization [facility] Address [address] [facility] 7t [place] [address] Care Team Providers Care Warehouse Supervisor Name Role Phone Gallo Flores MD Primary Care Provider [phone] Reason for Referral * Imaging (Routine) - Authorized Specialty Diagnoses / Procedures Referred By Clementina nichols Referred To Contact Radiology Diagnoses Transaminitis Procedures US Abdomen Comp w elastography Gallo Flores MD [address] [place] [address] Phone: tel: fax: [address] Phone: tel: fax: Referral ID Status Reason Start Date Expiration Date V isits Requested Visits Authorized [id number] Authorized 09/14/2024 09/14/2025 1 1 Encounter Details Date Type Department Care Team (Late st Contact Info) Description 09/14/2024 Orders Only [facility] CHC MED & PEDS [address] [place] [address] Gallo Flores MD [address] [place], [place] [phone] Transaminitis (Primary Dx) Social History Tobacco Use [...] documented as of this encounter Care Teams Warehouse Supervisor Relationship Specialty Start Date End Date Gallo Flores MD [address] [place] [address] PCP - General Internal Medicine 06/30/11 documented as of this encounter
--- OUTSIDE RECORDS SUMMARY | 2024-10-17 15:48 | XMS_ITS | Patient Health Record ---
Author Organization [facility] Address [address] [place] [address] Care Team Providers Care Whipped Topping Finisher Name Role Phone alessandra quesada Primary Care Provider UnavailJewel Ruelas Jr Unavailable Reason For Referral No Information Plan Of Treatment No Information Insurance Providers Payer Name Payer Address Payer Phone Subscriber Number Group Number Insured Name Patient Relationship to Insured Coverage Start Date Coverage End Date MEDICARE [place] [address] [place] [address] [id number] SANDIE AKERS Self - patient is the insured MEDICAID OF [facility] [address] [place] [address] [id number] SANDIE AKERS Self - patient is the insured
== END 2024-10-17 15:32 | disposition home or self-care (01) ==
LOC: HO.HPS 14:56
PROVIDERS: PCP Internal Medicine; Visit Provider Internal Medicine
DX: J44.9 Chronic obstructive pulmonary disease, unspecified (principal); J61 Pneumoconiosis due to asbestos and other mineral fibers; J84.10 Pulmonary fibrosis, unspecified; J96.91 Respiratory failure, unspecified with hypoxia; I48.0 Paroxysmal atrial fibrillation
CPT/HCPCS: 99214

== ENCOUNTER → 2024-10-17 14:56 | Outpatient (BNVA) | payer OTHER, SELFPAY | PROVIDERS: PCP Internal Medicine; Visit Provider Internal Medicine | DX: I48.0 Paroxysmal atrial fibrillation (principal); J96.91 Respiratory failure, unspecified with hypoxia; J44.9 Chronic obstructive pulmonary disease, unspecified; J61 Pneumoconiosis due to asbestos and other mineral fibers; J84.10 Pulmonary fibrosis, unspecified | CPT/HCPCS: 99212 ==

== ENCOUNTER 2024-10-18 14:27 | Outpatient (REF) | payer OTHER, SELFPAY ==
[2024-10-18 15:31] LABS: MANUAL DIFF FLAG NO
[2024-10-18 15:35] LABS: Hematocrit 40.5 % (42.0-52.0); Hemoglobin 12.7 g/dl (14.0-18.0); Imm Gran Abs Auto 0.02 X10*3/uL (0.00-0.03); Imm Gran Pct Auto 0.3 % (0.0-0.4); Lymphocytes Absolute Auto 2.2 X10*3/uL (1.2-4.9); Mean Corpuscular HGB Conc 31.4 g/dl (31.0-36.0); Mean Corpuscular Hemoglobin 26.2 pg (27.0-33.0); Mean Corpuscular Volume 83.5 fL (80.0-98.0); NRBC Abs Auto 0.000 X10*3/uL (0.0-0.012); NRBC Pct Auto 0.0 /100WBC (0.0-0.2); Platelet Count 281 X10*3/uL (160-400); Red Blood Count 4.85 X10*6/uL (4.60-5.80); White Blood Count 6.6 X10*3/uL (4.8-10.8)
[2024-10-18 15:40] LABS: INTERNATIONAL NORM RATIO 1.2 (0.9-1.1); Prothrombin Time 14.2 SEC (10.9-12.4)
[2024-10-18 16:29] LABS: Anion Gap 12 (12-20); Blood Urea Nitrogen 29 mg/dL (9-16); Calcium 9.9 mg/dL (8.4-10.2); Carbon Dioxide 24 mmol/L (22-29); Chloride 110 mmol/L (96-108); Estimated Glomerular Filt Rate 36; Iron 52 mcg/dL (45-160); Percent Iron Saturation 26 % (15-50); Potassium 4.5 mmol/L (3.3-5.1); Sodium 141 mmol/L (135-145); Total Iron Binding Capacity 199 mcg/dL (228-428); Unsaturated Iron Binding 147 ug/dL
[2024-10-18 16:53] LABS: Ferritin 213 ng/mL (20-250)
[2024-10-19 08:25] LABS: HBS Num1 137.86 mIU/mL (0-7.99); ~Hepatitis B Surface Antibody REACTIVE (Nonreactive)
== END 2024-10-18 14:28 | disposition home or self-care (01) ==
LOC: HO.LAB 14:27
PROVIDERS: Absent Provider Nurse Practitioner Family; PCP Internal Medicine; Visit Provider Internal Medicine Nephrology
DX: I12.9 Hypertensive chronic kidney disease with stage 1 through stage 4 chronic kidney disease, or unspecified chronic kidney disease (principal); N18.32 Chronic kidney disease, stage 3b; D50.9 Iron deficiency anemia, unspecified; N17.9 Acute kidney failure, unspecified; J84.9 Interstitial pulmonary disease, unspecified; R74.01 Elevation of levels of liver transaminase levels; R60.0 Localized edema; Z79.899 Other long term (current) drug therapy
CPT/HCPCS: 36415; 80048; 82728; 82784; 83540; 85025; 85610; 86706; 99212

== ENCOUNTER 2024-10-18 14:27 | Outpatient (AMB) | payer OTHER, SELFPAY ==
--- NOTE | 2024-10-18 14:43 | HO.NEPHOV ---
Vital Signs 10/18/24 14:46 Height 5 ft 4 in Weight 166 lb BMI 28.5 BP 130/60 Blood Pressure Location Rt brachial Pulse 74 Pulse Source Pulse Oximeter Pulse Oximetry (%) 92 Oxygen Delivery Method Room Air Intake Visit Reasons: [facility] ER 10/11/24 Call Center Support Consultant Required: Yes Call Center Support Consultant Language: Machine Printer Hose Services: Call Center Support Consultant Offered & Declined ([facility] [place] Support Consultant services refused ) Accompanied by: Other Relationship Allergies No Known Allergies Allergy (Verified 10/18/24 14:46) [facility] Medical History (Updated 10/17/24 @ 15:44 by Lorin Perry MD) Paroxysmal atrial fibrillation Respiratory failure with hypoxia Nocturnal hypoxemia Pulmonary fibrosis Pulmonary asbestosis COPD (chronic obstructive pulmonary disease) Social History Patient Tobacco Use Status: Never used Tobacco Results Reviewed Nephrology Results: Hgb, (14.0-18.0) 11.7 g/dl L 03/20/24 WBC, (4.8-10.8) 8.2 X10*3/uL 03/20/24 Plt Count, (160-400) 267 X10*3/uL 03/20/24 Sodium, (135-145) 138 mmol/L 09/13/24 Potassium, (3.3-5.1) 4.6 mmol/L 09/13/24 Chloride, (96-108) 108 mmol/L 09/13/24 Carbon Dioxide, (22-29) 24 mmol/L 09/13/24 BUN, (9-16) 24 mg/dL H 09/13/24 Creatinine, (0.5-1.4) 1.92 mg/dL H 09/13/24 Calcium, (8.4-10.2) 10.2 mg/dL 09/13/24 Coding
[2024-10-18 14:46] VITALS: BP 130/60; PULSE 74; O2SAT 92; BMI 28.5
--- NOTE | 2024-10-18 14:49 | HO.NEPHOV_ITS ---
Vital Signs 10/18/24 14:46 Height 5 ft 4 in Weight 166 lb BMI 28.5 BP 130/60 Blood Pressure Location Rt brachial Pulse 74 Pulse Source Pulse Oximeter Pulse Oximetry (%) 92 Oxygen Delivery Method Room Air Intake Visit Reasons: [facility] ER 10/11/24 Allergies No Known Allergies Allergy (Verified 10/18/24 14:46) HPI Comments Details: Karri is followed by Dr Betts for CKD with chronic iron deficiency anemia, interstitial lung disease, HTN. He does not take NSAIDs. Here for hospital follow up. Was in the [facility] 10/11-10/14 for x3 days of cough with hemoptysis. Has underlying ILD for which he is followed by pulmonology at [facility]. Was diagnosed wtih CAP and was treated with IV antibiotics. His hemoptysis resolved with nebulizer treatment per notes. Of note, had CT angio to rule out PE on 10/11/24. Creatinine 1.74 on 10/11/24. 10/14/24 (discharge), creatinine is 2.61. Patient was instructed to continue home medications, including losartan, torsemide and dapagliflozin on discharge. he states he has been feeling well since his discharge from the hospital. He denies cough, hemotpysis, chest pain, shortness of breath, abdominal pain, flank pain, reports normal urine output without urinary symptoms. Reports some chronic, mild LE edema for which he takes torsemide. Reports he has been taking his outpatient medication as prescribed. [facility] Medical History (Updated 10/18/24 @ 15:04 by Bethany Espinoza DNP, INFORMATICS PHYSICIAN-) Paroxysmal atrial fibrillation Respiratory failure with hypoxia Nocturnal hypoxemia Pulmonary fibrosis Pulmonary asbestosis COPD (chronic obstructive pulmonary disease) Social History Patient Tobacco Use Status: Never used Tobacco Review of Systems Const All systems reviewed & are unremarkable except as noted in HPI and below Physical Exam Vital Signs: Last Vital Signs Pulse 74 10/18/24 14:46 BP 130/60 10/18/24 14:46 Pulse Ox 92 10/18/24 14:46 Oxygen Delivery Method Room Air 10/18/24 14:46 BMI result Body Mass Index 28.5 Const General: comfortable and alert Resp Effort & Inspection: normal respiratory effort and able to speak in complete sentences Auscultation: rhonchi Cardio Jugular venous distension: no JVD Rate: regular rate Rhythm: regular rhythm Heart sounds: S1 normal heart sound present, S2 normal heart sound present and Murmur heart sound present GI Palpation (GI): Soft to palpation and nontender General: Yes no CVA tenderness Back/Spine/Pelvis Back: no CVA tenderness Skin Rashes: rash noted Extrem General: Yes edema (trace BLE edema, pitting. ) Results Reviewed Nephrology Results: Hgb, (14.0-18.0) 12.7 g/dl L Today WBC, (4.8-10.8) 6.6 X10*3/uL Today Plt Count, (160-400) 281 X10*3/uL Today Sodium, (135-145) 138 mmol/L 09/13/24 Potassium, (3.3-5.1) 4.6 mmol/L 09/13/24 Chloride, (96-108) 108 mmol/L 09/13/24 Carbon Dioxide, (22-29) 24 mmol/L 09/13/24 BUN, (9-16) 24 mg/dL H 09/13/24 Creatinine, (0.5-1.4) 1.92 mg/dL H 09/13/24 Calcium, (8.4-10.2) 10.2 mg/dL 09/13/24 Assessment & Plan Assessment & Plan (1) Hypertension: Code(s): I10 - Essential (primary) hypertension Category: Medical Qualifiers: Hypertension type: primary hypertension Qualified Code(s): I10 - Essential (primary) hypertension (2) CKD (chronic kidney disease) stage 3, GFR 30-59 ml/min: Code(s): N18.30 - Chronic kidney disease, stage 3 unspecified Category: Medical Qualifiers: Chronic kidney disease stage 3 subtype: stage 3b (GFR 30-44) Qualified Code(s): N18.32 - Chronic kidney disease, stage 3b (3) MIRZA (acute kidney injury): Code(s): N17.9 - Acute kidney failure, unspecified Category: Medical Plan MIRZA on CKD likely contrast nephropathy from CT angio while hospitalized Advised patient to please get blood work done today- if creatinine is improving, will continue home medications; if creatinine is worsening, will hold losartan and possibly torsemide as well. Discussed importance of avoiding NSAIDs, low salt diet, regular physical activity, adequate hydration. Patient will get lab work today and follow up with Dr Betts in 2 weeks, no other changes today. Questions answered. Discussed with Dr Betts. Orders: Orders Basic Metabolic Panel Today N17.9 - Acute kidney failure, unspecified, N18.30 - Chronic kidney disease, stage 3 unspecified Coding Level of Care Code Est Pt Level 4 (23750) Diagnoses Primary hypertension I10 Hypertension type: primary hypertension Stage 3b chronic kidney disease N18.32 Chronic kidney disease stage 3 subtype: stage 3b (GFR 30-44) MIRZA (acute kidney injury) N17.9
--- NOTE | 2024-10-18 14:55 | HO.NEPHOV ---
Vital Signs 10/18/24 14:46 Height 5 ft 4 in Weight 166 lb BMI 28.5 BP 130/60 Blood Pressure Location Rt brachial Pulse 74 Pulse Source Pulse Oximeter Pulse Oximetry (%) 92 Oxygen Delivery Method Room Air Intake Visit Reasons: [facility] ER 10/11/24 Laundry Or Dry Cleaners Counter Clerk Required: Yes Laundry Or Dry Cleaners Counter Clerk Language: Medical Office Assistant Services: Laundry Or Dry Cleaners Counter Clerk Present Laundry Or Dry Cleaners Counter Clerk Name: [id number] Information Interpreted: clinical only Allergies No Known Allergies Allergy (Verified 10/18/24 14:46) [facility] Medical History (Updated 10/18/24 @ 15:04 by Bethany Espinoza DNP, CERTIFIED DIETARY MANAGER-BC) Paroxysmal atrial fibrillation Respiratory failure with hypoxia Nocturnal hypoxemia Pulmonary fibrosis Pulmonary asbestosis COPD (chronic obstructive pulmonary disease) Social History Patient Tobacco Use Status: Never used Tobacco Physical Exam Vital Signs: Last Vital Signs Pulse 74 10/18/24 14:46 BP 130/60 10/18/24 14:46 Pulse Ox 92 10/18/24 14:46 Oxygen Delivery Method Room Air 10/18/24 14:46 BMI result Body Mass Index 28.5 Results Reviewed Nephrology Results: Hgb, (14.0-18.0) 12.7 g/dl L Today WBC, (4.8-10.8) 6.6 X10*3/uL Today Plt Count, (160-400) 281 X10*3/uL Today Sodium, (135-145) 138 mmol/L 09/13/24 Potassium, (3.3-5.1) 4.6 mmol/L 09/13/24 Chloride, (96-108) 108 mmol/L 09/13/24 Carbon Dioxide, (22-29) 24 mmol/L 09/13/24 BUN, (9-16) 24 mg/dL H 09/13/24 Creatinine, (0.5-1.4) 1.92 mg/dL H 09/13/24 Calcium, (8.4-10.2) 10.2 mg/dL 09/13/24 Assessment & Plan Assessment & Plan (1) Hypertension: Code(s): I10 - Essential (primary) hypertension Category: Medical Qualifiers: Hypertension type: primary hypertension Qualified Code(s): I10 - Essential (primary) hypertension (2) CKD (chronic kidney disease) stage 3, GFR 30-59 ml/min: Code(s): N18.30 - Chronic kidney disease, stage 3 unspecified Category: Medical Qualifiers: Chronic kidney disease stage 3 subtype: stage 3b (GFR 30-44) Qualified Code(s): N18.32 - Chronic kidney disease, stage 3b Orders: Orders Basic Metabolic Panel Today N17.9 - Acute kidney failure, unspecified, N18.30 - Chronic kidney disease, stage 3 unspecified Coding Diagnoses Primary hypertension I10 Hypertension type: primary hypertension Stage 3b chronic kidney disease N18.32 Chronic kidney disease stage 3 subtype: stage 3b (GFR 30-44)
--- OUTSIDE RECORDS SUMMARY | 2024-10-18 15:09 | XMS_ITS | Clinical Summary ---
Author Organization [facility] Address [address] [place] [address] Phone Care Team Providers Care Slot Operations Director Name Role Phone Gallo Flores MD Primary [...] to complete this topic Insurance [address] [place] [address] [facility] ([id number]) [facility] ([id number]) Care Teams Slot Operations Director Relationship Specialty Start Date End Date Gallo Flores MD PCP - General 04/01/20
--- OUTSIDE RECORDS SUMMARY | 2024-10-18 15:09 | XMS_ITS | Patient Health Record ---
Author Organization [facility] Address [address] [place] [address] Care Team Providers Care Steel Heater Name Role Phone alessandra quesada Primary Care Provider UnavailJewel Ruelas Jr Unavailable [phone] Reason For Referral No Information Plan Of Treatment No Information Insurance Providers Payer Name Payer Address Payer Phone Subscriber Number Group Number Insured Name Patient Relationship to Insured Coverage Start Date Coverage End Date [place] [address] [place] [address] [id number] SANDIE AKERS Self - patient is the insured MEDICAID OF [facility] [address] [place] [address] [id number] SADNIE AKERS Self - patient is the insured
--- OUTSIDE RECORDS SUMMARY | 2024-10-18 15:09 | XMS_ITS | Clinical Summary ---
Author Organization [address] [facility] Address [address] [place] [address] Phone Care Team Providers Care Tire Buffer Name Role Phone Nadeen Chris [facility] Primary Care Provider [phone] Social History Tobacco Use Types Packs/Day Years Used Date Smoking Tobacco: Never Assessed Sex and Gender Information Value Date Recorded Sex Assigned at Not on file Legal Sex Male 7:20 AM EDT Gender Identity Not on file Sexual Orientation Not on file Plan of Treatment Upcoming Encounters Date Type Department Care Team ([facility] st Contact Info) Description 11/07/2024 10:30 AM EDT Consult Orthopedic Surgery - [place] [id number] [phone] Bernard Stein, DPM [address] [address] Health Maintenance Due Date Last Done Comments [...] patient's age to complete this topic Insurance [facility] OPTIONS Member Subscriber Plan / Payer (Ef fective 2024-Present) Name:Karri Huntley Relation to Subscriber:Self Name:Karri Huntley Payer ID:[id number] Group ID:Not on file Type:Not on file Address: [facility] [address] [id number] Care Teams Tire Buffer Relationship Specialty Start Date End Date Nadeen Chris FNP [address] [place] [address] PCP - General Family Medicine 08/09/24
--- OUTSIDE RECORDS SUMMARY | 2024-10-18 15:09 | XMS_ITS | Encounter Summary ---
Author Organization [facility] Address [address] [facility] 7t [place] [address] Care Team Providers Care Utilities Estimator And Drafter Name Role Phone Gallo Flores MD Primary Care Provider [phone] Reason for Referral * Imaging (Routine) - Authorized Specialty Diagnoses / Procedures Referred By Clementina nichols Referred To Contact Radiology Diagnoses Transaminitis Procedures US Abdomen Comp w elastography Gallo Flores MD [address] [place] [address] Phone: tel: fax: [address] Phone: tel: fax: Referral ID Status Reason Start Date Expiration Date V isits Requested Visits Authorized [id number] Authorized 09/14/2024 09/14/2025 1 1 Encounter Details Date Type Department Care Team (Late st Contact Info) Description 09/14/2024 Orders Only [facility] CHC MED & PEDS [address] [place] [address] Gallo Flores MD [address] [place], [place] [phone] Transaminitis (Primary Dx) Social History Tobacco Use [...] documented as of this encounter Care Teams Utilities Estimator And Drafter Relationship Specialty Start Date End Date Gallo Flores MD [address] [place] [id number] PCP - General Internal Medicine 06/30/11 documented as of this encounter
== END 2024-10-18 15:04 | disposition home or self-care (01) ==
LOC: HO.HKA 14:28
PROVIDERS: PCP Internal Medicine; Visit Provider Internal Medicine Nephrology
DX: I10 Essential (primary) hypertension (principal); N18.32 Chronic kidney disease, stage 3b; N17.9 Acute kidney failure, unspecified
CPT/HCPCS: 99214

== ENCOUNTER 2024-10-23 08:40 | Outpatient (REF) | payer OTHER, SELFPAY ==
--- OUTSIDE RECORDS SUMMARY | 2024-10-23 09:01 | XMS_ITS | Clinical Summary ---
Author Organization [facility] Address [address] [facility] [address] [place] [address] Phone Care Team Providers Care Fpga Engineer Name Role Phone Gallo Flores MD Primary [...] to complete this topic Insurance [address] [place] [address] [facility] ([id number]) [facility] ([id number]) Care Teams Fpga Engineer Relationship Specialty Start Date End Date Gallo Flores MD PCP - General 04/01/20
--- OUTSIDE RECORDS SUMMARY | 2024-10-23 09:01 | XMS_ITS | Clinical Summary ---
Author Organization 175 [facility] Address [address] [place] [address] Phone Care Team Providers Care Drop Pit Worker Name Role Phone Nadeen Chris [facility] Primary Care Provider [phone] Social History Tobacco Use Types Packs/Day Years Used Date Smoking Tobacco: Never Assessed Sex and Gender Information Value Date Recorded Sex Assigned at Not on file Legal Sex Male 7:20 AM EDT Gender Identity Not on file Sexual Orientation Not on file Plan of Treatment Upcoming Encounters Date Type Department Care Team ([facility] st Contact Info) Description 11/07/2024 10:30 AM EDT Consult Orthopedic Surgery - [place] [address] [phone] Bernard Stein, DPM [address] [address] Health Maintenance Due Date Last Done Comments [...] Insurance [facility] DETENTION OPTIONS Member Subscriber Plan / Payer (Ef fective 2024-Present) Name:Karri Huntley Relation to Subscriber:Self Name:Karri Huntley Payer ID:[id number] Group ID:Not on file Type:Not on file Address: [facility] [address] [address] Care Teams Drop Pit Worker Relationship Specialty Start Date End Date Nadeen Chris FNP [address] [place] [address] PCP - General Family Medicine 08/09/24
--- OUTSIDE RECORDS SUMMARY | 2024-10-23 09:01 | XMS_ITS | Encounter Summary ---
Author Organization [facility] Address [address] [facility] 7t [place] [address] Care Team Providers Care Nursing Informatics Clinical Analyst Name Role Phone Gallo Flores MD Primary Care Provider [phone] Reason for Referral * Imaging (Routine) - Authorized Specialty Diagnoses / Procedures Referred By Clementina nichols Referred To Contact Radiology Diagnoses Transaminitis Procedures US Abdomen Comp w elastography Gallo Flores MD [address] [place] [address] Phone: tel: fax: [address] Phone: tel: fax: Referral ID Status Reason Start Date Expiration Date V isits Requested Visits Authorized [id number] Authorized 09/14/2024 09/14/2025 1 1 Encounter Details Date Type Department Care Team (Late st Contact Info) Description 09/14/2024 Orders Only [facility] CHC MED & PEDS [address] [place] [address] Gallo Flores MD [address] [place], [place] [phone] Transaminitis (Primary Dx) Social History Tobacco Use [...] Routine Transaminitis Expected: 09/14/2024 (Approximate), Expires: 09/14/2025 Ferritin Lab Routine Transaminitis Expected: 09/14/2024, Expires: 09/14/2025 Iron And Total Iron Binding Capacity Lab Routine Transaminitis Expected: 09/14/2024, Expires: 09/14/2025 Alpha 1 Antitrypsin Lab Routine Transaminitis Expected: 09/14/2024 (Approximate), Expires: 09/14/2025 US Abdomen Comp w elastography Imaging Routine Transaminitis Expected: 09/14/2024, Expires: 09/14/2025 documented as of this encounter Procedures Procedure Name Priority Date/Time Associated Diagnosis Comments HEPATITIS B SURFACE ANTIBODY, QUALITATIVE Routine 10/18/2024 3:30 PM EDT Transaminitis PROTHROMBIN TIME-INR Routine 10/18/2024 3:30 PM EDT Transaminitis IMMUNOGLOBULINS, QUANTITATIVE, IGA, IGG, IGM Routine 10/18/2024 3:30 PM EDT Transaminitis documented in this encounter Results * Hepatitis B Surface Antibody, Qualitative (10/18/2024 3:30 PM EDT) ~Hepatitis B Surface Antibody REACTIVE Nonreactive [facility] Comment:REACTIVE: > 11.99 mI U/mL Blood Venous blood specimen / Unknown 10/18/2024 3:30 PM EDT 10/18/2024 3:30 PM EDT Gallo Flores MD LAB BLOOD ORDERABLES Final Result [facility] [address] [place] [address] [phone] * (ABNORMAL) Prothrombin Time-INR (10/18/2024 3:30 PM EDT) Prothrombin Time 14.2(H) 10.9 - 12.4 SEC [facility] INTERNATIONAL NORM RATIO 1.2(H) 0.9 - 1.1 [facility] Comment:INTERNATIONAL NORMAL IZED RATIO (INR) REFERENCE RANGES Reference RangeFor patients not on anticoagulant therapy: 0.9 - 1.1INR ranges for oral anticoagulanttherapy:For prevention and treatment of venous thrombosis and pulmonary embolism: 2.0 - 3.0For acute myocardial infarction with aspirin therapy: 2.0 - 3.0For acute myocardial infarction without aspirin therapy: 3.0 - 4.0For patients with mechanical prosthetic heart valves: 2.5 - 3.5 Blood Venous blood specimen / Unknown 10/18/2024 3:30 PM EDT 10/18/2024 3:30 PM EDT us Gallo Flores MD LAB BLOOD ORDERABLES Final Result Performing Organization Address [facility] Co de Phone Number [facility] [address] [place] [phone] * (ABNORMAL) Immunoglobulins, Quantitative, IgA, IgG, IgM (10/18/2024 3:30 PM EDT) IMMUNOGLOBULIN G 2626(A) 600 - 1540 mg/dL [facility] IMMUNOGLOBULIN A 611(A) 70 - 320 mg/dL [facility] Immunoglobulin M 139 50 - 300 mg/dL [facility] Comment:THIS TEST WAS PERFOR MED AT:[facility] [place] [phone] BULLARD MD Blood Venous blood specimen / Unknown 10/18/2024 3:30 PM EDT 10/18/2024 3:30 PM EDT us Gallo Flores MD LAB BLOOD ORDERABLES Final Result Performing Organization Address [facility] Co de Phone Number [facility] [address] [place] [phone] documented in this encounter Visit Diagnoses Diagnosis Transaminitis- Primary Nonspecific elevation of levels of transaminase or lactic acid dehydrogenase (LDH) documented in this encounter Additional Health Concerns Assessment Noted Time PHQ-9 Depression Total Score: 0 09/14/19 25 11:20 AM EDT documented as of this encounter Care Teams Nursing Informatics Clinical Analyst Relationship Specialty Start Date End Date Gallo Flores MD [address] [place] [address] PCP - General Internal Medicine 06/30/11 documented as of this encounter
--- OUTSIDE RECORDS SUMMARY | 2024-10-23 09:02 | XMS_ITS | Patient Health Record ---
Author Organization [facility] Address [address] [place] [address] Care Team Providers Care Hospitalist Name Role Phone alessandra quesada Primary Care Provider UnavailJewel Ruelas Jr Unavailable Reason For Referral No Information Plan Of Treatment No Information Insurance Providers Payer Name Payer Address Payer Phone Subscriber Number Group Number Insured Name Patient Relationship to Insured Coverage Start Date Coverage End Date MED[place]ARE OF [place] [address] [place] [address] [id number] SANDIE AKERS Self - patient is the insured MEDICAID OF [facility] [address] [place] [address] [id number] SANDIE AKERS Self - patient is the insured
[2024-10-23 10:53] LABS: Anion Gap 8 (12-20); Blood Urea Nitrogen 20 mg/dL (9-16); Carbon Dioxide 27 mmol/L (22-29); Chloride 109 mmol/L (96-108); Estimated Glomerular Filt Rate 41; Potassium 4.1 mmol/L (3.3-5.1); Sodium 140 mmol/L (135-145)
== END 2024-10-23 08:41 | disposition home or self-care (01) ==
LOC: HO.LAB 08:40
PROVIDERS: Visit Provider Internal Medicine Nephrology
DX: I12.9 Hypertensive chronic kidney disease with stage 1 through stage 4 chronic kidney disease, or unspecified chronic kidney disease (principal); N18.32 Chronic kidney disease, stage 3b; E61.1 Iron deficiency; R80.8 Other proteinuria
CPT/HCPCS: 36415; 80051; 82565; 84520

== ENCOUNTER 2024-11-10 10:10 | Outpatient (AMB) | payer OTHER, SELFPAY ==
--- OUTSIDE RECORDS SUMMARY | 2024-11-10 10:15 | XMS_ITS | Patient Health Record ---
Author Organization [facility] Address [address] [place] [address] Care Team Providers Care Component Engineer Name Role Phone alessandra quesada Primary Care Provider UnavailJewel Ruelas Jr Unavailable [phone] Reason For Referral No Information Plan Of Treatment No Information Insurance Providers Payer Name Payer Address Payer Phone Subscriber Number Group Number Insured Name Patient Relationship to Insured Coverage Start Date Coverage End Date MEDICARE OF [place] [address] [place] [address] [id number] SANDIE AKERS Self - patient is the insured MEDICAID OF [facility] [address] [place] [address] [id number] SANDIE AKERS Self - patient is the insured
--- OUTSIDE RECORDS SUMMARY | 2024-11-10 10:15 | XMS_ITS | Encounter Summary ---
Author Organization [facility] Address [address] [facility] 7t [place] [address] Care Team Providers Care Water Resource Project Manager Name Role Phone Gallo Flores MD Primary Care Provider [phone] Reason for Referral * Imaging (Routine) - Authorized Specialty Diagnoses / Procedures Referred By Clementina nichols Referred To Contact Radiology Diagnoses Transaminitis Procedures US Abdomen Comp w elastography Gallo Flores MD [address] [place] [address] Phone: tel: fax: [address] Phone: tel: fax: Referral ID Status Reason Start Date Expiration Date V isits Requested Visits Authorized [id number] Authorized 09/14/2024 09/14/2025 1 1 Encounter Details Date Type Department Care Team (Late st Contact Info) Description 09/14/2024 Orders Only [facility] [address] [place] [address] Gallo Flores MD [address] [place], [place] [phone] Transaminitis (Primary Dx) Social History Tobacco Use [...] EDT) ~Hepatitis B Surface Antibody REACTIVE Nonreactive [facility] Comment:REACTIVE: > 11.99 mI U/mL Blood Venous blood specimen / Unknown 10/18/2024 3:30 PM EDT 10/18/2024 3:30 PM EDT Gallo Flores MD LAB BLOOD ORDERABLES Final Result [facility] [address] [place] [address] [phone] * (ABNORMAL) Prothrombin Time-INR (10/18/2024 3:30 PM EDT) Prothrombin Time 14.2(H) 10.9 - 12.4 SEC [facility] INTERNATIONAL NORM RATIO 1.2(H) 0.9 - 1.1 [facility] Comment:INTERNATIONAL NORMAL IZED RATIO (INR) [...] BLOOD ORDERABLES Final Result Performing Organization Address [facility] Co de Phone Number [facility] [address] [place] [phone] * (ABNORMAL) Immunoglobulins, Quantitative, IgA, IgG, IgM (10/18/2024 3:30 PM EDT) IMMUNOGLOBULIN G 2626(A) 600 - 1540 mg/dL [facility] IMMUNOGLOBULIN A 611(A) 70 - 320 mg/dL [facility] Immunoglobulin M 139 50 - 300 mg/dL [facility] Comment:THIS TEST WAS PERFOR MED AT:[address] [place] [phone] BULLARD MD Blood Venous blood specimen / Unknown 10/18/2024 3:30 PM EDT 10/18/2024 3:30 PM EDT us Gallo Flores MD LAB BLOOD ORDERABLES Final Result Performing Organization Address [facility] Co de Phone Number [facility] [address] [place] [phone] documented in this encounter Visit Diagnoses Diagnosis Transaminitis- Primary Nonspecific elevation of levels of transaminase or lactic acid dehydrogenase (LDH) documented in this encounter Additional Health Concerns Assessment Noted Time PHQ-9 Depression Total Score: 0 09/14/19 25 11:20 AM EDT documented as of this encounter Care Teams Water Resource Project Manager Relationship Specialty Start Date End Date Gallo Flores MD [address] [place] [phone] PCP - General Internal Medicine 06/30/11 [employer] 10/15/24 documented as of this encounter
--- OUTSIDE RECORDS SUMMARY | 2024-11-10 10:15 | XMS_ITS | Clinical Summary ---
Author Organization [facility] Address [address] [place] [address] [place] [address] Phone Care Team Providers Care Mainspring Winder And Oiler Name Role Phone Gallo Flores MD Primary [...] to complete this topic Insurance [address] [place] [address] [facility] ([id number]) [facility] ([id number]) Care Teams Mainspring Winder And Oiler Relationship Specialty Start Date End Date Gallo Flores MD PCP - General 04/01/20
--- OUTSIDE RECORDS SUMMARY | 2024-11-10 10:15 | XMS_ITS | Clinical Summary ---
Author Organization [facility] Address [address] [place] [address] Phone Care Team Providers Care Dog Trainer Name Role Phone Nadeen Chris [facility] Primary Care Provider [phone] Allergies No known active allergies Medications clotrimazole (LOTRIMIN) 1 % cream Apply topically 2 (two) times a day. 30 g 3 5 12/08/19 25 Active Encounters Date Type Department Care Team Description 11/07/2024 10:30 AM EDT Consult Orthopedic Surgery [facility] [address] [phone] Bernard Stein DPM Dermatophytosis of nail (Primary Dx); Pain in right foot; Pain in toe of right foot; Pain in toe of left foot; Corns and callosities; Metatarsalgia of both feet; Acquired hammer toe of right foot; Hammer toe of left foot; Difficulty walking [R26.2] from Last 3 Months Social History Tobacco Use Types Packs/Day Years Used Date Smoking Tobacco: Never Assessed Sex and Gender Information Value Date Recorded Sex Assigned at Not on file Legal Sex Male 7:20 AM EDT Gender Identity Not on file Sexual Orientation Not on file Plan of Treatment Upcoming Encounters Date Type Department Care Team ([facility] Contact Info) Description 01/09/2025 10:30 AM EDT Office Visit Orthopedic Surgery [facility] [address] [phone] Bernard Stein DPM [address] [phone] Health Maintenance Due Date Last Done Comments Zoster Vaccines (2 of 3) 07/13/2016 05/18/2016 RSV Immunization Adult Patients (1 - 1-dose 75+ series) 09/11/2019 Depression Screening 03/22/2024 COVID-19 Vaccine (4 - 2023- season) 2024 12/30/2023, 05/30/2020, 05/03/2020 Falls Risk Assessment 08/09/2024 Lung Cancer Screening (Low Dose CT) 08/09/2024 Medicare Annual Wellness Visit 08/09/2024 Social Influencers of Health Screening 08/09/2024 Influenza Vaccine (#1) 2024 , 01/18/2023, 01/12/2022, Additional history exists Hypertension/CHF/CAD Annual BMP Blood Test 09/13/2025 09/13/2024 DTaP,Tdap,and Td Vaccines (2 - Td or Tdap) 05/18/2026 05/18/2016 Cholesterol Screening (Lipid Panel) 09/13/2029 09/13/2024 Pneumococcal Vaccine: 50+ Years Completed 01/27/2019, 05/18/2016 HIB Vaccines Aged Out No longer eligi [...] to complete this topic RSV Immunization Patients Under 20 months Aged Out No longer eligible based on patient's age to complete this topic Varicella Vaccines Aged Out No longer eligible based on patient's age to complete this topic Insurance [facility] [employer] Member Subscriber Plan / Payer (Ef fective 2024-Present) Name:Karri Huntley Relation to Subscriber:Self Name:Karri Huntley Payer ID:[id number] Group ID:Not on file Type:Not on file Address: [place] [address] [address] [address] Care Teams Dog Trainer Relationship Specialty Start Date End Date Nadeen Chris FNP [address] [place] [phone] PCP - General Family Medicine 08/09/24
--- NOTE | 2024-11-10 10:20 | HO.NEPHOV ---
Vital Signs 11/10/24 10:21 Height 5 ft 4 in Weight 167 lb 4 oz BMI 28.7 BP 144/60 H Blood Pressure Location Rt brachial Position Sitting Pulse 62 Pulse Source Pulse Oximeter Pulse Oximetry (%) 94 Oxygen Delivery Method Room Air Intake Visit Reasons: FU-LVM Complaint Evaluation Supervisor Required: Yes Complaint Evaluation Supervisor Language: Snuff Grinder And Screener Services: Complaint Evaluation Supervisor Offered & Declined ([facility] Complaint Evaluation Supervisor services refused ) Accompanied by: Other Relationship Allergies No Known Allergies Allergy (Verified 11/10/24 10:21) HPI Comments Details: Karri was seen in F/U for CKD and HTN. He has interstitial lung disease. He recently was in the [facility] 10/11-10/14 for x3 days of cough with hemoptysis. Has underlying ILD for which he is followed by pulmonology at [facility]. Was diagnosed wtih CAP and was treated with IV antibiotics. His hemoptysis resolved with nebulizer treatment per notes. Of note, had CT angio to rule out PE on 10/11/24. Creatinine 1.74 on 10/11/24. 10/14/24 (discharge), creatinine is 2.61. Patient was instructed to continue home medications, including losartan, torsemide and dapagliflozin on discharge. He has been feeling well since his discharge from the hospital. He denies cough, hemotpysis, chest pain, shortness of breath, abdominal pain, flank pain, reports normal urine output without urinary symptoms. Reports some chronic, mild LE edema for which he takes torsemide. There were no new complaints at the time of this office visit [facility] Medical History (Updated 10/18/24 @ 15:04 by Bethany Espinoza, MARIANNE, STUDENT DEVELOPMENT DEAN-BC) Paroxysmal atrial fibrillation Respiratory failure with hypoxia Nocturnal hypoxemia Pulmonary fibrosis Pulmonary asbestosis COPD (chronic obstructive pulmonary disease) Social History Patient Tobacco Use Status: Never used Tobacco Review of Systems Const All systems reviewed & are unremarkable except as noted in HPI and below Physical Exam Vital Signs: Last Vital Signs Pulse 62 11/10/24 10:21 BP 144/60 H 11/10/24 10:21 Pulse Ox 94 11/10/24 10:21 Oxygen Delivery Method Room Air 11/10/24 10:21 BMI result Body Mass Index 28.7 Const General: comfortable and no acute distress Orientation/consciousness: patient oriented x3 HEENT Head: Yes normocephalic Mouth: Normal oral and palatal mucosa present Eyes EOM: EOMs intact bilaterally Neck Neck: Yes supple Resp Auscultation: clear to auscultation bilaterally Cardio Jugular venous distension: no JVD Rate: regular rate GI Palpation (GI): Soft to palpation Auscultation: normal bowel sounds General: Yes no CVA tenderness Back/Spine/Pelvis Back: no CVA tenderness Skin General skin exam: no rashes or lesions noted Neuro General: patient oriented x3 and moves all extremities Extrem General: Yes no pedal edema Results Reviewed Nephrology Results: Hgb, (14.0-18.0) 12.7 g/dl L 10/18/24 WBC, (4.8-10.8) 6.6 X10*3/uL 10/18/24 Plt Count, (160-400) 281 X10*3/uL 10/18/24 Sodium, (135-145) 140 mmol/L 10/23/24 Potassium, (3.3-5.1) 4.1 mmol/L 10/23/24 Chloride, (96-108) 109 mmol/L H 10/23/24 Carbon Dioxide, (22-29) 27 mmol/L 10/23/24 BUN, (9-16) 20 mg/dL H 10/23/24 Creatinine, (0.5-1.4) 1.62 mg/dL H 10/23/24 Calcium, (8.4-10.2) 9.9 mg/dL 10/18/24 Assessment & Plan Assessment & Plan (1) CKD (chronic kidney disease) stage 3, GFR 30-59 ml/min: Code(s): N18.30 - Chronic kidney disease, stage 3 unspecified Category: Medical Qualifiers: Chronic kidney disease stage 3 subtype: stage 3b (GFR 30-44) Qualified Code(s): N18.32 - Chronic kidney disease, stage 3b (2) Proteinuria: Code(s): R80.9 - Proteinuria, unspecified Category: Medical Qualifiers: Proteinuria type: other Qualified Code(s): R80.8 - Other proteinuria (3) Hypertension: Code(s): I10 - Essential (primary) hypertension Category: Medical Qualifiers: Hypertension type: primary hypertension Qualified Code(s): I10 - Essential (primary) hypertension Plan MIRZA on CKD likely contrast nephropathy from CT angio while hospitalized-resolved Blood pressure at goal at home On SGLT2 i; No NSAID's; Needs weight loss C/W torsemide current dose No other medication changes today Labs 2 M; F/U 3 M Orders: Orders Creatinine 2 Months N18.32 - Chronic kidney disease, stage 3b Blood Urea Nitrogen 2 Months N18.32 - Chronic kidney disease, stage 3b Electrolytes 2 Months N18.32 - Chronic kidney disease, stage 3b Coding Level of Care Code Est Pt Level 4 (74397) Diagnoses Stage 3b chronic kidney disease N18.32 Chronic kidney disease stage 3 subtype: stage 3b (GFR 30-44) Other proteinuria R80.8 Proteinuria type: other Primary hypertension I10 Hypertension type: primary hypertension
[2024-11-10 10:21] VITALS: BP 144/60; PULSE 62; O2SAT 94; BMI 28.7
== END 2024-11-10 10:34 | disposition home or self-care (01) ==
LOC: HO.HKA 10:10
PROVIDERS: PCP Internal Medicine; Visit Provider Internal Medicine Nephrology
DX: N18.32 Chronic kidney disease, stage 3b (principal); R80.8 Other proteinuria; I10 Essential (primary) hypertension
CPT/HCPCS: 99214

== ENCOUNTER → 2024-11-10 10:10 | Outpatient (BNVA) | payer OTHER, SELFPAY | PROVIDERS: PCP Internal Medicine; Visit Provider Internal Medicine Nephrology | DX: N18.32 Chronic kidney disease, stage 3b (principal); R80.8 Other proteinuria; I10 Essential (primary) hypertension | CPT/HCPCS: 99212 ==

== ENCOUNTER 2024-11-15 13:53 | Outpatient (AMB) | payer OTHER, SELFPAY ==
[2024-11-15 13:58] VITALS: BP 160/72; PULSE 58; O2SAT 96; BMI 28.8
--- NOTE | 2024-11-15 13:58 | MHC.OFFVIS ---
Vital Signs 11/15/24 13:58 Height 5 ft 4 in Weight 168 lb BMI 28.8 BP 160/72 H Blood Pressure Location Lt brachial Position Sitting Pulse 58 Pulse Source Pulse Oximeter Pulse Oximetry (%) 96 Oxygen Delivery Method Room Air Intake Visit Reasons: COPD Intake Note: pt is here and states he is feeling good Auto Body Repair Teacher Required: No Allergies No Known Allergies Allergy (Verified 11/15/24 14:21) Medication List - Last Reconciled 11/15/24 by Lorin Perry MD albuterol sulfate 90 mcg/actuation 2 puffs inhalation Q4-6H PRN 30 days apixaban (Eliquis) 5 mg PO BID cholecalciferol (vitamin D3) (Vitamin D3) 25 mcg PO DAILY dapagliflozin propanediol (Farxiga) 10 mg PO DAILY diltiazem HCl ER 180 mg PO DAILY ferrous sulfate 325 mg PO BID 90 days hydralazine 25 mg PO TID isosorbide mononitrate ER 30 mg PO DAILY losartan 100 mg PO DAILY omeprazole 20 mg PO DAILY torsemide 20 mg PO DAILY umeclidinium 62.5 mcg/actuation (Incruse Ellipta) 1 inh inhalation DAILY Do you need a note to return to daycare/school/sports/work: No HPI HPI COPD: Details: SANDIE IS 79 YEARS OLD VINCENTIAN-SPEAKING GENTLEMAN. WHO HAS CALL CENTER SPECIALIST IS HIS SISTER IN LAW , . AND COMES WITH HIM . SANDIE IS FEELING MUCH BETTER. HIS COUGH IS MUCH LESS AND HE HAS NO HEMOPTYSIS FOR THE LAST 1 MONTH HE SLEEPS GOOD AT NIGHT USING O2 2 L/MINUTE. PULMONARY JUAN HE IS JUST USING INCRUSE ELLIPTA ONCE A DAY AND ALBUTEROL SULFATE 2 PUFFS Q 6 HOURS P.R.N. WHICH HE HARDLY NEEDS. [facility] Medical History Paroxysmal atrial fibrillation Respiratory failure with hypoxia Nocturnal hypoxemia Pulmonary fibrosis Pulmonary asbestosis COPD (chronic obstructive pulmonary disease) Social History Patient Tobacco Use Status: Never used Tobacco Review of Systems Const All systems reviewed & are unremarkable except as noted in HPI and below Eyes Reports no additional complaints ENT Reports nasal congestion (Mild intermittent) Card Denies irregular heart rhythm and Denies leg edema Resp Reports as per HPI GI Reports heartburn (Controlled with med) Reports no additional complaints Musc Reports no additional complaints Skin/Breast Reports system reviewed and no additional complaints, except as documented Neuro Reports no additional complaints Psych Reports no additional complaints Physical Exam Vital Signs: Last Vital Signs Pulse 58 11/15/24 13:58 BP 160/72 H 11/15/24 13:58 Pulse Ox 96 11/15/24 13:58 Oxygen Delivery Method Room Air 11/15/24 13:58 BMI result Body Mass Index 28.8 Const General: comfortable, no acute distress, alert and awake Orientation/consciousness: patient oriented x3 HEENT Head: Yes normal to inspection General nose exam: No nasal polyps present and No nasal discharge present Face and sinus: Yes sinuses nontender Mouth: oropharynx normal Throat: Yes posterior oropharynx normal Eyes General: appearance normal, both eyes and all related structures Neck Neck: Yes normal visual inspection, Yes no lymphadenopathy, Yes trachea midline and Yes no JVD Thyroid: Thyroid normal Chest Chest palpation & inspection: normal inspection of the chest, normal palpation of entire chest wall and no tenderness Resp Other: Percussion note is resonant, he has equal breath sounds on both sides somewhat distant with prolonged expiratory phase. NO WHEEZES OR CREPITATIONS ARE HEARD. Cardio Palpation: normal PMI Rate: regular rate Rhythm: regular rhythm Heart sounds: no gallops and no murmurs GI Palpation (GI): Soft to palpation, nontender, No hepatosplenomegaly present and no masses Auscultation: normal bowel sounds Back/Spine/Pelvis Thoracic/Lumbar Spine: thoracic and lumbar spine normal to inspection Skin General skin exam: no rashes or lesions noted Neuro General: patient oriented x3 and no focal motor deficits Cranial nerves: Yes CN's II-XII intact bilaterally Extrem General: Yes normal to inspection, Yes no clubbing, cyanosis or edema and Yes no calf tenderness Psych Appearance: grossly normal and well kempt Speech and movement: Normal speech and movement present Assessment & Plan Assessment & Plan (1) COPD (chronic obstructive pulmonary disease): Comment: MILD TO MODERTAE DEGREE OF COPD , MOSTLY WELL CONTROLLED, STATES THAT HIS COUGH IS MUCH LESS AND ONLY MINIMAL. FEELS BETTER WHEN HE IS USING O2 . LATELY HE IS NOT USING OXYGEN ALL THE TIMES AND USES ONLY P.R.N. IF HE GETS SHORT OF BREATH, DURING THE DAYTIME. HE DOES USE IT AT NIGHT 2 L/MINUTE. Code(s): J44.9 - Chronic obstructive pulmonary disease, unspecified Category: Medical Plan: ADVISED TO CONTINUE USING INCRUSE ELLIPTA 1 INHALATION DAILY. USE ALBUTEROL HFA 2 PUFFS Q 4-6 HOURS ONLY P.R.N.. (2) Pulmonary asbestosis: Comment: CHRONIC , MINIMAL. STABLE . Code(s): J61 - Pneumoconiosis due to asbestos and other mineral fibers Category: Medical Plan: NO ACTIVE TREATMENT NEEDED FOR THIS PROBLEM (3) Pulmonary fibrosis: Comment: MILD DEGREE OF PULMONARY FIBROSIS, SEC TO ASBESTOSIS ,STABLE . Code(s): J84.10 - Pulmonary fibrosis, unspecified Category: Medical Plan: AGAIN NO ACTIVE TREATMENT NEEDED. (4) Respiratory failure with hypoxia: Comment: PATIENT DOES HAVE NOCTURNAL HYPOXEMIA WELL DAYTIME EXERTIONAL HYPOXEMIA. THE DEGREE OF HYPOXEMIA VARIES WITH THE LEVEL OF HIS CONGESTIVE HEART FAILURE. NOW THAT HIS CONGESTIVE HEART FAILURE IS WELL CONTROLLED, HE DOES NOT NEED TO USE OXYGEN DURING THE DAYTIME. Code(s): J96.91 - Respiratory failure, unspecified with hypoxia Category: Medical Plan: ADVISED TO CONTINUE USING O2 2 L/MINUTE AT NIGHT. AND USE OXYGEN 2 L/MINUTE ONLY P.R.N. DURING THE DAYTIME. (5) Paroxysmal atrial fibrillation: Comment: PATIENT HAS PAROXYSMAL ATRIAL FIBRILLATION, CHRONIC CONGESTIVE HEART FAILURE, CT SCAN AT HOSPITAL WAS NEGATIVE FOR PULMONARY EMBOLISM. ATRIAL FIBRILLATION IS WELL CONTROLLED AT THIS TIME Code(s): I48.0 - Paroxysmal atrial fibrillation Category: Medical Plan: HE IS ON ELIQUIS 5 MG . A DAY DOSE WAS REDUCED DUE TO MILD HEMOPTYSIS. NOW FOR THE PAST 1 MONTH HE HAS HAD NO HEMOPTYSIS. SO IT IS OKAY TO TAKE ELIQUIS 5 MG B.I.D.. Coding Level of Care Code Est Pt Level 3 (07790) Diagnoses COPD (chronic obstructive pulmonary disease) J44.9 Pulmonary asbestosis J61 Pulmonary fibrosis J84.10 Respiratory failure with hypoxia J96.91 Paroxysmal atrial fibrillation I48.0
--- OUTSIDE RECORDS SUMMARY | 2024-11-15 14:47 | XMS_ITS | Encounter Summary ---
Author Organization [facility] Address [address] [facility] 7t [place] [address] Care Team Providers Care Emergency Doctor Name Role Phone Gallo Flores MD Primary Care Provider [phone] Reason for Referral * Imaging (Routine) - Authorized Specialty Diagnoses / Procedures Referred By Clementina nichols Referred To Contact Radiology Diagnoses Transaminitis Procedures US Abdomen Comp w elastography Gallo Flores MD [address] [place] [address] Phone: tel: fax: [address] Phone: tel: fax: Referral ID Status Reason Start Date Expiration Date V isits Requested Visits Authorized [id number] Authorized 09/14/2024 09/14/2025 1 1 Encounter Details Date Type Department Care Team (Late st Contact Info) Description 09/14/2024 Orders Only [facility] MED [facility] P[facility]S [address] [place] [address] Gallo Flores MD [address] [place], [place] [phone] Transaminitis (Primary Dx) Social History Tobacco Use [...] EDT) ~Hepatitis B Surface Antibody REACTIVE Nonreactive [facility] Comment:REACTIVE: > 11.99 mI U/mL Blood Venous blood specimen / Unknown 10/18/2024 3:30 PM EDT 10/18/2024 3:30 PM EDT Gallo Flores MD LAB BLOOD ORDERABLES Final Result [facility] [address] [place] [address] [phone] * (ABNORMAL) Prothrombin Time-INR (10/18/2024 3:30 PM EDT) Prothrombin Time 14.2(H) 10.9 - 12.4 SEC [facility] INTERNATIONAL NORM RATIO 1.2(H) 0.9 - 1.1 [facility] Comment:INTERNATIONAL NORMAL IZED RATIO (INR) [...] BLOOD ORDERABLES Final Result Performing Organization Address [facility] Co de Phone Number [facility] [address] [place] [phone] * (ABNORMAL) Immunoglobulins, Quantitative, IgA, IgG, IgM (10/18/2024 3:30 PM EDT) IMMUNOGLOBULIN G 2626(A) 600 - 1540 mg/dL [facility] IMMUNOGLOBULIN A 611(A) 70 - 320 mg/dL [facility] Immunoglobulin M 139 50 - 300 mg/dL [facility] Comment:THIS TEST WAS PERFOR MED AT:[facility] [place] [phone] BULLARD MD Blood Venous blood specimen / Unknown 10/18/2024 3:30 PM EDT 10/18/2024 3:30 PM EDT us Gallo Flores MD LAB BLOOD ORDERABLES Final Result Performing Organization Address [facility] Co de Phone Number [facility] [address] [place] [phone] documented in this encounter Visit Diagnoses Diagnosis Transaminitis- Primary Nonspecific elevation of levels of transaminase or lactic acid dehydrogenase (LDH) documented in this encounter Additional Health Concerns Assessment Noted Time PHQ-9 Depression Total Score: 0 09/14/19 25 11:20 AM EDT documented as of this encounter Care Teams Emergency Doctor Relationship Specialty Start Date End Date Gallo Flores MD [address] [place] [phone] PCP - General Internal Medicine 06/30/11 [facility] 10/15/24 documented as of this encounter
--- OUTSIDE RECORDS SUMMARY | 2024-11-15 14:47 | XMS_ITS | Encounter Summary ---
Author Organization [employer] Address [address] [facility] 7t [place] [address] Care Team Providers Care Certified Procedural Coder Name Role Phone Gallo Flores MD Primary Care Provider [phone] Encounter Details Date Type Department Care Team ([facility] st Contact Info) Description 12/01/2023 Abstract [facility] MED [facility] PEDS [address] [place] [address] Gallo Flores MD [address] [place] [address] Social History Tobacco Use Types Packs/Day Years Used Date Smoking Tobacco: Former Cigarettes 0.5 50 1 - 2011 Smokeless Tobacco: Never Depression Answer Date Recorded Patient Health Questionnaire-9 Score 0 06/29/2022 Housing Stability Answer Date Recorded What is your housing situation today? I do not have housing (Staying with others, in a hotel, in a nursing home, living outside on the street, on a [...] documented as of this encounter Care Teams Certified Procedural Coder Relationship Specialty Start Date End Date Gallo Flores MD [address] [place] [phone] PCP - General Internal Medicine 06/30/11 [facility] 10/15/24 documented as of this encounter
--- OUTSIDE RECORDS SUMMARY | 2024-11-15 14:47 | XMS_ITS | Encounter Summary ---
Author Organization [employer] Address [address] [facility] [address] 7[address] [place] [address] Care Team Providers Care Toll Relief Operator Name Role Phone Gallo Flores MD Primary Care Provider [phone] Encounter Details Date Type Department Care Team (Late st Contact Info) Description 07/27/2023 Orders Only [facility] MED & PEDS [address] [place], [place] [phone] Provider, MD Sangeeta Social History Tobacco Use Types Packs/Day Years Used Date Smoking Tobacco: Former Cigarettes 0.5 50 1 962 - 2011 Smokeless Tobacco: Never Depression Answer Date Recorded Patient Health Questionnaire-9 Score 0 06/29/2022 Housing Stability Answer Date Recorded What is your housing situation today? I do not have housing (Staying with others, in a hotel, in a alf, living outside on the street, on a [...] documented as of this encounter Care Teams Toll Relief Operator Relationship Specialty Start Date End Date Gallo Flores MD [address] [place] [phone] PCP - General Internal Medicine 06/30/11 [facility] 10/15/24 documented as of this encounter
--- OUTSIDE RECORDS SUMMARY | 2024-11-15 14:47 | XMS_ITS | Clinical Summary ---
Author Organization [facility] Address [address] [place] [address] Phone Care Team Providers Care Aircraft Mechanic Electrical And Radio Name Role Phone Gallo Flores MD Primary [...] to complete this topic Insurance [address] [place] [address] [facility] ([id number]) [facility] ([id number]) Care Teams Aircraft Mechanic Electrical And Radio Relationship Specialty Start Date End Date Gallo Flores MD PCP - General 04/01/20
--- OUTSIDE RECORDS SUMMARY | 2024-11-15 14:47 | XMS_ITS | Encounter Summary ---
Author Organization [employer] Address [address] [facility] 7t [place] [address] Care Team Providers Care Commercial Solar Sales Consultant Name Role Phone Gallo Flores MD Primary Care Provider [phone] Reason for Visit * Reason Onset Date Comments Error 07/29/2023 Encounter Details Date Type Department Care Team (Late st Contact Info) Description 07/29/2023 Telephone [facility] [address] [place] [address] Gallo Flores MD [address] [place], [place] [phone] Error Social History Tobacco Use Types Packs/Day [...] documented as of this encounter Care Teams Commercial Solar Sales Consultant Relationship Specialty Start Date End Date Gallo Flores MD [address] [place] [phone] PCP - General Internal Medicine 06/30[facility]11 [facility] documented as of this encounter
--- OUTSIDE RECORDS SUMMARY | 2024-11-15 14:47 | XMS_ITS | Clinical Summary ---
Author Organization 175 [facility] Address [address] [place] [address] Phone Care Team Providers Care Off Premise Service Representative Name Role Phone Nadeen Chris [facility] Primary Care Provider [phone] Allergies No known active allergies Medications clotrimazole (LOTRIMIN) 1 % cream Apply topically 2 (two) times a day. 30 g 3 5 12/08/19 25 Active Encounters Date Type Department Care Team Description 11/07/2024 10:30 AM EDT Consult Orthopedic Surgery [facility] [address] [address] Bernard Stein DPM Dermatophytosis of nail (Primary [...] Upcoming Encounters Date Type Department Care Team ([facility] st Contact Info) Description 01/09/2025 10:30 AM EDT Office Visit Orthopedic Surgery [facility] [address] [phone] Bernard Stein DPM [address] [place] [address] Health Maintenance Due Date Last Done Comments Zoster Vaccines (2 of 3) 07/13/2016 05/18/2016 RSV Immunization Adult Patients (1 - 1-dose 75+ series) 09/11/2019 Depression Screening 03/22/2024 COVID-19 Vaccine ( season) 2024 12/30/2023, 05/30/2020, 05/03/2020 Falls Risk [...] patient's age to complete this topic Insurance [facility] OPTIONS Member Subscriber Plan / Payer (Ef fective 2024-Present) Name:Karri Huntley Relation to Subscriber:Self Name:Karri Huntley Payer ID:[id number] Group ID:Not on file Type:Not on file Address: [place] [address] [place] [address] Care Teams Off Premise Service Representative Relationship Specialty Start Date End Date Nadeen Chris FNP [address] [place] [phone] PCP - General Family Medicine 08/09/24
--- OUTSIDE RECORDS SUMMARY | 2024-11-15 14:47 | XMS_ITS | Clinical Summary ---
Author Organization [employer] Address 75 [facility] 7t [place] [address] Care Team Providers Care Enrollment Services Vice President Name Role Phone Gallo Flores MD Primary Care Provider [phone] Allergies No known active allergies Medications dilTIAZem CD (Cardizem CD) 360 MG 24 hr capsule Take 360 mg by mouth. 07/04/19 22 Active hydrALAZINE (Apresoline) 50 MG tablet Take 1 tablet by mouth. 02/26/20 22 Active torsemide (Demadex) 20 MG tablet Take 2 tablets by mouth daily alternating with 1 tablet by mouth daily 07/24/19 22 Active aspirin (Nicholas Low Dose) 81 MG EC tabletIndicatio ns:Essential hypertension Take 1 tablet (81 mg) by mouth in the morning. 30 tablet 11 05/20/19 24 Active Eliquis 5 MG tablet Take 1 tablet by mouth 2 times daily. 07/14/19 24 Active Farxiga 10 MG Take 1 tablet by mouth Once per day. 01/03/20 22 Active losartan (Cozaar) 100 MG tablet Take 1 tablet by mouth Once per day. 03/02/20 23 Active Incruse Ellipta 62.5 MCG/ACT aerosol powder Inhale 1 puff 1 (one) time each day at the same time. 10/09/19 23 Active ferrous sulfate 325 (65 Fe) MG EC tablet Take 1 tablet by mouth 3 times daily. 07/27/19 24 Active cholecalciferol (Vitamin D-3) 25 MCG (1000 UT) capsule Take 1 capsule (25 mcg) by mouth Once per day. 30 capsule 05/19/19 25 Active omeprazole (PriLOSEC) [address] capsule TAKE 1 CAPSULE BY MOUTH BEFORE A MEAL 30 capsule 11 10/25/19 25 Active omeprazole (PriLOSEC) [address] capsule TAKE 1 CAPSULE BY MOUTH BEFORE A MEAL 30 capsule 11 11/25/19 24 2024 Discontinued(R eorder (will not trigger notification to Pharmacy)) Active Problems Problem Noted Date Diagnosed Date Acute foot pain, right 08/07/2024 Class 1 obesity 09/09/2023 Heart failure with [...] Encounters Date Type Department Care Team Description 10/24/2024 Refill [facility] [address] [place] [address] Gallo Flores MD 10/23/2024 Results Follow-Up [facility] [address] [place] [address] Sandra Keys RN Immunoglobulins, Quantitative, IgA, IgG, IgM, Prothrombin Time-INR, Hepatitis B Surface Antibody, Qualitative 10/23/2024 Telephone [facility] [address] [place] [address] Gallo Flores MD Hospital Follow-up 10/23/2024 Orders Only [facility] [address] [place] [address] Gallo Flores MD Transaminitis (Primary Dx) 10/18/2024 Orders Only GENERIC EXTERNAL DATA DEPARTMENT Provider, Generic External Data 10/16/2024 Telephone [facility] [address] [place] [address] Gallo Flores MD requesting call back 09/15/2024 Results Follow-Up [facility] [address] [place] [address] Sandra Keys RN Comprehensive Metabolic Panel, Lipid Panel, Standard, TSH W/Reflex to FT4 09/14/2024 Orders Only [facility] [address] [place] [address] Gallo Flores MD Transaminitis (Primary Dx) 09/13/2024 10:45 AM EDT Office Visit [facility] [address] [place] [address] Gallo Flores MD Primary hypertension (Primary Dx); COPD without exacerbation (CMS/HCC); Dietary counseling; Exercise counseling; Chronic heart failure with preserved ejection fraction (CMS/HCC) 09/13/2024 Orders Only GENERIC EXTERNAL DATA DEPARTMENT Provider, Generic External Data 09/13/2024 Travel 09/06/2024 Patient Outreach [facility] [address] [place] [address] Gallo Flores MD Pre-visit Planning (Pre visit planning unable to LVM ) from Last 3 Months Immunizations Immunization Administration Dates Next Due Influenza High-dose Quadriva [...] Sign Reading Time Taken Comments Blood Pressure 147/69 09/13/2024 10:54 AM EDT Pulse 70 09/13/2024 10:54 AM EDT Temperature 36.8 C (98.3 F) 09/13/2024 10:54 AM EDT Respiratory Rate 20 09/13/2024 10:54 AM EDT Oxygen Saturation 95% 09/13/2024 10:54 AM EDT Inhaled Oxygen Concentration - - Weight 75.8 kg (167 lb) 09/13/2024 10:54 AM EDT Height 160 cm (5' 3 ) 09/13/2024 10:54 AM EDT Body Mass Index 29.58 09/13/2024 10:54 AM EDT Plan of Treatment Health Maintenance Due Date Last Done Comments Lung Cancer Screening 1994 Zoster Vaccines (2 of 3) 07/13/2016 05/18/2016 RSV Patients and Patients Aged 60 years or older (1 - 1-dose 75+ series) 09/11/2019 COVID-19 Vaccine ( - season) 2024 12/30/2023, 05/30/2020, 05/03/2020 Influenza Vaccine (#1) 2024 , 01/18/2023, 01/12/2022, Additional history exists Alcohol/Substance Use Screening 09/13/2025 09/13/2024 Depression Screening 09/13/2025 09/13/2024, 09/14/19 SDOH Screening 09/13/2025 09/13/2024 Tobacco Screening 09/13/2025 09/13/2024 DTaP/Tdap/Td Vaccines (2 - Td or Tdap) 05/18/2026 05/18/2016 Lipid Panel 09/13/2029 09/13/2024 Pneumococcal Vaccine: 50+ Years Completed [...] Procedure Name Priority Date/Time Associated Diagnosis Comments AMB REFERRAL TO PODIATRY Routine 11/07/2024 Acute foot pain, right CBC WITH AUTO DIFFERENTIAL Routine 10/18/2024 3:30 PM EDT HEPATITIS B SURFACE ANTIBODY, QUALITATIVE Routine 10/18/2024 3:30 PM EDT Transaminitis PROTHROMBIN TIME-INR Routine 10/18/2024 3:30 PM EDT Transaminitis IMMUNOGLOBULINS, QUANTITATIVE, IGA, IGG, IGM Routine 10/18/2024 3:30 PM EDT Transaminitis UREA NITROGEN (BUN) Routine 09/13/2024 1 1:29 AM EDT TSH W/REFLEX TO FT4 Routine 09/13/2024 1 1:29 AM EDT Primary hypertension LIPID PANEL, STANDARD Routine 09/13/2024 11:29 AM EDT Primary hypertension COMPREHENSIVE METABOLIC PANEL Routine 09/13/2024 11:29 AM EDT Primary hypertension from Last 3 Months Results * Referral to Podiatry (11/07/2024) Nadeen Chris [facility] OUTPATIENT REFERRAL ORDERABLES Final Result * (ABNORMAL) CBC auto differential (10/18/2024 3:30 PM EDT) White Blood Count 6.6 4.8 - 10.8 X10*3/uL [facility] Red Blood Count 4.85 4.60 - 5.80 X10*6/uL [facility] Hemoglobin 12.7(L) 14.0 - 18.0 g/dl [facility] Hematocrit 40.5(L) 42.0 - 52.0 % [facility] Mean Corpuscular Volume 83.5 80.0 - 98.0 fL [facility] Mean Corpuscular Hemoglobin 26.2(L) 27.0 - 33.0 pg [facility] Mean Corpuscular HGB Conc 31.4 31.0 - 36.0 g/dl [facility] Red Cell Distribution Width 15.4 11.0 - 16.0 % [facility] Platelet Count 281 160 - 400 X10*3/uL [facility] Mean Platelet Volume 9.9 9.4 - 12.4 fL [facility] Neutrophils Percent Auto 53.2 45 - 73 % [facility] Imm Gran Pct Auto 0.3 0.0 - 0.4 % [facility] Lymphocytes Percent Auto 33.0 20 - 40 % [facility] Monocytes Percent Auto 8.8 2 - 11 % [facility] Eosinophils Percent Auto 3.9 0 - 4 % [facility] Basophils Percent Auto 0.8 0 - 2 % [facility] NRBC Pct Auto 0.0 0.0 - 0.2 /100WBC [facility] Neutrophils Absolute Auto 3.5 2.0 - 8.3 x10*3/uL [facility] Imm Gran Abs Auto 0.02 0.00 - 0.03 X10*3/uL [facility] Lymphocytes Absolute Auto 2.2 1.2 - 4.9 X10*3/uL [facility] Monocytes Absolute Auto 0.6 0.1 - 1.2 X10*3/uL [facility] Eosinophils Absolute Auto 0.3 0.0 - 0.4 X10*3/uL [facility] Basophils Absolute Auto 0.1 0.0 - 0.2 X10*3/uL [facility] NRBC Abs Auto 0.000 0.0 - 0.012 X10*3/uL [facility] 10/18/2024 3:30 PM EDT 10/18/2024 3:30 PM EDT us Generic External Data Provider LAB BLOOD ORDERAB LES Final Result Performing Organization Address [facility] de Phone Number [facility] [address] [place] [phone] * Hepatitis B Surface Antibody, Qualitative (10/18/2024 3:30 PM EDT) ~Hepatitis B Surface Antibody REACTIVE Nonreactive [facility] Comment:REACTIVE: > 11.99 mI U/mL Blood Venous blood specimen / Unknown 10/18/2024 3:30 PM EDT 10/18/2024 3:30 PM EDT us Gallo Flores MD LAB BLOOD ORDERABLES Final Result Performing Organization Address [facility] Phone Number [facility] [address] [place] [phone] * (ABNORMAL) Prothrombin Time-INR (10/18/2024 3:30 PM EDT) Prothrombin Time 14.2(H) 10.9 - 12.4 SEC [facility] INTERNATIONAL NORM RATIO 1.2(H) 0.9 - 1.1 [facility] Comment:INTERNATIONAL NORMAL IZED RATIO (INR) [...] BLOOD ORDERABLES Final Result Performing Organization Address [facility] Co de Phone Number [facility] [address] [place] [phone] * (ABNORMAL) Immunoglobulins, Quantitative, IgA, IgG, IgM (10/18/2024 3:30 PM EDT) IMMUNOGLOBULIN G 2626(A) 600 - 1540 mg/dL [facility] IMMUNOGLOBULIN A 611(A) 70 - 320 mg/dL [facility] Immunoglobulin M 139 50 - 300 mg/dL [facility] Comment:THIS TEST WAS PERFOR MED AT:[employer] [place] [phone] BULLARD MD Blood Venous blood specimen / Unknown 10/18/2024 3:30 PM EDT 10/18/2024 3:30 PM EDT us Gallo Flores MD LAB BLOOD ORDERABLES Final Result Performing Organization Address [facility] Co de Phone Number [facility] [address] [place] [phone] * TSH W/Reflex to FT4 (09/13/2024 11:29 AM EDT) [facility] TSH reflex Free T4 1.58 0.32 - 4.0 uIU/mL [facility] Blood Venous blood specimen / Unknown 09/13/2024 11:29 AM EDT 09/13/2024 2:28 PM EDT Gallo Flores MD LAB BLOOD ORDERABLES Final Result Performing Organization Address [facility] de Phone Number [facility] [address] [place] [phone] * (ABNORMAL) BUN (Blood Urea Nitrogen) (09/13/2024 11:29 AM EDT) Pathologist [facility] Urea Nitrogen (BUN) 26(H) 9 - 16 mg/dL [facility] 09/13/2024 11:2 9 AM EDT 09/13/2024 2:28 PM EDT us Generic External Data Provider LAB BLOOD ORDERAB LES Final Result Performing Organization Address [facility] Co de Phone Number [facility] [address] [place] [phone] * Lipid Panel, Standard (09/13/2024 11:29 AM EDT) Triglycerides 58 <150 mg/dL [facility] Comment:Desirable Triglyceri de: less than 150 mg/dLBorderline High Triglyceride 150-199 mg/dLHigh Triglyceride: 200-499 mg/dLVery High Triglyceride: greater than or equal to 5OO mg/dL Cholesterol 147 <200 mg/dL [facility] Comment:Desirable Cholestero l: less than 200 mg/dLBorderline High Cholesterol: 200-239 mg/dLHigh Cholesterol: greater than 239 mg/dL LDL Cholesterol Calculated 87 <100 mg/dL [facility] Comment:Desirable LDL: less than 100 mg/dLNear Optimal/Above Optimal LDL: 110- 129 mg/dLBorderline High LDL: 130-159 mg/dLHigh LDL: 160-189 mg/dLVery High LDL: greater than or equal to 190 mg/dL HDL Cholesterol 49 >40 mg/dL [facility] Comment:Desirable HDL: great er than 40 mg/dL Note: This HDL assay may give artificially low results in patients with liver disease. Blood Venous blood specimen / Unknown 09/13/2024 11:29 AM EDT 09/13/2024 2:28 PM EDT us Gallo Flores MD LAB BLOOD ORDERABLES Final Result Performing Organization Address [facility]/ZIP Co de Phone Number [facility] [address] [place] [phone] * (ABNORMAL) Comprehensive Metabolic Panel (09/13/2024 11:29 AM EDT) Sodium 138 135 - 145 mmol/L [facility] Potassium 4.6 3.3 - 5.1 mmol/L [facility] Chloride 108 96 - 108 mmol/L [facility] Carbon Dioxide 24 22 - 29 mmol/L [facility] Anion Gap 11(L) 12 - 20 [facility] Urea Nitrogen (BUN) 24(H) 9 - 16 mg/dL [facility] Creatinine, Serum 1.92(H) 0.5 - 1.4 mg/dL [facility] Estimated Glomerular Filt Rate 34 [facility] Comment:Chronic Kidney Disea se: Estimated GFR < 60 mL/min/1.22y9Bgkahr Kidney Disease: Estimated GFR < 15 mL/min/1.73m2 Glucose 97 60 - 115 mg/dL [facility] Calcium 10.2 8.4 - 10.2 mg/dL [facility] Bilirubin, Total 0.6 0.0 - 1.0 mg/dL [facility] Aspartate Amino Transferase 39(H) 5 - 37 U/L [facility] Alanine Aminotransferase 32 0 - 40 U/L [facility] Total Protein 8.4(H) 6.5 - 8.0 g/dL [facility] Albumin Level 3.9 3.5 - 5.0 g/dL [facility] Alkaline Phosphatase 177(H) 39 - 117 U/L [facility] Blood Venous blood specimen / Unknown 09/13/2024 11:29 AM EDT 09/13/2024 2:28 PM EDT us Gallo Flores MD LAB BLOOD ORDERABLES Final Result [facility] [address] [place] [phone] from Last 3 Months Insurance [facility] [employer] OPT[employer] (HMO D-SNP) [place] [id number] ASH Chavez [id number] ASH Chavez [id number] Care Teams Enrollment Services Vice President Relationship Specialty Start Date End Date Gallo Flores MD [address] [place] [address] ASH Chavez PCP - General Internal Medicine 06/30/11 [facility] 10/15/24
--- OUTSIDE RECORDS SUMMARY | 2024-11-15 14:47 | XMS_ITS | Patient Health Record ---
Author Organization [facility] Address [address] [place] [address] Care Team Providers Care Funeral Planning Counselor Name Role Phone alessandra quesada Primary Care Provider UnavailJewel Ruelas Jr Unavailable [phone] Reason For Referral No Information Plan Of Treatment No Information Insurance Providers Payer Name Payer Address Payer Phone Subscriber Number Group Number Insured Name Patient Relationship to Insured Coverage Start Date Coverage End Date MEDICARE OF [place] [address] [place] [address] [id number] SANDIE AKERS Self - patient is the insured MEDICAID OF [facility] [address] [place] [id number] [id number] SANDIE AKERS Self - patient is the insured
--- OUTSIDE RECORDS SUMMARY | 2024-11-15 14:47 | XMS_ITS | Encounter Summary ---
Author Organization [employer] Address [address] [facility] 7t [place] [address] Care Team Providers Care Biological Science Technician Name Role Phone Gallo Flores MD Primary Care Provider [phone] Encounter Details Date Type Department Care Team ([facility] st Contact Info) Description 10/23/2024 Orders Only [facility] [address] [place], [place] [phone] Gallo Flores MD [address] [place], [place] [phone] Transaminitis (Primary Dx) Social History Tobacco Use [...] Type Priority Associated Diagnoses Orde r Schedule Hepatitis C Antibody with Reflex to HCV, RNA, Quantitative, Real-Time PCR Lab Routine Transaminitis Expected: 10/23/2024, Expires: 10/23/2025 documented as of this encounter Visit Diagnoses Diagnosis Transaminitis- Primary Nonspecific elevation of levels of transaminase or lactic acid dehydrogenase (LDH) documented in this encounter Additional Health Concerns Assessment Noted Time PHQ-9 Depression Total Score: 0 09/14/19 25 11:20 AM EDT documented as of this encounter Care Teams Biological Science Technician Relationship Specialty Start Date End Date Gallo Flores MD [address] [place] [phone] PCP - General Internal Medicine 06/30/11 [facility] 10/15/24 documented as of this encounter
== END 2024-11-15 14:23 | disposition home or self-care (01) ==
LOC: HO.HPS 13:54
PROVIDERS: PCP Internal Medicine; Visit Provider Internal Medicine
DX: J44.9 Chronic obstructive pulmonary disease, unspecified (principal); J61 Pneumoconiosis due to asbestos and other mineral fibers; J84.10 Pulmonary fibrosis, unspecified; J96.91 Respiratory failure, unspecified with hypoxia; I48.0 Paroxysmal atrial fibrillation
CPT/HCPCS: 99213

== ENCOUNTER → 2024-11-15 13:53 | Outpatient (BNVA) | payer OTHER, SELFPAY | PROVIDERS: PCP Internal Medicine; Visit Provider Internal Medicine | DX: J44.9 Chronic obstructive pulmonary disease, unspecified (principal); J61 Pneumoconiosis due to asbestos and other mineral fibers; J96.91 Respiratory failure, unspecified with hypoxia; I48.0 Paroxysmal atrial fibrillation; J84.10 Pulmonary fibrosis, unspecified | CPT/HCPCS: 99212 ==

== ENCOUNTER 2025-01-03 09:09 | Outpatient (REF) | payer OTHER, SELFPAY ==
--- OUTSIDE RECORDS SUMMARY | 2025-01-03 10:10 | XMS_ITS | Clinical Summary ---
Author Organization [facility] Address [address] [place] [address] Phone Care Team Providers Care Web Producer Name Role Phone Gallo Flores MD Primary [...] to complete this topic Insurance [address] [place] [address] [facility] ([id number]) [facility] ([id number]) Care Teams Web Producer Relationship Specialty Start Date End Date Gallo Flores MD PCP - General 04/01/20
--- OUTSIDE RECORDS SUMMARY | 2025-01-03 10:10 | XMS_ITS | Encounter Summary ---
Author Organization [employer] Address [address] [facility] 7t [place] [address] Care Team Providers Care Senior Sales Assistant Name Role Phone Gallo Flores MD Primary Care Provider [phone] Reason for Referral * Imaging (Routine) - Authorized Specialty Diagnoses / Procedures Referred By Clementina nichols Referred To Contact Radiology Diagnoses Transaminitis Procedures US Abdomen Comp w elastography Gallo Flores MD [address] [place] [address] Phone: tel: fax: [address] Phone: tel: fax: Referral ID Status Reason Start Date Expiration Date V isits Requested Visits Authorized [id number] Authorized 09/14/2024 09/14/2025 1 1 Encounter Details Date Type Department Care Team (Late st Contact Info) Description 09/14/2024 Orders Only [facility] PEDS [address] [place] [address] Gallo Flores MD [address] [place], [place] [phone] Transaminitis (Primary Dx) Social History Tobacco Use [...] EDT) ~Hepatitis B Surface Antibody REACTIVE Nonreactive [facility] Comment:REACTIVE: > 11.99 mI U/mL Blood Venous blood specimen / Unknown 10/18/2024 3:30 PM EDT 10/18/2024 3:30 PM EDT Gallo Flores MD LAB BLOOD ORDERABLES Final Result [facility] [address] [place] [address] [phone] * (ABNORMAL) Prothrombin Time-INR (10/18/2024 3:30 PM EDT) Prothrombin Time 14.2(H) 10.9 - 12.4 SEC [facility] INTERNATIONAL NORM RATIO 1.2(H) 0.9 - 1.1 [facility] Comment:INTERNATIONAL NORMAL IZED RATIO [...] BLOOD ORDERABLES Final Result Performing Organization Address [facility] Co de Phone Number [facility] [address] [place] [phone] * (ABNORMAL) Immunoglobulins, Quantitative, IgA, IgG, IgM (10/18/2024 3:30 PM EDT) IMMUNOGLOBULIN G 2626(A) 600 - 1540 mg/dL [facility] IMMUNOGLOBULIN A 611(A) 70 - 320 mg/dL [facility] Immunoglobulin M 139 50 - 300 mg/dL [facility] Comment:THIS TEST WAS PERFOR MED AT:[employer] [place] [phone] BULLARD MD Blood Venous blood specimen / Unknown 10/18/2024 3:30 PM EDT 10/18/2024 3:30 PM EDT us Gallo Flores MD LAB BLOOD ORDERABLES Final Result Performing Organization Address [facility] Co de Phone Number [facility] [address] [place] [phone] documented in this encounter Visit Diagnoses Diagnosis Transaminitis- Primary Nonspecific elevation of levels of transaminase or lactic acid dehydrogenase (LDH) documented in this encounter Additional Health Concerns Assessment Noted Time PHQ-9 Depression Total Score: 0 09/14/19 25 11:20 AM EDT documented as of this encounter Care Teams Senior Sales Assistant Relationship Specialty Start Date End Date Gallo Flores MD [address] [place] [phone] PCP - General Internal Medicine 06/30/11 [facility] 10/15/24 documented as of this encounter
--- OUTSIDE RECORDS SUMMARY | 2025-01-03 10:10 | XMS_ITS | Encounter Summary ---
Author Organization [employer] Address [address] [facility] 7t [place] [address] Care Team Providers Care Software Engineer Web Services Name Role Phone Gallo Flores MD Primary Care Provider [phone] [phone] Reason for Visit * Reason Onset Date Comments Error 07/29/2023 Encounter Details Date Type Department Care Team (Late st Contact Info) Description 07/29/2023 Telephone [facility] MEDICINE [address] [place] [address] Gallo Flores MD [address] [place], [place] [phone] Error Social History Tobacco Use Types Packs/Day [...] as of this encounter Care Teams Software Engineer Web Services Relationship Specialty Start Date End Date Gallo Flores MD [address] [place] [phone] PCP - General Internal Medicine 06[facility]30[facility]11 [facility] documented as of this encounter
--- OUTSIDE RECORDS SUMMARY | 2025-01-03 10:10 | XMS_ITS | Encounter Summary ---
Author Organization [employer] Address 75 [facility] 7t [place] [address] Care Team Providers Care Insole Beveler Name Role Phone Gallo Flores MD Primary Care Provider [phone] Encounter Details Date Type Department Care Team ([facility] st Contact Info) Description 12/01/2023 Abstract [facility] MED & PEDS [address] [place] [address] Gallo Flores MD [address] [place] [address] Social History Tobacco Use Types Packs/Day Years [...] documented as of this encounter Care Teams Insole Beveler Relationship Specialty Start Date End Date Gallo Flores MD [address] [place] [phone] PCP - General Internal Medicine 06/30/11 [facility] 10/15/24 documented as of this encounter
--- OUTSIDE RECORDS SUMMARY | 2025-01-03 10:10 | XMS_ITS | Clinical Summary ---
Author Organization [facility] Address [address] [place] [address] Phone Care Team Providers Care Landscaping Crew Leader Name Role Phone [facility] Primary Care Provider [phone] Allergies No known active allergies Medications clotrimazole (LOTRIMIN) 1 % cream Apply topically 2 (two) times a day. 30 g 3 5 12/08/19 25 Encounters Date Type Department Care Team Description 11/07/2024 10:30 AM EDT Consult Orthopedic Surgery [facility] [address] [phone] Bernard Stein DPM Dermatophytosis of nail (Primary [...] Upcoming Encounters Date Type Department Care Team ([facility] Contact Info) Description 01/09/2025 10:30 AM EDT Office Visit Orthopedic Surgery [facility] [address] [phone] Bernard Stein DPM [address] [phone] Health Maintenance Due Date Last Done Comments Zoster Vaccines (2 of 3) 07/13/2016 05/18/2016 RSV Immunization Adult Patients (1 - 1-dose 75+ series) 09/11/2019 Depression Screening 03/22/2024 Falls Risk Assessment 08/09/2024 Lung Cancer Screening (Low Dose CT) 08/09/2024 Medicare Annual Wellness Visit 08/09/2024 Social Influencers of Health Screening 08/09/2024 COVID-19 Vaccine ( season) 2024 12/30/2023, 05/30/2020, 05/03/2020 Influenza Vaccine [...] patient's age to complete this topic Insurance [facility] OPTIONS Member Subscriber Plan / Payer (Ef fective 2024-Present) Name:Karri Huntley Relation to Subscriber:Self Name:Karri Huntley Payer ID:[id number] Group ID:Not on file Type:Not on file Address: [place] [address] [place] [phone] Care Teams Landscaping Crew Leader Relationship Specialty Start Date End Date Nadeen Chris FNP [address] [place] [phone] PCP - General Family Medicine 08/09/24
--- OUTSIDE RECORDS SUMMARY | 2025-01-03 10:10 | XMS_ITS | Patient Health Record ---
Author Organization [facility] Address [address] [place] [address] Care Team Providers Care Jewelry Inspector Name Role Phone alessandra quesada Primary Care Provider UnavailJewel Ruelas Jr Unavailable Reason For Referral No Information Plan Of Treatment No Information Insurance Providers Payer Name Payer Address Payer Phone Subscriber Number Group Number Insured Name Patient Relationship to Insured Coverage Start Date Coverage End Date [place] [address] [place] [phone] [id number] SANDIE AKERS Self - patient is the insured MEDICAID OF [facility] [address] [place] [address] [id number] SANDIE AKERS Self - patient is the insured
--- OUTSIDE RECORDS SUMMARY | 2025-01-03 10:10 | XMS_ITS | Encounter Summary ---
Author Organization [employer] Address [address] [facility] [address] 7t [place] [address] Care Team Providers Care Hazmat Technician Name Role Phone Gallo Flores MD Primary Care Provider [phone] Encounter Details Date Type Department Care Team (Late st Contact Info) Description 07/27/2023 Orders Only [facility] MED & PEDS [address] [place], [place] [phone] Provider, MD Sangeeta Social History Tobacco Use Types Packs/Day Years Used Date Smoking Tobacco: Former Cigarettes 0.5 50 1 962 - 2011 Smokeless Tobacco: Never Depression Answer Date Recorded Patient Health Questionnaire-9 Score 0 06/29/2022 Housing Stability Answer Date Recorded What is your housing situation today? I do not have housing (Staying with others, in a hotel, in a retirement, living outside on the street, on a [...] documented as of this encounter Care Teams Hazmat Technician Relationship Specialty Start Date End Date Gallo Flores MD [address] [place] [phone] PCP - General Internal Medicine 06/30/11 [facility] 10/15/24 documented as of this encounter
--- OUTSIDE RECORDS SUMMARY | 2025-01-03 10:11 | XMS_ITS | Clinical Summary ---
Author Organization [employer] Address 75 [facility] 7t [place] [address] Care Team Providers Care Flotation Operator Name Role Phone Gallo Flores MD Primary Care Provider [phone] Allergies No known active allergies Medications dilTIAZem [...] by mouth 3 times daily. 4 Active cholecalciferol (Vitamin D-3) 25 MCG (1000 UT) capsule Take 1 capsule (25 mcg) by mouth Once per day. 30 capsule 11 5 Active omeprazole (PriLOSEC) [address] capsule TAKE 1 CAPSULE BY MOUTH BEFORE A MEAL 30 capsule 11 08/05/202 5 Active Active Problems Problem Noted Date Diagnosed Date Asbestos exposure 11/15/2024 Acute foot pain, right 08/07/2024 Class 1 obesity 09/09/2023 Heart failure with preserved ejection fraction 0 09/09/2023 Chronic hypoxic respiratory failure ([facility]) Pulmonary hypertension ([facility]) 07/25/2023 Vitamin D deficiency 07/25/2023 Essential (primary) hypertension 07/25/2023 Gastroesophageal reflux disease without esophagi tis 07/25/2023 ILD (interstitial lung disease) ([facility]) 2023 Microcytic anemia 07/25/2023 Anemia due to blood loss 07/21/2023 Paroxysmal atrial flutter ([facility]) 07/21/2023 Pulmonary fibrosis 07/21/2023 Benign hypertensive heart an d CKD, 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), w CHF 05/20/2023 Cardiomyopathy 06/29/2022 COPD without exacerbation ([facility]) 06/29/2022 Heart failure 07/04/2021 Proteinuria 06/18/2021 Chronic obstructive lung disease 10/29/2020 Benign hypertensive renal disease 06/07/2020 Alkaline phosphatase raised 02/19/2016 CKD (chronic kidney disease) stage 3, GFR 30-59 ml/min ([facility]) 02/17/2016 Abdominal pain 08/01/2012 Hypertension 06/09/2011 Chest pain 06/09/2011 Noninfectious gastroenteritis 06/09/2011 Encounters Date Type Department Care Team Description 10/24/2024 Refill [facility] [address] [place] [address] Gallo Flores MD 10/23/2024 Results Follow-Up [facility] [address] [place] [address] Sandra Keys, DIONISIO Immunoglobulins, Quantitative, IgA, IgG, IgM, Prothrombin Time-INR, Hepatitis B Surface Antibody, Qualitative 10/23/2024 Telephone [facility] [address] [place] [address] Gallo Flores MD Hospital Follow-up 10/23/2024 Orders Only [facility] [address] [place] [address] Gallo Flores MD Transaminitis (Primary Dx) 10/18/2024 Orders Only GENERIC EXTERNAL DATA DEPARTMENT Provider, Generic External Data 10/16/2024 Telephone [facility] [address] [place] [address] Gallo Flores MD requesting call back from Last 3 Months Immunizations Immunization Administration [...] IGM Routine 10/18/2024 3:30 PM EDT Transaminitis LIPID PANEL, STANDARD Routine 09/13/2024 11:29 AM EDT Primary hypertension from Last 3 Months or Most Recently Relevant to Health Maintenance Results * Referral to Podiatry (11/07/2024) Nadeen Chris [facility] OUTPATIENT REFERRAL ORDERABLES Final Result * (ABNORMAL) CBC auto differential (10/18/2024 3:30 PM EDT) White Blood Count 6.6 4.8 - 10.8 X10*3/uL [facility] Red Blood Count 4.85 4.60 - 5.80 X10*6/uL [facility] Hemoglobin 12.7(L) 14.0 - 18.0 g/dl [facility] Hematocrit 40.5(L) 42.0 - 52.0 % [facility] Mean Corpuscular Volume 83.5 80.0 - 98.0 fL [facility] Mean Corpuscular Hemoglobin 26.2(L) 27.0 - 33.0 pg [facility] Mean Corpuscular HGB Conc 31.4 31.0 - 36.0 g/dl [facility] Red Cell Distribution Width 15.4 11.0 - 16.0 % [facility] Platelet Count 281 160 - 400 X10*3/uL [facility] Mean Platelet Volume 9.9 9.4 - 12.4 fL [facility] Neutrophils Percent Auto 53.2 45 - 73 % [facility] Imm Gran Pct Auto 0.3 0.0 - 0.4 % [facility] Lymphocytes Percent Auto 33.0 20 - 40 % [facility] Monocytes Percent Auto 8.8 2 - 11 % [facility] Eosinophils Percent Auto 3.9 0 - 4 % [facility] Basophils Percent Auto 0.8 0 - 2 % [facility] NRBC Pct Auto 0.0 0.0 - 0.2 /100WBC [facility] Neutrophils Absolute Auto 3.5 2.0 - 8.3 x10*3/uL [facility] Imm Gran Abs Auto 0.02 0.00 - 0.03 X10*3/uL [facility] Lymphocytes Absolute Auto 2.2 1.2 - 4.9 X10*3/uL [facility] Monocytes Absolute Auto 0.6 0.1 - 1.2 X10*3/uL [facility] Eosinophils Absolute Auto 0.3 0.0 - 0.4 X10*3/uL [facility] Basophils Absolute Auto 0.1 0.0 - 0.2 X10*3/uL [facility] NRBC Abs Auto 0.000 0.0 - 0.012 X10*3/uL [facility] 10/18/2024 3:30 PM EDT 10/18/2024 3:30 PM EDT us Generic External Data Provider LAB BLOOD ORDERAB LES Final Result Performing Organization Address [facility]/ZIP Co de Phone Number [facility] [address] [place] [phone] * Hepatitis B Surface Antibody, Qualitative (10/18/2024 3:30 PM EDT) ~Hepatitis B Surface Antibody REACTIVE Nonreactive [facility] Comment:REACTIVE: > 11.99 mI U/mL Blood Venous blood specimen / Unknown 10/18/2024 3:30 PM EDT 10/18/2024 3:30 PM EDT us Gallo Flores MD LAB BLOOD ORDERABLES Final Result Performing Organization Address [facility] Co de Phone Number [facility] [address] [place] [phone] * (ABNORMAL) Prothrombin Time-INR (10/18/2024 3:30 PM EDT) Prothrombin Time 14.2(H) 10.9 - 12.4 SEC [facility] INTERNATIONAL NORM RATIO 1.2(H) 0.9 - 1.1 [facility] Comment:INTERNATIONAL NORMAL IZED RATIO (INR) [...] BLOOD ORDERABLES Final Result Performing Organization Address [facility] Co de Phone Number [facility] [address] [place] [address] [phone] * (ABNORMAL) Immunoglobulins, Quantitative, IgA, IgG, IgM (10/18/2024 3:30 PM EDT) IMMUNOGLOBULIN G 2626(A) 600 - 1540 mg/dL [facility] IMMUNOGLOBULIN A 611(A) 70 - 320 mg/dL [facility] Immunoglobulin M 139 50 - 300 mg/dL [facility] Comment:THIS TEST WAS PERFOR MED AT:[employer] [address] [phone] BULLARD MD Blood Venous blood specimen / Unknown 10/18/2024 3:30 PM EDT 10/18/2024 3:30 PM EDT us Gallo Flores MD LAB BLOOD ORDERABLES Final Result Performing Organization Address [facility]/ZIP Co de Phone Number [facility] [address] [place] [phone] * Lipid Panel, Standard (09/13/2024 11:29 AM EDT) Triglycerides 58 <150 mg/dL [facility] Comment:Desirable Triglyceri de: less than 150 mg/dLBorderline High Triglyceride 150-199 mg/dLHigh Triglyceride: 200-499 mg/dLVery High Triglyceride: greater than or equal to 5OO mg/dL Cholesterol 147 <200 mg/dL [facility] Comment:Desirable Cholestero l: less than 200 mg/dLBorderline High Cholesterol: 200-239 mg/dLHigh Cholesterol: greater than 239 mg/dL LDL Cholesterol Calculated 87 <100 mg/dL [facility] Comment:Desirable LDL: less than 100 mg/dLNear Optimal/Above Optimal LDL: 110- 129 mg/dLBorderline High LDL: 130-159 mg/dLHigh LDL: 160-189 mg/dLVery High LDL: greater than or equal to 190 mg/dL HDL Cholesterol 49 >40 mg/dL [facility] Comment:Desirable HDL: great er than 40 mg/dL Note: This HDL assay may give artificially low results in patients with liver disease. Blood Venous blood specimen / Unknown 09/13/2024 11:29 AM EDT 09/13/2024 2:28 PM EDT Gallo Flores MD LAB BLOOD ORDERABLES Final Result [facility] [address] [place] [address] [phone] from Last 3 Months or Most Recently Relevant to Health Maintenance Insurance [facility] ASSISTED OPTIONS (O D-SNP) [place] [id number] Care Teams Flotation Operator Relationship Specialty Start Date End Date Gallo Flores MD [address] [place] [phone] PCP - General Internal Medicine 06/30/11 [facility] 10/15/24
--- OUTSIDE RECORDS SUMMARY | 2025-01-03 10:11 | XMS_ITS | Encounter Summary ---
Author Organization [employer] Address [address] [facility] 7t [place] [address] Care Team Providers Care Core Machine Operator Name Role Phone Gallo Flores MD Primary Care Provider [phone] Encounter Details Date Type Department Care Team ([facility] st Contact Info) Description 10/23/2024 Orders Only [facility] MED & PEDS [address] [place], [place] [phone] Gallo Flores MD [address] [place], [place] [phone] Transaminitis (Primary Dx) Social History Tobacco Use [...] documented as of this encounter Care Teams Core Machine Operator Relationship Specialty Start Date End Date Gallo Flores MD [address] [place] [phone] PCP - General Internal Medicine 06/30/11 [facility] 10/15/24 documented as of this encounter
[2025-01-03 10:50] LABS: Anion Gap 12 (12-20); Blood Urea Nitrogen 21 mg/dL (9-16); Carbon Dioxide 27 mmol/L (22-29); Chloride 107 mmol/L (96-108); Estimated Glomerular Filt Rate 39; Potassium 4.6 mmol/L (3.3-5.1); Sodium 141 mmol/L (135-145)
== END 2025-01-03 09:10 | disposition home or self-care (01) ==
LOC: HO.LAB 09:09
PROVIDERS: PCP Internal Medicine; Visit Provider Internal Medicine Nephrology
DX: I12.9 Hypertensive chronic kidney disease with stage 1 through stage 4 chronic kidney disease, or unspecified chronic kidney disease (principal); N18.32 Chronic kidney disease, stage 3b
CPT/HCPCS: 36415; 80051; 82565; 84520

== ENCOUNTER 2025-01-05 11:06 | Outpatient (AMB) | payer OTHER, SELFPAY ==
--- NOTE | 2025-01-05 11:28 | HO.NEPHOV_ITS ---
Vital Signs 01/05/25 11:31 Height 5 ft 4 in Weight 171 lb 8 oz BMI 29.4 BP 156/70 H Blood Pressure Location Rt brachial Position Sitting Pulse 65 Pulse Source Pulse Oximeter Pulse Oximetry (%) 95 Oxygen Delivery Method Room Air Intake Visit Reasons: 2mon f/u w/labs-Conf Wireless Construction Manager Required: Yes Wireless Construction Manager Language: Sample Case Porter Services: Wireless Construction Manager Offered & Declined ([facility] Wireless Construction Manager services refused ) Accompanied by: Other Relationship Allergies No Known Allergies Allergy (Verified 01/05/25 11:30) HPI Comments Details: Karri was seen in F/U for CKD and HTN. He has interstitial lung disease. He recently was in the [facility] 10/11-10/14 for x3 days of cough with hemoptysis. Has underlying ILD for which he is followed by pulmonology at [facility]. Was diagnosed wtih CAP and was treated with IV antibiotics. His hemoptysis resolved with nebulizer treatment per notes. Of note, had CT angio to rule out PE on 10/11/24. Creatinine 1.74 on 10/11/24. 10/14/24 (discharge), creatinine is 2.61. Patient was instructed to continue home medications, including losartan, torsemide and dapagliflozin on discharge. He has been feeling well since his discharge from the hospital. He denies cough, hemotpysis, chest pain, shortness of breath, abdominal pain, flank pain, reports normal urine output without urinary symptoms. Reports some chronic, mild LE edema for which he takes torsemide. There were no new complaints at the time of this office visit [facility] Medical History Paroxysmal atrial fibrillation Respiratory failure with hypoxia Nocturnal hypoxemia Pulmonary fibrosis Pulmonary asbestosis COPD (chronic obstructive pulmonary disease) Social History Patient Tobacco Use Status: Never used Tobacco Review of Systems Const All systems reviewed & are unremarkable except as noted in HPI and below Physical Exam Vital Signs: Last Vital Signs Pulse 65 01/05/25 11:31 BP 156/70 H 01/05/25 11:31 Pulse Ox 95 01/05/25 11:31 Oxygen Delivery Method Room Air 01/05/25 11:31 BMI result Body Mass Index 29.4 Const General: comfortable and no acute distress Orientation/consciousness: patient oriented x3 HEENT Head: Yes normocephalic Mouth: Normal oral and palatal mucosa present Eyes EOM: EOMs intact bilaterally Neck Neck: Yes supple Resp Auscultation: clear to auscultation bilaterally Cardio Jugular venous distension: no JVD Rate: regular rate GI Palpation (GI): Soft to palpation Auscultation: normal bowel sounds General: Yes no CVA tenderness Back/Spine/Pelvis Back: no CVA tenderness Skin General skin exam: no rashes or lesions noted Neuro General: patient oriented x3 and moves all extremities Extrem General: Yes no pedal edema Results Reviewed Nephrology Results: Hgb, (14.0-18.0) 12.7 g/dl L 10/18/24 WBC, (4.8-10.8) 6.6 X10*3/uL 10/18/24 Plt Count, (160-400) 281 X10*3/uL 10/18/24 Sodium, (135-145) 141 mmol/L 01/03/25 Potassium, (3.3-5.1) 4.6 mmol/L 01/03/25 Chloride, (96-108) 107 mmol/L 01/03/25 Carbon Dioxide, (22-29) 27 mmol/L 01/03/25 BUN, (9-16) 21 mg/dL H 01/03/25 Creatinine, (0.5-1.4) 1.69 mg/dL H 01/03/25 Calcium, (8.4-10.2) 9.9 mg/dL 10/18/24 Assessment & Plan Assessment & Plan (1) Hypertension: Code(s): I10 - Essential (primary) hypertension Category: Medical Qualifiers: Hypertension type: primary hypertension Qualified Code(s): I10 - Essential (primary) hypertension (2) CKD (chronic kidney disease) stage 3, GFR 30-59 ml/min: Code(s): N18.30 - Chronic kidney disease, stage 3 unspecified Category: Medical Qualifiers: Chronic kidney disease stage 3 subtype: stage 3b (GFR 30-44) Qualified Code(s): N18.32 - Chronic kidney disease, stage 3b (3) Proteinuria: Code(s): R80.9 - Proteinuria, unspecified Category: Medical Qualifiers: Proteinuria type: other Qualified Code(s): R80.8 - Other proteinuria Plan CKD 3 at baseline- stable Blood pressure at goal at home On SGLT2 i; No NSAID's; Needs weight loss C/W torsemide current dose No other medication changes today Labs / F/U 3 M Orders: Orders Blood Urea Nitrogen 3 Months I10 - Essential (primary) hypertension, N18.32 - Chronic kidney disease, stage 3b, R80.8 - Other proteinuria Creatinine 3 Months I10 - Essential (primary) hypertension, N18.32 - Chronic kidney disease, stage 3b, R80.8 - Other proteinuria Electrolytes 3 Months I10 - Essential (primary) hypertension, N18.32 - Chronic kidney disease, stage 3b, R80.8 - Other proteinuria Coding Level of Care Code Est Pt Level 4 (13028) Diagnoses Primary hypertension I10 Hypertension type: primary hypertension Stage 3b chronic kidney disease N18.32 Chronic kidney disease stage 3 subtype: stage 3b (GFR 30-44) Other proteinuria R80.8 Proteinuria type: other
[2025-01-05 11:31] VITALS: BP 156/70; PULSE 65; O2SAT 95; BMI 29.4
--- OUTSIDE RECORDS SUMMARY | 2025-01-05 13:50 | XMS_ITS | Encounter Summary ---
Author Organization [employer] Address [address] [facility] 7t [place] [address] Care Team Providers Care Cloth Spreader Name Role Phone Gallo Flores MD Primary Care Provider [phone] Reason for Visit * Reason Onset Date Comments Error 07/29/2023 Encounter Details Date Type Department Care Team (Late st Contact Info) Description 07/29/2023 Telephone [facility] [address] [place] [address] Gallo Flores MD [address] [place], [place] [phone] Error Social History Tobacco Use Types Packs/Day Years Used Date Smoking Tobacco: Former Cigarettes 0.5 50 1 962 - 2012 Smokeless Tobacco: Never Depression Answer Date Recorded Patient Health Questionnaire-9 Score 0 06/29/2022 Housing Stability Answer Date Recorded What is your housing situation today? I do not have housing (Staying with others, in a hotel, in a fci, living outside on the street, on a [...] documented as of this encounter Care Teams Cloth Spreader Relationship Specialty Start Date End Date Gallo Flores MD [address] [place] [phone] PCP - General Internal Medicine [facility] documented as of this encounter
--- OUTSIDE RECORDS SUMMARY | 2025-01-05 13:50 | XMS_ITS | Encounter Summary ---
Author Organization [employer] Address [address] [facility] 7t [place] [address] Care Team Providers Care Electrician Apprentice Name Role Phone Gallo Flores MD Primary Care Provider [phone] Reason for Referral * Imaging (Routine) - Authorized Specialty Diagnoses / Procedures Referred By Clementina nichols Referred To Contact Radiology Diagnoses Transaminitis Procedures US Abdomen Comp w elastography Gallo Flores MD [address] [place] [address] Phone: tel: fax: [address] Phone: tel: fax: Referral ID Status Reason Start Date Expiration Date V isits Requested Visits Authorized [id number] Authorized 09/14/2024 09/14/2025 1 1 Encounter Details Date Type Department Care Team (Late st Contact Info) Description 09/14/2024 Orders Only [facility] [address] [place] [address] Gallo Flores MD [address] [place], [place] [phone] Transaminitis (Primary Dx) Social History Tobacco Use [...] EDT) ~Hepatitis B Surface Antibody REACTIVE Nonreactive [facility] Comment:REACTIVE: > 11.99 mI U/mL Blood Venous blood specimen / Unknown 10/18/2024 3:30 PM EDT 10/18/2024 3:30 PM EDT Gallo Flores MD LAB BLOOD ORDERABLES Final Result [facility] [address] [place] [address] [phone] * (ABNORMAL) Prothrombin Time-INR (10/18/2024 3:30 PM EDT) Prothrombin Time 14.2(H) 10.9 - 12.4 SEC [facility] INTERNATIONAL NORM RATIO 1.2(H) 0.9 - 1.1 [facility] Comment:INTERNATIONAL NORMAL IZED RATIO (INR) REFERENCE [...] BLOOD ORDERABLES Final Result Performing Organization Address [facility] Co de Phone Number [facility] [address] [place] [phone] * (ABNORMAL) Immunoglobulins, Quantitative, IgA, IgG, IgM (10/18/2024 3:30 PM EDT) IMMUNOGLOBULIN G 2626(A) 600 - 1540 mg/dL [facility] IMMUNOGLOBULIN A 611(A) 70 - 320 mg/dL [facility] Immunoglobulin M 139 50 - 300 mg/dL [facility] Comment:THIS TEST WAS PERFOR MED AT:[email or web address] [place] [phone] BULLARD MD Blood Venous blood specimen / Unknown 10/18/2024 3:30 PM EDT 10/18/2024 3:30 PM EDT us Gallo Flores MD LAB BLOOD ORDERABLES Final Result Performing Organization Address [facility] Co de Phone Number [facility] [address] [place] [phone] documented in this encounter Visit Diagnoses Diagnosis Transaminitis- Primary Nonspecific elevation of levels of transaminase or lactic acid dehydrogenase (LDH) documented in this encounter Additional Health Concerns Assessment Noted Time PHQ-9 Depression Total Score: 0 09/14/19 25 11:20 AM EDT documented as of this encounter Care Teams Electrician Apprentice Relationship Specialty Start Date End Date Gallo Flores MD [address] [place] [phone] PCP - General Internal Medicine 06/30/11 [facility] 10/15/24 documented as of this encounter
--- OUTSIDE RECORDS SUMMARY | 2025-01-05 13:50 | XMS_ITS | Clinical Summary ---
Author Organization [address] [facility] Address 175 [place] [address] Phone Care Team Providers Care Land Examiner Name Role Phone Nadeen Chris [facility] Primary Care Provider [phone] Allergies No known active allergies Medications dilTIAZem CD (CARDIZEM CD) 180 mg 24 hr capsule 5 Active FeroSuL 325 mg (65 mg iron) tablet 5 Active hydrALAZINE (APRESOLINE) 25 mg tablet Take 1 tablet (25 mg total) by mouth. 5 Active isosorbide mononitrate (IMDUR) 30 mg 24 hr tablet Take 1 tablet (30 mg total) by mouth. 5 Active omeprazole (PriLOSEC) [address] capsule 5 Active torsemide (DEMADEX) 20 mg tablet Take 1 tablet (20 mg total) by mouth. 2 Active clotrimazole (LOTRIMIN) 1 % cream Apply topically 2 (two) times a day. 30 g 3 5 12/08/19 25 Encounters Date Type Department Care Team Description 11/07/2024 10:30 AM EDT Consult Orthopedic Surgery [facility] 250 175 [facility] [address] [place] [phone] Bernard Stein, DPM Dermatophytosis of nail (Primary Dx); Pain [...] Upcoming Encounters Date Type Department Care Team ([facility] st Contact Info) Description 01/09/2025 10:30 AM EDT Office Visit Orthopedic Surgery - [place] 250 175 [facility] 250 [place] [address] Bernard Stein, DPM [address] [address] Health Maintenance Due Date Last Done Comments [...] this topic Insurance [facility] OPTIONS Member Subscriber Plan / Payer (Ef fective 2024-Present) Name:Karri Huntley Relation to Subscriber:Self Name:Karri Huntley Payer ID:[id number] Group ID:Not on file Type:Not on file Address: [place] [address] [place] [address] Care Teams Land Examiner Relationship Specialty Start Date End Date Nadeen Chris FNP [address] [place] [address] PCP - General Family Medicine 08/09/24
--- OUTSIDE RECORDS SUMMARY | 2025-01-05 13:50 | XMS_ITS | Encounter Summary ---
Author Organization [employer] Address 75 [facility] 7t [place] [address] Care Team Providers Care Slitter And Rewinder Name Role Phone Gallo Flores MD Primary Care Provider [phone] Encounter Details Date Type Department Care Team (Late st Contact Info) Description 01/03/2025 Orders Only GENERIC EXTERNAL DATA DEPARTMENT Provider, Generic External Data Social History Tobacco Use Types Packs/Day Years [...] Procedure Name Priority Date/Time Associated Diagnosis Comments CREATININE, SERUM Routine 01/03/2025 9:2 8 AM EDT UREA NITROGEN (BUN) Routine 01/03/2025 9 :28 AM EDT ELECTROLYTE PANEL Routine 01/03/2025 9:2 8 AM EDT documented in this encounter Results * (ABNORMAL) Creatinine, Serum (01/03/2025 9:28 AM EDT) Creatinine, Serum 1.69(H) 0.5 - 1.4 mg/dL [facility] Estimated Glomerular Filt Rate 39 [facility] Comment:Chronic Kidney Disea se: Estimated GFR < 60 mL/min/1.60f4Jefnje Kidney Disease: Estimated GFR < 15 mL/min/1.73m2 01/03/2025 9:28 AM EDT 01/03/2025 9:28 AM EDT us Generic External Data Provider LAB BLOOD ORDERAB LES Final Result [facility] [address] [place] [address] [phone] * (ABNORMAL) BUN (Blood Urea Nitrogen) (01/03/2025 9:28 AM EDT) Urea Nitrogen (BUN) 21(H) 9 - 16 mg/dL [facility] 01/03/2025 9:28 AM EDT 01/03/2025 9:28 AM EDT us Generic External Data Provider LAB BLOOD ORDERAB LES Final Result Performing Organization Address [facility] Co de Phone Number [facility] [address] [place] [phone] * Electrolyte Panel (01/03/2025 9:28 AM EDT) Sodium 141 135 - 145 mmol/L [facility] Potassium 4.6 3.3 - 5.1 mmol/L [facility] Chloride 107 96 - 108 mmol/L [facility] Carbon Dioxide 27 22 - 29 mmol/L [facility] Anion Gap 12 12 - 20 [facility] 01/03/2025 9:28 AM EDT 01/03/2025 9:28 AM EDT us Generic External Data Provider LAB BLOOD ORDERAB LES Final Result Performing Organization Address [facility] de Phone Number [facility] [address] [place] [phone] documented in this encounter Visit Diagnoses Not on filedocumented in this encounter Additional Health Concerns Assessment Noted Time PHQ-9 Depression Total Score: 0 09/14/19 11:20 AM EDT documented as of this encounter Care Teams Slitter And Rewinder Relationship Specialty Start Date End Date Gallo Flores MD [address] [place] [phone] PCP - General Internal Medicine [facility] documented as of this encounter
--- OUTSIDE RECORDS SUMMARY | 2025-01-05 13:50 | XMS_ITS | Clinical Summary ---
Author Organization [facility] Address [address] [place] [address] Phone Care Team Providers Care Private Duty Rn Name Role Phone Gallo Flores MD Primary [...] to complete this topic Insurance [address] [place] [address] [facility] ([id number]) [facility] ([id number]) Care Teams Private Duty Rn Relationship Specialty Start Date End Date Gallo Flores MD PCP - General 04/01/20
--- OUTSIDE RECORDS SUMMARY | 2025-01-05 13:50 | XMS_ITS | Encounter Summary ---
Author Organization [employer] Address 75 [facility] 7t [place] [address] Care Team Providers Care Collections Assistant Name Role Phone Gallo Flores MD Primary Care Provider [phone] Encounter Details Date Type Department Care Team ([facility] st Contact Info) Description 12/01/2023 Abstract [facility] CH[facility] MED & PEDS [address] [place] [address] Gallo Flores MD [address] [place] [address] Social History Tobacco Use Types Packs/Day Years Used Date Smoking Tobacco: Former Cigarettes 0.5 50 1 96 - 2011 Smokeless Tobacco: Never Depression Answer [...] documented as of this encounter Care Teams Collections Assistant Relationship Specialty Start Date End Date Gallo Flores MD [address] [place] [phone] PCP - General Internal Medicine 06/30/11 [facility] 10/15/24 documented as of this encounter
--- OUTSIDE RECORDS SUMMARY | 2025-01-05 13:50 | XMS_ITS | Encounter Summary ---
Author Organization [employer] Address 75 [facility] [place] [address] Care Team Providers Care Psychotherapist Counselor Name Role Phone Gallo Flores MD Primary Care Provider [phone] Encounter Details Date Type Department Care Team (Late st Contact Info) Description 07/27/2023 Orders Only [facility] CH[facility] MED & PEDS [address] [place], [place] [phone] Provider, MD Sangeeta Social History Tobacco Use Types Packs/Day Years Used Date Smoking Tobacco: Former Cigarettes 0.5 50 1 962 - 2011 Smokeless Tobacco: Never Depression Answer Date Recorded Patient Health Questionnaire-9 Score 0 06/29/2022 Housing Stability Answer Date Recorded What is your housing situation today? I do not have housing (Staying with others, in a hotel, in a fpc, living outside on the street, on a [...] documented as of this encounter Care Teams Psychotherapist Counselor Relationship Specialty Start Date End Date Gallo Flores MD [address] [place] [phone] PCP - General Internal Medicine 06/30/11 [facility] 10/15/24 documented as of this encounter
--- OUTSIDE RECORDS SUMMARY | 2025-01-05 13:51 | XMS_ITS | Patient Health Record ---
Author Organization [facility] Address [address] [place] [address] Care Team Providers Care Financial Services Auditor Name Role Phone alessandra quesada Primary Care Provider UnavailJewel Ruelas Jr Unavailable [phone] Reason For Referral No Information Plan Of Treatment No Information Insurance Providers Payer Name Payer Address Payer Phone Subscriber Number Group Number Insured Name Patient Relationship to Insured Coverage Start Date Coverage End Date [place] [address] [place] [address] [id number] SANDIE AKERS Self - patient is the insured MEDICAID OF [facility] [address] [place] [address] [id number] SANDIE AKERS Self - patient is the insured
--- OUTSIDE RECORDS SUMMARY | 2025-01-05 13:51 | XMS_ITS | Encounter Summary ---
Author Organization [employer] Address 75 [facility] 7t [place] [address] Care Team Providers Care Mental Health Program Specialist Name Role Phone Gallo Flores MD Primary Care Provider [phone] Encounter Details Date Type Department Care Team ([facility] st Contact Info) Description 10/23/2024 Orders Only [facility] CHC MED & PEDS [address] [place], [place] [phone] Gallo Flores MD 505 [place], [place] [phone] Transaminitis (Primary Dx) Social History Tobacco Use [...] documented as of this encounter Care Teams Mental Health Program Specialist Relationship Specialty Start Date End Date Gallo Flores MD [address] [place] [phone] PCP - General Internal Medicine 06/30/11 [facility] 10/15/24 documented as of this encounter
--- OUTSIDE RECORDS SUMMARY | 2025-01-05 13:51 | XMS_ITS | Clinical Summary ---
Author Organization [employer] Address 75 [facility] 7t [place] [address] Care Team Providers Care State Farm Agent Name Role Phone Gallo Flores MD Primary Care Provider [phone] Allergies No known active allergies Medications dilTIAZem [...] fraction 0 09/09/2023 Chronic hypoxic respiratory failure ([facility]) Pulmonary hypertension ([facility]) 07/25/2023 Vitamin D deficiency 07/25/2023 Essential (primary) hypertension 07/25/2023 Gastroesophageal reflux disease without esophagi tis 07/25/2023 ILD (interstitial lung disease) ([facility]) 2023 Microcytic anemia 07/25/2023 Anemia due to blood loss 07/21/2023 Paroxysmal atrial flutter ([facility]) 07/21/2023 Pulmonary fibrosis 07/21/2023 Benign hypertensive heart an d CKD, 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), w CHF 05/20/2023 Cardiomyopathy 06/29/2022 COPD without exacerbation ([facility]) 06/29/2022 Heart failure 07/04/2021 Proteinuria 06/18/2021 Chronic obstructive lung disease 10/29/2020 Benign hypertensive renal disease 06/07/2020 Alkaline phosphatase raised 02/19/2016 CKD (chronic kidney disease) stage 3, GFR 30-59 ml/min ([facility]) 02/17/2016 Abdominal pain 08/01/2012 Hypertension 06/09/2011 Chest pain 06/09/2011 Noninfectious gastroenteritis 06/09/2011 Encounters Date Type Department Care Team Description 01/03/2025 Orders Only GENERIC EXTERNAL DATA DEPARTMENT Provider, Generic External Data 10/24/2024 Refill [facility] MED & PEDS [address] [place] [address] Gallo Flores MD 10/23/2024 Results Follow-Up [facility] MED & PEDS [address] [place] [address] Sandra Keys RN Immunoglobulins, Quantitative, IgA, IgG, IgM, Prothrombin Time-INR, Hepatitis B Surface Antibody, Qualitative 10/23/2024 Telephone [facility] MED & PEDS [address] [place] [address] Gallo Flores MD Hospital Follow-up 10/23/2024 Orders Only [facility] MED & PEDS [address] [place] [address] Gallo Flores MD Transaminitis (Primary Dx) 10/18/2024 Orders Only GENERIC EXTERNAL DATA DEPARTMENT Provider, Generic External Data 10/16/2024 Telephone [facility] MED & PEDS [address] [place] [address] Gallo Flores MD requesting call back from [...] 1-dose 75+ series) 09/11/2019 COVID-19 Vaccine ( season) 2024 12/30/2023, 05/30/2020, [...] PANEL Routine 01/03/2025 9:2 8 AM EDT AMB REFERRAL TO PODIATRY Routine 11/07/2024 Acute [...] Recently Relevant to Health Maintenance Results * (ABNORMAL) Creatinine, Serum (01/03/2025 9:28 AM EDT) Creatinine, Serum 1.69(H) 0.5 - 1.4 mg/dL [facility] Estimated Glomerular Filt Rate 39 [facility] Comment:Chronic Kidney Disea se: Estimated GFR < 60 mL/min/1.05e0Ccsckc Kidney Disease: Estimated GFR < 15 mL/min/1.73m2 01/03/2025 9:28 AM EDT 01/03/2025 9:28 AM EDT us Generic External Data Provider LAB BLOOD ORDERAB LES Final Result Performing Organization Address City/[facility]/ZIP Co de Phone Number [facility] [address] [place] [phone] * (ABNORMAL) BUN (Blood Urea Nitrogen) (01/03/2025 9:28 AM EDT) Urea Nitrogen (BUN) 21(H) 9 - 16 mg/dL [facility] 01/03/2025 9:28 AM EDT 01/03/2025 9:28 AM EDT us Generic External Data Provider LAB BLOOD ORDERAB LES Final Result Performing Organization Address City/[facility]/ZIP Co de Phone Number [facility] [address] [place] [phone] * Electrolyte Panel (01/03/2025 9:28 AM EDT) Sodium 141 135 - 145 mmol/L [facility] Potassium 4.6 3.3 - 5.1 mmol/L [facility] Chloride 107 96 - 108 mmol/L [facility] Carbon Dioxide 27 22 - 29 mmol/L [facility] Anion Gap 12 12 - 20 [facility] 01/03/2025 9:28 AM EDT 01/03/2025 9:28 AM EDT us Generic External Data Provider LAB BLOOD ORDERAB LES Final Result [facility] [address] [place] [phone] [phone] * Referral to Podiatry (11/07/2024) us Nadeen YOUNGBLOODP OUTPATIENT REFERRAL ORDERABLES Final Result * (ABNORMAL) CBC auto differential (10/18/2024 3:30 PM EDT) White Blood Count 6.6 4.8 - 10.8 X10*3/uL [facility] Red Blood Count 4.85 4.60 - 5.80 X10*6/uL [facility] Hemoglobin 12.7(L) 14.0 - 18.0 g/dl [facility] Hematocrit 40.5(L) 42.0 - 52.0 % [facility] Mean Corpuscular Volume 83.5 80.0 - 98.0 fL [facility] Mean Corpuscular Hemoglobin 26.2(L) 27.0 - 33.0 pg [facility] Mean Corpuscular HGB Conc 31.4 31.0 - 36.0 g/dl [facility] Red Cell Distribution Width 15.4 11.0 - 16.0 % [facility] Platelet Count 281 160 - 400 X10*3/uL [facility] Mean Platelet Volume 9.9 9.4 - 12.4 fL [facility] Neutrophils Percent Auto 53.2 45 - 73 % [facility] Imm Gran Pct Auto 0.3 0.0 - 0.4 % [facility] Lymphocytes Percent Auto 33.0 20 - 40 % [facility] Monocytes Percent Auto 8.8 2 - 11 % [facility] Eosinophils Percent Auto 3.9 0 - 4 % [facility] Basophils Percent Auto 0.8 0 - 2 % [facility] NRBC Pct Auto 0.0 0.0 - 0.2 /100WBC [facility] Neutrophils Absolute Auto 3.5 2.0 - 8.3 x10*3/uL [facility] Imm Gran Abs Auto 0.02 0.00 - 0.03 X10*3/uL [facility] Lymphocytes Absolute Auto 2.2 1.2 - 4.9 X10*3/uL [facility] Monocytes Absolute Auto 0.6 0.1 - 1.2 X10*3/uL [facility] Eosinophils Absolute Auto 0.3 0.0 - 0.4 X10*3/uL [facility] Basophils Absolute Auto 0.1 0.0 - 0.2 X10*3/uL [facility] NRBC Abs Auto 0.000 0.0 - 0.012 X10*3/uL [facility] 10/18/2024 3:30 PM EDT 10/18/2024 3:30 PM EDT us Generic External Data Provider LAB BLOOD ORDERAB LES Final Result [facility] [address] [place] [phone] * Hepatitis B Surface Antibody, Qualitative (10/18/2024 3:30 PM EDT) ~Hepatitis B Surface Antibody REACTIVE Nonreactive [facility] Comment:REACTIVE: > 11.99 mI U/mL Blood Venous blood specimen / Unknown 10/18/2024 3:30 PM EDT 10/18/2024 3:30 PM EDT us Gallo Flores MD LAB BLOOD ORDERABLES Final Result Performing Organization Address [facility]/ZIP Co de Phone Number [facility] [address] [place] [phone] * (ABNORMAL) Prothrombin Time-INR (10/18/2024 3:30 PM EDT) Prothrombin Time 14.2(H) 10.9 - 12.4 SEC [facility] INTERNATIONAL NORM RATIO 1.2(H) 0.9 - 1.1 [facility] Comment:INTERNATIONAL NORMAL IZED RATIO (INR) [...] BLOOD ORDERABLES Final Result Performing Organization Address [facility] Co de Phone Number [facility] [address] [place] [phone] * (ABNORMAL) Immunoglobulins, Quantitative, IgA, IgG, IgM (10/18/2024 3:30 PM EDT) IMMUNOGLOBULIN G 2626(A) 600 - 1540 mg/dL [facility] IMMUNOGLOBULIN A 611(A) 70 - 320 mg/dL [facility] Immunoglobulin M 139 50 - 300 mg/dL [facility] Comment:THIS TEST WAS PERFOR MED AT:[facility] [place] [phone] BULLARD MD Blood Venous blood specimen / Unknown 10/18/2024 3:30 PM EDT 10/18/2024 3:30 PM EDT us Gallo Flores MD LAB BLOOD ORDERABLES Final Result Performing Organization Address [facility] Co de Phone Number [facility] [address] [place] [phone] * Lipid Panel, Standard (09/13/2024 11:29 AM EDT) Triglycerides 58 <150 mg/dL [facility] Comment:Desirable Triglyceri de: less than 150 mg/dLBorderline High Triglyceride 150-199 mg/dLHigh Triglyceride: 200-499 mg/dLVery High Triglyceride: greater than or equal to 5OO mg/dL Cholesterol 147 <200 mg/dL [facility] Comment:Desirable Cholestero l: less than 200 mg/dLBorderline High Cholesterol: 200-239 mg/dLHigh Cholesterol: greater than 239 mg/dL LDL Cholesterol Calculated 87 <100 mg/dL [facility] Comment:Desirable LDL: less than 100 mg/dLNear Optimal/Above Optimal LDL: 110- 129 mg/dLBorderline High LDL: 130-159 mg/dLHigh LDL: 160-189 mg/dLVery High LDL: greater than or equal to 190 mg/dL HDL Cholesterol 49 >40 mg/dL [facility] Comment:Desirable HDL: great er than 40 mg/dL Note: This HDL assay may give artificially low results in patients with liver disease. Blood Venous blood specimen / Unknown 09/13/2024 11:29 AM EDT 09/13/2024 2:28 PM EDT us Gallo Flores MD LAB BLOOD ORDERABLES Final Result Performing Organization Address [facility]/ZIP Co de Phone Number [facility] [address] [place] [phone] from Last 3 Months or Most Recently Relevant to Health Maintenance Insurance ASH Ch[place] [id number] [facility] [employer] OPTIONS (HMO D-SNP[place] [id number] [place] [id number] [place] [id number] [place] [id number] Care Teams State Farm Agent Relationship Specialty Start Date End Date Gallo Flores MD [address] [place] [address] [place] [phone] PCP - General Internal Medicine [facility]
== END 2025-01-05 11:46 | disposition home or self-care (01) ==
LOC: HO.HKA 11:07
PROVIDERS: PCP Internal Medicine; Visit Provider Internal Medicine Nephrology
DX: I10 Essential (primary) hypertension (principal); N18.32 Chronic kidney disease, stage 3b; R80.8 Other proteinuria
CPT/HCPCS: 99214

== ENCOUNTER → 2025-01-05 11:06 | Outpatient (BNVA) | payer OTHER, SELFPAY | PROVIDERS: PCP Internal Medicine; Visit Provider Internal Medicine Nephrology | DX: N18.32 Chronic kidney disease, stage 3b (principal); I10 Essential (primary) hypertension; R80.8 Other proteinuria | CPT/HCPCS: 99212 ==

== ENCOUNTER 2025-02-05 10:49 | Outpatient (AMB) | payer OTHER, SELFPAY ==
[2025-02-05 10:54] VITALS: BP 150/64; PULSE 75; O2SAT 95; BMI 29.3
--- NOTE | 2025-02-05 10:54 | MHC.OFFVIS ---
Vital Signs 02/05/25 10:54 Height 5 ft 4 in Weight 170 lb 13.732 oz BMI 29.3 BP 150/64 H Blood Pressure Location Lt brachial Position Sitting Pulse 75 Pulse Source Pulse Oximeter Pulse Oximetry (%) 95 Oxygen Delivery Method Room Air Intake Visit Reasons: COPD Intake Note: pt is here for follow up and states he is good, pt is interested in trying to qualify for handicap placard. Behavioral Health Therapist Required: No Behavioral Health Therapist Services: Behavioral Health Therapist Offered & Declined Surveillance Manager: Surveillance Manager offered & declined Allergies No Known Allergies Allergy (Verified 02/05/25 11:08) Medication List - Last Reconciled 02/05/25 by Lorin Perry MD albuterol sulfate 90 mcg/actuation 2 puffs inhalation Q4-6H PRN 30 days apixaban (Eliquis) 5 mg PO BID cholecalciferol (vitamin D3) (Vitamin D3) 25 mcg PO DAILY dapagliflozin propanediol (Farxiga) 10 mg PO DAILY diltiazem HCl ER 180 mg PO DAILY ferrous sulfate 325 mg PO BID 90 days hydralazine 25 mg PO TID isosorbide mononitrate ER 30 mg PO DAILY losartan 100 mg PO DAILY omeprazole 20 mg PO DAILY torsemide 20 mg PO DAILY umeclidinium 62.5 mcg/actuation (Incruse Ellipta) 1 inh inhalation DAILY Do you need a note to return to daycare/school/sports/work: No HPI HPI COPD: Details: IN GENERAL, 79 YEARS OLD GENTLEMAN, THAI-SPEAKING, IS BROUGHT IN BY HIS DAUGHTER [place] FOR ROUTINE FOLLOW-UP. HE CLAIMS THAT BREATHING HAS BEEN STABLE LONG HE USES HIS INHALER DAILY. HE IS QUIET, WALKS SLOW, STAYS MOSTLY IN THE HOUSE. LUCKILY HE HAS HAD NO RESPIRATORY INFECTION. HIS USE OF ALBUTEROL A RESCUE INHALER IS ONLY ONCE IN A WHILE. HE HAS DIFFICULTY IN WALKING HE WOULD LIKE TO GET A HANDICAP PLAQUE FOR THE CAR. [facility] Medical History Paroxysmal atrial fibrillation Respiratory failure with hypoxia Nocturnal hypoxemia Pulmonary fibrosis Pulmonary asbestosis COPD (chronic obstructive pulmonary disease) Social History Patient Tobacco Use Status: Never used Tobacco Review of Systems Const All systems reviewed & are unremarkable except as noted in HPI and below Eyes Reports no additional complaints ENT Reports nasal congestion (Mild intermittent) Card Denies irregular heart rhythm and Denies leg edema Resp Reports as per HPI GI Reports heartburn (Controlled with med) Reports no additional complaints Musc Reports no additional complaints Skin/Breast Reports system reviewed and no additional complaints, except as documented Neuro Reports no additional complaints Psych Reports no additional complaints Physical Exam Vital Signs: Last Vital Signs Pulse 75 02/05/25 10:54 BP 150/64 H 02/05/25 10:54 Pulse Ox 95 02/05/25 10:54 Oxygen Delivery Method Room Air 02/05/25 10:54 BMI result Body Mass Index 29.3 Const General: comfortable, no acute distress, alert and awake Orientation/consciousness: patient oriented x3 HEENT Head: Yes normal to inspection General nose exam: No nasal polyps present and No nasal discharge present Face and sinus: Yes sinuses nontender Mouth: oropharynx normal Throat: Yes posterior oropharynx normal Eyes General: appearance normal, both eyes and all related structures Neck Neck: Yes normal visual inspection, Yes no lymphadenopathy, Yes trachea midline and Yes no JVD Thyroid: Thyroid normal Chest Chest palpation & inspection: normal inspection of the chest, normal palpation of entire chest wall and no tenderness Resp Other: Percussion note is resonant, he has equal breath sounds on both sides somewhat distant with prolonged expiratory phase. NO WHEEZES OR CREPITATIONS ARE HEARD. Cardio Palpation: normal PMI Rate: regular rate Rhythm: regular rhythm Heart sounds: no gallops and no murmurs GI Palpation (GI): Soft to palpation, nontender, No hepatosplenomegaly present and no masses Auscultation: normal bowel sounds Back/Spine/Pelvis Thoracic/Lumbar Spine: thoracic and lumbar spine normal to inspection Skin General skin exam: no rashes or lesions noted Neuro General: patient oriented x3 and no focal motor deficits Cranial nerves: Yes CN's II-XII intact bilaterally Extrem General: Yes normal to inspection, Yes no clubbing, cyanosis or edema and Yes no calf tenderness Psych Appearance: grossly normal and well kempt Speech and movement: Normal speech and movement present Office Procedures Spirometry Testing Spirometry Comments: In office spirometry completed with results given to Dr Perry. [id number] Spirometry Results Reviewed Results Reviewed: SPIROMETRY IN OFFICE : NORMAL . SURPERISINGLY NO EVIDENCE OF OBSTRUCTIVE OR RESTRICTIVE PULMONARY DISEASE. FVC= 87 % FEV1= 98 % FEF 25-75 =157 % Assessment & Plan Assessment & Plan (1) COPD (chronic obstructive pulmonary disease): Comment: MILD EGREE OF ASTHMA/COPD , MOSTLY WELL CONTROLLED, COUGH IS ONLY MINIMAL . FEELS BETTER WHEN HE IS USING O2 . BUT USES ONLY ONCE IN A WHILE DURING THE DAYTIME. HE DOES USE IT AT NIGHT 2 L/MINUTE. Code(s): J44.9 - Chronic obstructive pulmonary disease, unspecified Category: Medical Plan: CONTINUE USING INCRUSE ELLIPTA ONCE A DAY AND USE ALBUTEROL HFA 1 OR 2 PUFFS Q 6 HOURS ONLY P.R.N.. * EXPLAINED THAT FROM PULMONARY POINT OF VIEW HE DOES NOT QUALIFY FOR HAVING HANDICAP PLAQUE (2) Pulmonary fibrosis: Comment: MILD DEGREE OF PULMONARY FIBROSIS, SEC TO ASBESTOSIS ,STABLE . Code(s): J84.10 - Pulmonary fibrosis, unspecified Category: Medical Plan: DOES NOT NEED ANY ACTIVE TREATMENT (3) Respiratory failure with hypoxia: Comment: PATIENT DOES HAVE NOCTURNAL HYPOXEMIA WELL DAYTIME EXERTIONAL HYPOXEMIA. THE DEGREE OF HYPOXEMIA VARIES WITH THE LEVEL OF HIS CONGESTIVE HEART FAILURE. NOW THAT HIS CONGESTIVE HEART FAILURE IS WELL CONTROLLED, HE DOES NOT NEED TO USE OXYGEN DURING THE DAYTIME. CURRENTLY HE DOES NOT NEED O2 DURING THE DAYTIME. Code(s): J96.91 - Respiratory failure, unspecified with hypoxia Category: Medical Plan: ADVISE THAT HE SHOULD USE OXYGEN 2 L/MINUTE AT NIGHT AND ONLY P.R.N. DURING THE DAYTIME Orders: Orders AMB Spirometry Testing Today J44.9 - Chronic obstructive pulmonary disease, unspecified, J84.10 - Pulmonary fibrosis, unspecified Coding Level of Care Code Est Pt Level 3 (79060) Diagnoses COPD (chronic obstructive pulmonary disease) J44.9 Pulmonary fibrosis J84.10 Respiratory failure with hypoxia J96.91 CPT Codes Spirometry - CPT: 48117- Spirometry ([id number])
== END 2025-02-05 11:33 | disposition home or self-care (01) ==
LOC: HO.HPS 10:50
PROVIDERS: PCP Internal Medicine; Visit Provider Internal Medicine
DX: J44.9 Chronic obstructive pulmonary disease, unspecified (principal); J84.10 Pulmonary fibrosis, unspecified; J96.91 Respiratory failure, unspecified with hypoxia
CPT/HCPCS: 94010; 99213

== ENCOUNTER → 2025-02-05 10:49 | Outpatient (BNVA) | payer OTHER, SELFPAY | PROVIDERS: PCP Internal Medicine; Visit Provider Internal Medicine | DX: J44.9 Chronic obstructive pulmonary disease, unspecified (principal); J84.10 Pulmonary fibrosis, unspecified; J96.91 Respiratory failure, unspecified with hypoxia | CPT/HCPCS: 94010; 99212 ==